=== PATIENT | female | born 1980 | race African-American/Black ===

== ENCOUNTER 2018-10-21 13:12 | Emergency (ER) | payer MEDICAID ==
[~2018-10-21] VITALS: Ht 175.3 cm; Wt 115.7 kg
[2018-10-21 14:40] LABS: Albumin 3.6 g/dL (3.4-5.0); Anion Gap 5 (5-15); Blood Urea Nitrogen 9 mg/dL (7-18); Calcium 8.5 mg/dL (8.5-10.1); Carbon Dioxide 28 mmol/L (21-32); Chloride 106 mmol/L (98-107); Glucose 88 mg/dL (74-106); Magnesium 2.1 mg/dL (1.6-2.6); Potassium 3.6 mmol/L (3.5-5.1); Sodium 139 mmol/L (136-145)
[2018-10-21 14:43] LABS: Basophils # (auto) 0 uL; Basophils % (auto) 0.7 % (0.0-2.0); Eosinophils # (auto) 0.1 uL; Eosinophils % (auto) 1.6 % (0.0-7.0); Hematocrit 40.6 % (36.0-46.0); Hemoglobin 13.7 g/dL (12.2-16.2); Lymphocytes # (auto) 1.7 uL; Lymphocytes % (auto) 29.5 % (10.0-50.0); Mean Corpuscular Hemoglobin 30.9 pg (28.0-32.0); Mean Corpuscular Hgb Conc. 33.7 g/dL (32.0-36.0); Mean Corpuscular Volume 91.8 fL (80.0-100.0); Monocytes # (auto) 0.3 uL; Monocytes % (auto) 4.8 % (0.0-12.0); Neutrophils # (auto) 3.7 uL; Neutrophils % (auto) 63.4 % (37.0-80.0); Nucleated Red Blood Cells % 0.1 %; Platelet Count (auto) 236 10^3/uL (140-450); Red Blood Cells 4.43 10^6/uL (4.0-5.20); Red Cell Distribution Width 13.2 % (11.8-14.3); White Blood Cell 5.8 10^3/uL (4.4-10.8)
[2018-10-21 14:47] LABS: Alanine Aminotransferase 27 U/L (13-56); Alkaline Phosphatase 86 U/L (45-117); Aspartate Aminotransferase 22 U/L (15-37); BUN/Creatinine Ratio 8.3; Bilirubin, Total 0.6 mg/dL (0.2-1.0); GFR African American 72 mL/min; GFR Non-African American 60 mL/min; Total Protein 7.3 g/dL (6.4-8.2)
[2018-10-21] MEDS ORDERED: SODIUM CHLORIDE 0.9% 1,000 ML IV ONE (15:30)
[2018-10-21] MEDS ORDERED: ALBUTEROL SULF 2.5 MG/0.5ML(0.5%) NEB SOLN NEB ONE (15:30)
[2018-10-21] MEDS ORDERED: IPRATROPIUM BROM 0.5 MG/2.5ML INH SOL NEB ONE (15:30)
[2018-10-21 17:13] VITALS: BP 164/99
== END 2018-10-21 17:32 | disposition home or self-care (01) ==
LOC: ER 13:12
DX: J45.901 Unspecified asthma with (acute) exacerbation (principal); M79.661 Pain in right lower leg; I10 Essential (primary) hypertension; E07.9 Disorder of thyroid, unspecified; Z88.5 Allergy status to narcotic agent; Z88.6 Allergy status to analgesic agent; Z88.8 Allergy status to other drugs, medicaments and biological substances; Z90.49 Acquired absence of other specified parts of digestive tract; Z98.51 Tubal ligation status; Z85.038 Personal history of other malignant neoplasm of large intestine
CPT/HCPCS: 36415; 71046; 80053; 83735; 83880; 84484; 84702; 85025; 85379; 93005; 93971; 94640; 99284; J7611; J7644

== ENCOUNTER 2019-09-18 23:07 | Emergency (ER) | payer MEDICAID ==
[~2019-09-18] VITALS: Ht 175.3 cm; Wt 117.9 kg
[2019-09-18] MEDS ORDERED: IPRATROPIUM BROM 0.5 MG/2.5ML INH SOL NEB ONE (23:30)
[2019-09-18] MEDS ORDERED: methylPREDNISolone SOD SUCC 125 MG/2 ML VL IV ONE (23:30)
[2019-09-18] MEDS ORDERED: ALBUTEROL SULF 2.5 MG/0.5ML(0.5%) NEB SOLN NEB ONE ×2 (23:30)
[2019-09-18 23:42] LABS: Basophils # (auto) 0.1 uL; Basophils % (auto) 0.8 % (0.0-2.0); Eosinophils # (auto) 0 uL; Eosinophils % (auto) 0.6 % (0.0-7.0); Hematocrit 39.7 % (36.0-46.0); Hemoglobin 13.5 g/dL (12.2-16.2); Lymphocytes # (auto) 1.9 uL; Lymphocytes % (auto) 26.4 % (10.0-50.0); Mean Corpuscular Hemoglobin 31.5 pg (28.0-32.0); Mean Corpuscular Hgb Conc. 33.9 g/dL (32.0-36.0); Mean Corpuscular Volume 92.8 fL (80.0-100.0); Monocytes # (auto) 0.4 uL; Neutrophils # (auto) 4.7 uL; Neutrophils % (auto) 66.2 % (37.0-80.0); Nucleated Red Blood Cells % 0.1 %; Platelet Count (auto) 239 10^3/uL (140-450); Red Blood Cells 4.27 10^6/uL (4.0-5.20); Red Cell Distribution Width 13.6 % (11.8-14.3)
[2019-09-18 23:59] LABS: Albumin 3.5 g/dL (3.4-5.0); Calcium 8.7 mg/dL (8.5-10.1); Potassium 3.7 mmol/L (3.5-5.1)
[2019-09-19 00:02] LABS: BUN/Creatinine Ratio 11.3
[2019-09-19 00:04] LABS: Bilirubin, Total 0.5 mg/dL (0.2-1.0); Total Protein 7.6 g/dL (6.4-8.2)
[2019-09-19] MEDS ORDERED: LORazepam 2MG/ML-1ML VIAL IV ONE (00:45)
[2019-09-19 02:00] VITALS: BP 140/98
== END 2019-09-19 03:07 | disposition home or self-care (01) ==
LOC: ER 23:11
DX: J45.901 Unspecified asthma with (acute) exacerbation (principal); J06.9 Acute upper respiratory infection, unspecified; I10 Essential (primary) hypertension; Z98.51 Tubal ligation status
CPT/HCPCS: 36415; 71045; 80053; 85025; 94644; 96374; 96375; 99285; J2060; J2930; J7611

== ENCOUNTER 2022-08-08 17:37 | Emergency (ER) | payer MEDICAID ==
[~2022-08-08] VITALS: Ht 175.3 cm; Wt 128.0 kg
[~2022-08-08 17:37] MED LIST: ASPI-394 PO; GABA300C10 PO; MET25T PO; PANT40TA2 PO; RANO500T PO
[2022-08-08 18:44] LABS: Basophils # (auto) 0.1 10 ^3/uL (0-0.2); Basophils % (auto) 1.4 % (0.0-2.0); Eosinophils # (auto) 0.2 10 ^3/uL (0-0.8); Eosinophils % (auto) 2.5 % (0.0-7.0); Hematocrit 42.3 % (36.0-46.0); Hemoglobin 14.4 g/dL (12.2-16.2); Lymphocytes % (auto) 32.7 % (10.0-50.0); Mean Corpuscular Hemoglobin 30.9 pg (28.0-32.0); Mean Corpuscular Volume 90.9 fL (80.0-100.0); Monocytes # (auto) 0.2 10 ^3/uL (0-1.3); Monocytes % (auto) 3.6 % (0.0-12.0); Neutrophils # (auto) 3.6 10 ^3/uL (1.6-8.6); Neutrophils % (auto) 59.8 % (37.0-80.0); Nucleated Red Blood Cells % 0.1 %; Red Blood Cells 4.65 10^6/uL (4.0-5.20); Red Cell Distribution Width 13.6 % (11.8-14.3)
[2022-08-08] MEDS ORDERED: diphenhdrAMINE HCL 50 MG/1 ML VL IV ONE (19:00)
[2022-08-08] MEDS ORDERED: DexAMETHasone SOD PHOS 10MG/1ML VIAL INJ IV ONE (19:00)
[2022-08-08] MEDS ORDERED: LACTATED RINGER'S 1,000 ML IV ONE (19:00)
[2022-08-08] MEDS ORDERED: HALOPERIDOL LACTATE 5 MG/ML INJ VIAL IV ONE (19:00)
[2022-08-08] MEDS ORDERED: ACETAMINOPHEN 325 MG TAB PO ONE (19:00)
[2022-08-08] MEDS ORDERED: MAGNESIUM SULFATE 1GM/100ML 100 ML IV ONE (19:00)
[2022-08-08 19:05] LABS: Albumin 3.8 g/dL (3.4-5.0); BUN/Creatinine Ratio 5.9; Calcium 8.7 mg/dL (8.5-10.1); Potassium 3.6 mmol/L (3.5-5.1)
[2022-08-08 19:08] LABS: Bilirubin, Total 0.5 mg/dL (0.2-1.0); Total Protein 8.1 g/dL (6.4-8.2)
[2022-08-08 21:51] LABS: Urine Bacteria FEW /hpf (None Seen); Urine Blood Negative /uL (Negative); Urine Specific Gravity 1.015 (1.001-1.035); Urine WBC <1 /hpf (0 - 5)
[2022-08-09 03:35] VITALS: BP 143/89
== END 2022-08-09 04:17 | disposition home or self-care (01) ==
LOC: ER 17:37
DX: R51.9 Headache, unspecified (principal); G89.29 Other chronic pain; J45.909 Unspecified asthma, uncomplicated; Z88.8 Allergy status to other drugs, medicaments and biological substances; Z86.73 Personal history of transient ischemic attack (TIA), and cerebral infarction without residual deficits; Z90.49 Acquired absence of other specified parts of digestive tract; Z90.710 Acquired absence of both cervix and uterus; Z98.51 Tubal ligation status; Z98.890 Other specified postprocedural states
CPT/HCPCS: 36415; 70450; 80053; 81001; 84484; 85025; 93005; 96365; 96366; 96375; 99285; J1100; J1200; J1630; J3475

== ENCOUNTER 2023-02-06 14:49 | Emergency (ER) | payer MEDICAID ==
[~2023-02-06] VITALS: Ht 177.8 cm; Wt 111.0 kg
[2023-02-06] MEDS ORDERED: cloNIDine HCL 0.1 MG TAB PO ONE (15:30)
[2023-02-06 16:05] LABS: Basophils # (auto) 0.1 10 ^3/uL (0-0.2); Basophils % (auto) 0.8 % (0.0-2.0); Eosinophils # (auto) 0.2 10 ^3/uL (0-0.8); Eosinophils % (auto) 2.5 % (0.0-7.0); Hematocrit 44.5 % (36.0-46.0); Hemoglobin 14.7 g/dL (12.2-16.2); Lymphocytes # (auto) 1.7 10 ^3/uL (0.4-5.4); Lymphocytes % (auto) 25.7 % (10.0-50.0); Mean Corpuscular Hemoglobin 30.3 pg (28.0-32.0); Mean Corpuscular Hgb Conc. 33.1 g/dL (32.0-36.0); Mean Corpuscular Volume 91.6 fL (80.0-100.0); Monocytes # (auto) 0.3 10 ^3/uL (0-1.3); Monocytes % (auto) 4.5 % (0.0-12.0); Neutrophils # (auto) 4.4 10 ^3/uL (1.6-8.6); Neutrophils % (auto) 66.5 % (37.0-80.0); Nucleated Red Blood Cells % 0.2 %; Red Blood Cells 4.86 10^6/uL (4.0-5.20); Red Cell Distribution Width 13.6 % (11.8-14.3); White Blood Cell 6.7 10^3/uL (4.4-10.8)
[2023-02-06 16:21] LABS: Albumin 3.6 g/dL (3.4-5.0); BUN/Creatinine Ratio 8.8 (10.0-20.0); Calcium 9.5 mg/dL (8.5-10.1); Potassium 3.9 mmol/L (3.5-5.1)
[2023-02-06 16:23] LABS: Bilirubin, Total 0.8 mg/dL (0.2-1.0); Total Protein 7.5 g/dL (6.4-8.2)
[2023-02-06] MEDS ORDERED: LEVO-28 PO ×3 (17:26→18:09)
[2023-02-06] MEDS ORDERED: PRED20TA2 PO ×3 (17:26→18:09)
[2023-02-06 19:26] VITALS: BP 158/94
== END 2023-02-06 19:26 | disposition home or self-care (01) ==
LOC: ER 14:49
DX: J45.909 Unspecified asthma, uncomplicated (principal); M79.604 Pain in right leg; I12.0 Hypertensive chronic kidney disease with stage 5 chronic kidney disease or end stage renal disease; N18.6 End stage renal disease; Z86.73 Personal history of transient ischemic attack (TIA), and cerebral infarction without residual deficits
CPT/HCPCS: 36415; 71045; 80053; 83880; 84484; 85025; 85379; 93005; 93971

== ENCOUNTER 2023-07-25 15:32 | Emergency (ER) | payer MEDICAID ==
[~2023-07-25] VITALS: Ht 175.3 cm; Wt 115.9 kg
[2023-07-25 15:32] VITALS: BP 156/96; PULSE 90; RESP 18; O2SAT 98
[~2023-07-25 15:32] MED LIST changes: +ALBU108A5 INH; +AMIO200T33 PO; +AMIT25TA20 PO; +APIX5TAB PO; -ASPI-394 PO; +ATOR40TA52 PO; +BUDE1AER5 PO; +CHLO25TA2 PO; +DICL1GEL73 TOP; +DIPH25CA66 PO; +DUPI300I SC; -GABA300C10 PO; +LIDO1.8P TOP; +LOSA100T58 PO; +MAGN241.6 PO; +MONT4CHW18 PO; +NIFE1TAB30 PO; -PANT40TA2 PO; +PANT40TA57 PO; -RANO500T PO; +RANO500T3 PO; +RIZA10TA50 PO; +SEMA2.4I SC
[2023-07-25] MEDS ORDERED: methylPREDNISolone SOD SUCC 40 MG/ML VL IM ONE (16:00)
[2023-07-25] MEDS ORDERED: KETOROLAC TROMETH 60MG/2ML VIAL IM ONE (16:00)
== END 2023-07-25 16:42 | disposition home or self-care (01) ==
LOC: ER 15:32
DX: M54.16 Radiculopathy, lumbar region (principal); I12.0 Hypertensive chronic kidney disease with stage 5 chronic kidney disease or end stage renal disease; N18.6 End stage renal disease; J45.909 Unspecified asthma, uncomplicated; K21.9 Gastro-esophageal reflux disease without esophagitis; Z90.710 Acquired absence of both cervix and uterus; Z98.51 Tubal ligation status; Z88.6 Allergy status to analgesic agent; Z88.0 Allergy status to penicillin; Z88.8 Allergy status to other drugs, medicaments and biological substances; Z88.1 Allergy status to other antibiotic agents; Z86.73 Personal history of transient ischemic attack (TIA), and cerebral infarction without residual deficits
CPT/HCPCS: 96372; 99284; J1885; J2920

== ENCOUNTER 2023-08-03 22:15 | Emergency (ER) | payer MEDICAID ==
[~2023-08-03] VITALS: Ht 175.3 cm; Wt 116.3 kg
[2023-08-03 22:59] LABS: Basophils # (auto) 0.1 10 ^3/uL (0-0.2); Basophils % (auto) 0.8 % (0.0-2.0); Eosinophils # (auto) 0.1 10 ^3/uL (0-0.8); Eosinophils % (auto) 0.8 % (0.0-7.0); Hematocrit 41.2 % (36.0-46.0); Lymphocytes # (auto) 2.6 10 ^3/uL (0.4-5.4); Lymphocytes % (auto) 23.3 % (10.0-50.0); Mean Corpuscular Hemoglobin 31.4 pg (28.0-32.0); Mean Corpuscular Hgb Conc. 34.1 g/dL (32.0-36.0); Mean Corpuscular Volume 92.1 fL (80.0-100.0); Monocytes # (auto) 0.5 10 ^3/uL (0-1.3); Monocytes % (auto) 4.8 % (0.0-12.0); Neutrophils # (auto) 7.9 10 ^3/uL (1.6-8.6); Neutrophils % (auto) 70.3 % (37.0-80.0); Nucleated Red Blood Cells % 0.1 %; Red Blood Cells 4.47 10^6/uL (4.0-5.20); Red Cell Distribution Width 13.2 % (11.8-14.3); White Blood Cell 11.2 10^3/uL (4.4-10.8)
[2023-08-03 23:19] LABS: Alanine Aminotransferase 17 U/L (7-40); Albumin 4.5 g/dL (3.2-4.8); Alkaline Phosphatase 107 U/L (46-116); Anion Gap 7 (5-15); Aspartate Aminotransferase 17 U/L (13-40); BUN/Creatinine Ratio 8.2 (10.0-20.0); Blood Urea Nitrogen 14 mg/dL (9-23); Calcium 9.5 mg/dL (8.7-10.4); Carbon Dioxide 25 mmol/L (20-30); Chloride 106 mmol/L (98-107); Glucose 68 mg/dL (74-106); Magnesium 2.1 mg/dL (1.6-2.6); Potassium 3.6 mmol/L (3.5-5.1); Sodium 138 mmol/L (136-145)
[2023-08-03 23:20] LABS: Bilirubin, Total 0.7 mg/dL (0.2-1.0); Total Protein 7.9 g/dL (5.7-8.2)
[2023-08-03 23:37] LABS: Urine Bacteria FEW /hpf (None Seen); Urine Blood Negative /uL (Negative); Urine Clarity Clear (Clear); Urine Color Yellow (Yellow); Urine Hyaline Cast FEW /lpf (0 - 2); Urine Mucus FEW (None Seen); Urine Protein, UAD TRACE (Negative); Urine Specific Gravity 1.029 (1.001-1.035); Urine Urobilinogen Normal (Negative); Urine WBC <1 /hpf (0 - 5); Urine pH 5.5 (5.0-8.0)
[2023-08-04 00:10] LABS: Amphetamine Screen, Urine Neg (NEGATIVE); Barbiturate Scree,Urine Neg (NEGATIVE); Benzodiazephine Screen, Urine Neg (NEGATIVE); Cannabinoid Screen, Urine Neg (NEGATIVE); Cocaine Screen, Urine Neg (NEGATIVE); Opiate Scree,Urine Neg (NEGATIVE); Phencyclidine Screen, Urine Neg (NEGATIVE)
[2023-08-04 04:20] VITALS: BP 123/84; PULSE 85; RESP 19; TEMP 98; O2SAT 99
== END 2023-08-04 04:28 | disposition home or self-care (01) ==
LOC: ER 22:17
DX: R00.2 Palpitations (principal); R10.2 Pelvic and perineal pain; I12.0 Hypertensive chronic kidney disease with stage 5 chronic kidney disease or end stage renal disease; N18.6 End stage renal disease; K21.9 Gastro-esophageal reflux disease without esophagitis; J45.909 Unspecified asthma, uncomplicated; Z86.73 Personal history of transient ischemic attack (TIA), and cerebral infarction without residual deficits; Z85.9 Personal history of malignant neoplasm, unspecified; Z90.710 Acquired absence of both cervix and uterus; Z98.890 Other specified postprocedural states; Z88.8 Allergy status to other drugs, medicaments and biological substances; Z79.899 Other long term (current) drug therapy
CPT/HCPCS: 36415; 71045; 80053; 80307; 81001; 83735; 84484; 84702; 85025; 93005

== ENCOUNTER 2023-09-22 20:09 | Emergency (ER) | payer MEDICAID ==
[~2023-09-22] VITALS: Ht 175.3 cm; Wt 115.0 kg
[2023-09-22 20:27] VITALS: BP 140/98; PULSE 99; RESP 18; TEMP 98.5; O2SAT 99
[2023-09-22] MEDS ORDERED: IBUP1TAB5 PO ×2 (22:01)
== END 2023-09-22 22:28 | disposition home or self-care (01) ==
LOC: ER 20:09
DX: S92.521A Displaced fracture of middle phalanx of right lesser toe(s), initial encounter for closed fracture (principal); I12.0 Hypertensive chronic kidney disease with stage 5 chronic kidney disease or end stage renal disease; N18.6 End stage renal disease; K21.9 Gastro-esophageal reflux disease without esophagitis; J45.909 Unspecified asthma, uncomplicated; Z86.73 Personal history of transient ischemic attack (TIA), and cerebral infarction without residual deficits; Z90.710 Acquired absence of both cervix and uterus; Z88.0 Allergy status to penicillin; Z88.6 Allergy status to analgesic agent; Z88.8 Allergy status to other drugs, medicaments and biological substances; Z98.51 Tubal ligation status; W18.39XA Other fall on same level, initial encounter; Y93.89 Activity, other specified; Y92.89 Other specified places as the place of occurrence of the external cause; Y99.8 Other external cause status
CPT/HCPCS: 73660

== ENCOUNTER 2023-12-06 09:16 | Emergency (ER) | payer MEDICAID ==
[~2023-12-06] VITALS: Ht 175.3 cm; Wt 109.3 kg
[2023-12-06 10:38] VITALS: BP 141/82; PULSE 98; RESP 20; TEMP 98.3; O2SAT 97
[2023-12-06] MEDS: DexAMETHasone SOD PHOS 10MG/1ML VIAL INJ IM ONE (10:49)
== END 2023-12-06 10:52 | disposition home or self-care (01) ==
LOC: ER 09:16
DX: J06.9 Acute upper respiratory infection, unspecified (principal); B97.89 Other viral agents as the cause of diseases classified elsewhere; R07.89 Other chest pain; I12.0 Hypertensive chronic kidney disease with stage 5 chronic kidney disease or end stage renal disease; N18.6 End stage renal disease; Z99.2 Dependence on renal dialysis; J45.909 Unspecified asthma, uncomplicated; K21.9 Gastro-esophageal reflux disease without esophagitis; E03.9 Hypothyroidism, unspecified; Z86.73 Personal history of transient ischemic attack (TIA), and cerebral infarction without residual deficits; Z90.49 Acquired absence of other specified parts of digestive tract; Z90.710 Acquired absence of both cervix and uterus
CPT/HCPCS: 71046; 96372; 99283; J1100

== ENCOUNTER 2024-03-22 21:32 | Emergency (ER) | payer MEDICAID ==
[~2024-03-22 21:32] MED LIST changes: +LOSA-535 PO; -LOSA100T58 PO
== END 2024-03-23 00:49 | disposition left against medical advice (07) ==
LOC: ER 21:32
DX: L02.91 Cutaneous abscess, unspecified (principal); Z53.21 Procedure and treatment not carried out due to patient leaving prior to being seen by health care provider

== ENCOUNTER 2024-05-07 18:32 | Emergency (ER) | payer MEDICAID ==
[~2024-05-07] VITALS: Ht 175.3 cm; Wt 117.5 kg
[2024-05-07 18:46] VITALS: BP 153/108; PULSE 101; RESP 18; O2SAT 99
== END 2024-05-07 23:46 | disposition left against medical advice (07) ==
LOC: ER 18:32
DX: R11.2 Nausea with vomiting, unspecified (principal); R10.9 Unspecified abdominal pain; Z53.21 Procedure and treatment not carried out due to patient leaving prior to being seen by health care provider

== ENCOUNTER 2024-06-19 17:08 | Emergency (ER) | payer MEDICAID ==
[~2024-06-19] VITALS: Ht 175.3 cm; Wt 12.4 kg
[2024-06-19 17:15] VITALS: BP 187/125; RESP 18; O2SAT 97
[2024-06-19] MEDS: cloNIDine HCL 0.1 MG TAB PO ONE (17:26)
[2024-06-19 18:17] LABS: Basophils # (auto) 0 10 ^3/uL (0-0.2); Basophils % (auto) 0.5 % (0.0-2.0); Eosinophils # (auto) 0.1 10 ^3/uL (0-0.8); Eosinophils % (auto) 1.8 % (0.0-7.0); Hematocrit 40.2 % (36.0-46.0); Lymphocytes # (auto) 1.8 10 ^3/uL (0.4-5.4); Lymphocytes % (auto) 28.5 % (10.0-50.0); Mean Corpuscular Hemoglobin 31.8 pg (28.0-32.0); Mean Corpuscular Hgb Conc. 34.7 g/dL (32.0-36.0); Mean Corpuscular Volume 91.8 fL (80.0-100.0); Monocytes # (auto) 0.2 10 ^3/uL (0-1.3); Monocytes % (auto) 2.5 % (0.0-12.0); Neutrophils # (auto) 4.1 10 ^3/uL (1.6-8.6); Neutrophils % (auto) 66.7 % (37.0-80.0); Nucleated Red Blood Cells % 0.1 %; Platelet Count (auto) 303 10^3/uL (140-450); Red Blood Cells 4.38 10^6/uL (4.0-5.20); White Blood Cell 6.2 10^3/uL (4.4-10.8)
[2024-06-19 18:31] LABS: Alanine Aminotransferase 26 U/L (7-40); Alkaline Phosphatase 99 U/L (46-116); Calcium 9.8 mg/dL (8.7-10.4); Carbon Dioxide 28 mmol/L (20-30); Chloride 107 mmol/L (98-107)
[2024-06-19 18:32] LABS: Albumin 4.4 g/dL (3.2-4.8); Anion Gap 6 (5-15); Aspartate Aminotransferase 23 U/L (13-40); BUN/Creatinine Ratio 8.7 (10.0-20.0); Bilirubin, Total 0.7 mg/dL (0.2-1.0); Blood Urea Nitrogen 10 mg/dL (9-23); Glucose 83 mg/dL (74-106); Sodium 141 mmol/L (136-145); Total Protein 7.5 g/dL (5.7-8.2)
[2024-06-19] MEDS ORDERED: PROMETHAZINE HCL 6.25 MG/5 ML ORAL SYRUP PO ONE (19:45)
[2024-06-19 19:56] VITALS: PULSE 95
== END 2024-06-19 22:40 | disposition home or self-care (01) ==
LOC: ER 17:08
DX: I16.0 Hypertensive urgency (principal); I10 Essential (primary) hypertension; K21.9 Gastro-esophageal reflux disease without esophagitis; I12.0 Hypertensive chronic kidney disease with stage 5 chronic kidney disease or end stage renal disease; N18.6 End stage renal disease; J45.909 Unspecified asthma, uncomplicated; Z97.10 Presence of artificial limb (complete) (partial), unspecified; Z98.51 Tubal ligation status; Z88.0 Allergy status to penicillin; Z88.6 Allergy status to analgesic agent; Z88.8 Allergy status to other drugs, medicaments and biological substances; Z86.73 Personal history of transient ischemic attack (TIA), and cerebral infarction without residual deficits
CPT/HCPCS: 36415; 80053; 84484; 85025; 93005

== ENCOUNTER 2024-10-08 21:47 | Emergency (ER) | payer MEDICAID ==
[~2024-10-08] VITALS: Ht 175.3 cm; Wt 123.0 kg
--- NOTE | 2024-10-08 22:03 | ED.PDOC ---
HPI Comments 44-year-old female presents with a chief complaint of chest pain x 20 minutes. Patient states that her chest pain is localized to her sternal region, non- radiating, describes as heaviness, and rates her pain a 10/10. Patient reports that this has happened to her before in the past x 1 year ago and was told at that time that she had A-Fib. Patient mentions that she takes Metoprolol and Plavix for her heart. Patient reports that she is allergic to aspirin. EKG shows Sinus Tach with a rate of 121. Chief Complaint: Chest Pain Time Seen by MD: 21:57 Primary Care Provider: TICO INIGUEZ Reviewed Notes: Medications, Allergies Allergies: Coded Allergies: Acetaminophen (Verified Allergy, Unknown, 09/06/15) Aspirin (Verified Allergy, Unknown, 11/21/19) Codeine (Verified Allergy, Unknown, 11/21/19) Hydrocodone (Verified Allergy, Unknown, 09/06/15) Hydromorphone (Verified Allergy, Unknown, 11/21/19) Levothyroxine (Verified Allergy, Unknown, 09/06/15) Lisinopril (Verified Allergy, Unknown, 11/21/19) Methadone (Verified Allergy, Unknown, 11/21/19) Morphine (Verified Allergy, Unknown, 09/06/15) Mupirocin (Verified Allergy, Unknown, 11/21/19) Nitrofurantoin (Verified Allergy, Unknown, 09/06/15) Nitroglycerin (Verified Allergy, Unknown, 11/21/19) Penicillins (Verified Allergy, Unknown, 11/21/19) Tramadol (Verified Allergy, Unknown, 11/21/19) Home Meds Active Scripts Ranolazine (Ranolazine ER) 500 Mg Tab, 500 MG PO BID, #60 TAB 3 Refills Prov:RICKIE MCNALLY MD 05/05/23 Amiodarone Hcl (Amiodarone Hcl) 200 Mg Tab, 200 MG PO BID, #60 TAB 5 Refills Prov:RICKIE MCNALLY MD 05/05/23 Metoprolol Tartrate (Lopressor) 25 Mg Tb, 25 MG PO BID, #60 TAB 5 Refills Prov:RICKIE MCNALLY MD 05/05/23 Apixaban Base (ELIQUIS) 5 Mg Tab, 5 MG PO BID, #60 TAB 5 Refills Prov:RICKIE MCNALLY MD 05/05/23 Reported Medications Dupilumab (Dupixent) 300 Mg/2 Ml Inj, SC 05/04/23 Budesonide-Formoterol Fumarate (Budesonide/Formoterol Fum 80-4.5 Mcg/Act) 1 Aer Aer, PO 05/04/23 Amitriptyline Hcl (Amitriptyline Hcl) 25 Mg Tab, 2 TAB PO DAILY 05/04/23 Atorvastatin Calcium (ATORVASTATIN CALCIUM) 40 Mg Tab, 1 TAB PO DAILY 05/04/23 Semaglutide (Wegovy) 2.4 Mg/0.75 Ml Inj, SC 05/04/23 Montelukast Sodium (MONTELUKAST SODIUM) 4 Mg Chw, 1 TAB PO DAILY 05/04/23 Albuterol Sulfate (Albuterol Sulfate Hfa) 108 Mcg/Act Aer, 2 PUFF INH Q4HPRN PRN for wheezing 05/04/23 Pantoprazole Sodium Sesquihydr (Pantoprazole Sodium Dr) 40 Mg Tab, 1 TAB PO DAILY 05/04/23 Nifedipine (Nifedipine Er) 60 Mg Tab, 1 TAB PO DAILY 05/04/23 Magnesium Oxide (mg Supplement (Magnesium-Oxide) 400 Mg Tab, 1 TAB PO DAILY 05/04/23 Losartan Potassium (Losartan Potassium) 100 Mg Tab, 1 TAB PO DAILY 05/04/23 Lidocaine (Ztlido) 1.8 % Pad, 1 PATCH TOP DAILY 05/04/23 Chlorthalidone (Chlorthalidone) 25 Mg Tab, 1 TAB PO DAILY 05/04/23 Rizatriptan Benzoate (RIZATRIPTAN BENZOATE) 10 Mg Tab, PO 05/04/23 Diclofenac Sodium (Topical) (Diclofenac Sodium) 1 % Gel, TOP 05/04/23 Diphenhydramine Hcl (Benadryl Allergy) 25 Mg Cap, 1 CAP PO QPM, #30 CAP 1 Refill 05/04/23 Information Source: Patient Mode of Arrival: Ambulatory Severity: Moderate Timing: Minutes Duration: Since onset Prehospital treatment: None Location: Substernal Radiation: No Radiation Quality: Heavy Onset: At Rest Cardiac Risk Factors: Other (AFIB) PE Risk Factors: None History of: Similar pain in past Associated Signs and Symptoms: None Past Medical History PAST MEDICAL HISTORY: Asthma, Cancer, ESRD, GERD, HTN, Seizures, Thyroid, TIA Surgical History: Appendectomy, Hysterectomy, Tubal Ligation CLINICAL SERVICES PROFESSIONAL History: No Pertinent CLINICAL SERVICES PROFESSIONAL History Family History Family History: Reviewed,noncontributory to illness, Family hx of DM, Family hx of Cancer, Family hx of heart rikki, Family hx of HTN, Family hx of Kidney rikki Social History Smoker: Non-Smoker Alcohol: Denies ETOH Use Drugs: Denies Drug Use Lives In: Home Constitutional: denies: chills, diaphoresis, fatigue, fever, malaise, sweats, weakness, others EENTM: denies: blurred vision, double vision, ear bleeding, ear discharge, ear drainage, ear pain, ear ringing, eye pain, eye redness, hearing loss, mouth pain, mouth swelling, nasal discharge, nose bleeding, nose congestion, nose pain, photophobia, tearing, throat pain, throat swelling, voice changes, others Respiratory: denies: cough, hemoptysis, orthopnea, SOB at rest, shortness of breath, SOB with excertion, stridor, wheezing, others Cardiovascular: reports: chest pain; denies: dizzy spells, diaphoresis, Dyspnea on exertion, edema, irregular heart beat, left arm pain, lightheadedness, palpitations, PND, syncope, others Gastrointestinal: denies: abdomen distended, abdominal pain, blood streaked bowels, constipated, diarrhea, dysphagia, difficulty swallowing, hematemesis, melena, nausea, poor appetite, poor fluid intake, rectal bleeding, rectal pain, vomiting, others Genitourinary: denies: abnormal vagina bleeding, burning, dyspareunia, dysuria, flank pain, frequency, hematuria, incontinence, pain, , vagina discharge, urgency, others Neurological: denies: dizziness, fainting, headache, left sided numbness, left sided weakness, numbness, paresthesia, pre-existing deficit, right sided numbness, right sided weakness, seizure, speech problems, tingling, tremors, weakness, others Musculoskeletal: denies: back pain, gout, joint pain, joint swelling, muscle pain, muscle stiffness, neck pain, others Integumetry: denies: bruises, change in color, change in hair/nails, dryness, laceration, lesions, lumps, rash, wounds, others Allergic/Immunocompromised: denies: Difficulty Healing, Frequent Infections, Hives, Itching, others Hematologic/Lymphatic: denies: anemia, blood clots, easy bleeding, easy bruising, swollen glands, others Endocrine: denies: excessive hunger, excessive sweating, excessive thirst, excessive urination, flushing, intolerance to cold, intolerance to heat, unexplained weight gain, unexplained weight loss, others Psychiatric: denies: anxiety, bipolar disorder, depression, hopeless, panic disorder, schizophrenia, sleepless, suicidal, others All Other Systems: Reviewed and Negative Physical Exam General Appearance: No Apparent Distress, Normal HEENT: Normal ENT Inspection, Pharynx Normal, TMs Normal Neck: Full Range of Motion, Non-Tender, Normal, Normal Inspection Respiratory: Chest Non-Tender, Lungs Clear, No Accessory Muscle Use, No Respiratory Distress, Normal Breath Sounds Cardiovascular: No Edema, No JVD, No Murmur, No Gallop, Normal Peripheral Pulses, Tachycardia Breast Exam: Deferred Gastrointestinal: No Organomegaly, Non Tender, No Pulsatile Mass, Normal Bowel Sounds, Soft Genitalia: Deferred Pelvic: Deferred Rectal: Deferred Extremities: No calf tenderness, Normal capillary refill, Normal inspection, Normal range of motion, Non-tender, No pedal edema Musculoskeletal : Apperance: Normal Neurologic: Alert, glue cook II-XII nml as Tested, No Motor Deficits, Normal Affect, Normal Mood, No Sensory Deficits Cerebellar Function: Normal Reflexes: Normal Skin: Dry, Normal Color, Warm Lymphatic: No Adenopathy EKG EKG : Pulse Rate (adult): 121 [place]: Normal Cardiac Rhythm: ST Block: None Hypertrophy: None ST: Normal Was a procedure done? Was a procedure done?: No CP Differential Dx Differential Diagnosis: A-fib, A-Flutter, PAC's Differential Diagnosis: CHF, HTN Essential Differential Diagnosis: Gastritis, Myocardial Infarction, Pericarditis X-Ray, Labs, Meds, VS Vital Signs Date Time Temp Pulse Resp B/P (MAP) Pulse Ox O2 Delivery O2 Flow Rate FiO2 10/09/24 00:48 102 10/08/24 22:47 108 10/08/24 22:05 98.2 125 18 150/107 (121) 97 10/08/24 22:03 121 10/08/24 21:53 121 Lab Test 10/08/24 23:43 10/08/24 22:00 Range/Units Troponin I High Sensitivity < 3 L < 3 L </=34 ng/L White Blood Count 10.2 4.4-10.8 10^3/uL Red Blood Count 4.93 4.0-5.20 10^6/uL Hemoglobin 15.4 12.2-16.2 g/dL Hematocrit 46.0 36.0-46.0 % Mean Corpuscular Volume 93.3 80.0-100.0 fL Mean Corpuscular Hemoglobin 31.2 28.0-32.0 pg Mean Corpuscular Hemoglobin Concent 33.4 32.0-36.0 g/dL Red Cell Distribution Width 14.3 11.8-14.3 % Platelet Count 269 140-450 10^3/uL Mean Platelet Volume 8.1 6.9-10.8 fL Neutrophils (%) (Auto) 64.3 37.0-80.0 % Lymphocytes (%) (Auto) 30.2 10.0-50.0 % Monocytes (%) (Auto) 4.8 0.0-12.0 % Eosinophils (%) (Auto) 0.3 0.0-7.0 % Basophils (%) (Auto) 0.4 0.0-2.0 % Neutrophils # (Auto) 6.6 1.6-8.6 10 ^3/uL Lymphocytes # (Auto) 3.1 0.4-5.4 10 ^3/uL Monocytes # (Auto) 0.5 0-1.3 10 ^3/uL Eosinophils # (Auto) 0 0-0.8 10 ^3/uL Basophils # (Auto) 0 0-0.2 10 ^3/uL Nucleated Red Blood Cells 0.1 % Sodium Level 142 136-145 mmol/L Potassium Level 3.3 L 3.5-5.1 mmol/L Chloride Level 103 98-107 mmol/L Carbon Dioxide Level 24 20-31 mmol/L Anion Gap 15 5-15 Blood Urea Nitrogen 22 9-23 mg/dL Creatinine 1.75 H 0.550-1.02 mg/dL Glomerular Filtration Rate Calc 36 >90 mL/min BUN/Creatinine Ratio 12.6 10.0-20.0 Serum Glucose 146 H 74-106 mg/dL Calcium Level 10.3 8.7-10.4 mg/dL Total Bilirubin 0.5 0.2-1.0 mg/dL Aspartate Amino Transferase (AST) 35 13-40 U/L Alanine Aminotransferase (ALT) 44 H 7-40 U/L Alkaline Phosphatase 95 46-116 U/L Total Protein 7.9 5.7-8.2 g/dL Albumin 4.7 3.2-4.8 g/dL Time of 1ST Reevaluation: 22:27 Reevaluation 1ST: Unchanged Patient Education/Counseling: Diagnosis, Treatment, Prognosis Family Education/Counseling: No Family Present Departure 1 Departure Time of Disposition: 00:58 (Patient presented with chest pain that was concerning for possible STEMI, ACS, PE, Pneumonia, Muscle Strain, COPD, Dissection. Data: 1. I ordered and reviewed the result of at least 3 labs including a CBC, BMP, and Troponin. 2. I independently interpreted the following tests: EKG which shows normal sinus rhythm and Chest X-ray which shows a benign chest.Risk:This patient presented with a high risk of morbidity due to further diagnostic testing or treatment and may suffer from an acute cardiac or respiratory disorder. After review of all the data patient is unlikely to have a pe , dissection, and is low risk for acs. Patient is stable at this time.Workup so far is benign and patient will be discharged with outpatient followup. ) Impression: Primary Impression: Acute chest pain Additional Impression: Afib Qualified Codes: I48.11 - Longstanding persistent atrial fibrillation Disposition: HOME / SELF CARE / HOMELESS Condition: Stable Additional Instructions: You presented today with chest pain. Your workup today was benign including labs, troponin, EKG, chest x-ray. Your pain may be from musculoskeletal strain, acid reflux, anxiety, or many other factors. It is important to follow up with your regular doctor within 1 week. If your symptoms worsen or you have any other concerns please return to the emergency room. Discharged With: Self Critical Care Note Critical Care Time?: Yes Critical care comment: Acute chest pain Authorized and Performed by: Josiane Bull MD Total critical care time: Approximately 31 minutes Due to a high probability of clinically significant, life threatening deterioration, the patient required my highest level of preparedness to intervene emergently and I personally spent this critical care time directly and personally managing the patient. This critical care time included obtaining a history; examining the patient; pulse oximetry; ordering and review of studies; arranging urgent treatment with development of a management plan; evaluation of patient's response to treatment; frequent reassessment; and, discussions with other providers. This critical care time was performed to assess and manage the high probability of imminent, life-threatening deterioration that could result in multi-organ failure. It was exclusive of separately billable procedures and treating other patients and teaching time. Please see my other sections and the rest of the note for further information on patient assessment and treatment. Stability Stability form required: No Heart Score Heart Score: Heart Score Response (Comments) Value History Slightly Suspicious 0 EKG Repolarization Disturb 1 Age 45-64 1 Risk Factors 1 or 2 risk factors 1 Troponin Normal limit 0 Total 3 I personally scribed for JOSIANE BULL MD ([email or web address]) on 10/08/24 at 22:03. Electronically submitted by Ernesto Hwang ([email or web address]). JOSIANE BULL MD Oct 08, 2024 22:03
[2024-10-08 22:33] LABS: Basophils # (auto) 0 10 ^3/uL (0-0.2); Basophils % (auto) 0.4 % (0.0-2.0); Eosinophils # (auto) 0 10 ^3/uL (0-0.8); Eosinophils % (auto) 0.3 % (0.0-7.0); Hemoglobin 15.4 g/dL (12.2-16.2); Lymphocytes # (auto) 3.1 10 ^3/uL (0.4-5.4); Lymphocytes % (auto) 30.2 % (10.0-50.0); Mean Corpuscular Hemoglobin 31.2 pg (28.0-32.0); Mean Corpuscular Hgb Conc. 33.4 g/dL (32.0-36.0); Mean Corpuscular Volume 93.3 fL (80.0-100.0); Monocytes # (auto) 0.5 10 ^3/uL (0-1.3); Monocytes % (auto) 4.8 % (0.0-12.0); Neutrophils # (auto) 6.6 10 ^3/uL (1.6-8.6); Neutrophils % (auto) 64.3 % (37.0-80.0); Nucleated Red Blood Cells % 0.1 %; Platelet Count (auto) 269 10^3/uL (140-450); Red Blood Cells 4.93 10^6/uL (4.0-5.20); Red Cell Distribution Width 14.3 % (11.8-14.3); White Blood Cell 10.2 10^3/uL (4.4-10.8)
--- NOTE | 2024-10-08 22:39 | DVH ---
EXAMINATION: AP portable chest radiograph CLINICAL HISTORY: CHEST PAIN COMPARISON: XY CHEST PORTABLE on DOS: 08/03/23, XY CHEST PORTABLE on DOS: 05/03/23, XY CHEST PORTABLE on DOS: 02/06/23 Technique: Single upright view of the chest FINDINGS: Negative AP chest. No dominant consolidations. The costophrenic angles are clear. No sizable pleural effusions or pneumo thorax identified. The cardiomediastinal silhouette appears within normal limits given technique. IMPRESSION: 1. Negative AP chest.
[2024-10-08 22:41] LABS: Albumin 4.7 g/dL (3.2-4.8); Alkaline Phosphatase 95 U/L (46-116); Anion Gap 15 (5-15); Aspartate Aminotransferase 35 U/L (13-40); BUN/Creatinine Ratio 12.6 (10.0-20.0); Blood Urea Nitrogen 22 mg/dL (9-23); Calcium 10.3 mg/dL (8.7-10.4); Carbon Dioxide 24 mmol/L (20-31); Chloride 103 mmol/L (98-107); Sodium 142 mmol/L (136-145)
[2024-10-08 22:42] LABS: Bilirubin, Total 0.5 mg/dL (0.2-1.0); Total Protein 7.9 g/dL (5.7-8.2)
[2024-10-08 23:22] LABS: Alanine Aminotransferase 44 U/L (7-40); Glucose 146 mg/dL (74-106); Potassium 3.3 mmol/L (3.5-5.1)
[2024-10-09 01:41] VITALS: BP 109/61; PULSE 97; RESP 18; TEMP 98.5; O2SAT 100
--- NOTE | 2024-10-10 12:44 | ECG ---
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
--- NOTE | 2024-10-10 12:44 | ECG ---
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
--- NOTE | 2024-10-10 12:45 | ECG ---
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
== END 2024-10-09 01:51 | disposition home or self-care (01) ==
LOC: ER 21:47
DX: I48.91 Unspecified atrial fibrillation (principal); R07.89 Other chest pain; I12.0 Hypertensive chronic kidney disease with stage 5 chronic kidney disease or end stage renal disease; N18.6 End stage renal disease; J45.909 Unspecified asthma, uncomplicated; K21.9 Gastro-esophageal reflux disease without esophagitis; Z79.01 Long term (current) use of anticoagulants; Z79.899 Other long term (current) drug therapy; Z86.73 Personal history of transient ischemic attack (TIA), and cerebral infarction without residual deficits; Z88.0 Allergy status to penicillin; Z88.1 Allergy status to other antibiotic agents; Z88.5 Allergy status to narcotic agent; Z88.6 Allergy status to analgesic agent; Z88.8 Allergy status to other drugs, medicaments and biological substances; Z90.49 Acquired absence of other specified parts of digestive tract; Z90.710 Acquired absence of both cervix and uterus
CPT/HCPCS: 36415; 71045; 80053; 84484; 85025; 93005; 99291

== ENCOUNTER 2025-01-12 22:14 | Emergency (ER) | payer MEDICAID ==
[~2025-01-12] VITALS: Ht 175.3 cm; Wt 121.0 kg
[2025-01-12] MEDS: ALBUTEROL SULF 2.5 MG/0.5ML(0.5%) NEB SOLN NEB ONE (23:04)
--- NOTE | 2025-01-12 23:22 | DVH ---
CHEST RADIOGRAPH Indication: sob Technique: Single frontal view of the chest was obtained Comparison: XY CHEST PORTABLE on DOS: 10/08/24, XY CHEST PORTABLE on DOS: 08/03/23, XY CHEST PORTABLE on DOS: 05/03/23, XY CHEST PORTABLE on DOS: 02/06/23, EKG on DOS: 08/08/22 FINDINGS: The cardiac silhouette is borderline enlarged. The lungs demonstrate patchy airspace opacities. The p ulmonary vasculature is prominent. Small left pleural effusion. There is no pneumothorax. IMPRESSION: 1. Pulmonary vascular congestion and bilateral patchy airspace opacities. 2. Small left pleural effusion.
[2025-01-12] MEDS: DexAMETHasone SOD PHOS 10MG/1ML VIAL INJ PO ONE (23:23)
[2025-01-12 23:24] VITALS: PULSE 84; RESP 20; O2SAT 95
--- NOTE | 2025-01-13 01:28 | ED.PDOC ---
History of Present Illness HPI Comments 44 y/o obese F, with a history of Asthma, Cancer, ESRD, GERD, HTN, Seizures, Thyroid, TIA, presents with c/o shortness of breath, cough, and wheezing, today. Patient endorses on ongoing symptoms following unprovoked onset 5 days ago. She reports on symptoms worsening whenever laying down. She denies any phlegm production, chest pain, fever, chills, or other associated symptoms or modifiers at this time. Chief Complaint: Shortness of Breath Time Seen by MD: 22:50 Primary Care Provider: TICO INIGUEZ Reviewed Notes: Nurses Notes, Medications, Allergies Allergies: Coded Allergies: Acetaminophen (Verified Allergy, Unknown, 09/06/15) Aspirin (Verified Allergy, Unknown, 11/21/19) Codeine (Verified Allergy, Unknown, 11/21/19) Hydrocodone (Verified Allergy, Unknown, 09/06/15) Hydromorphone (Verified Allergy, Unknown, 11/21/19) Levothyroxine (Verified Allergy, Unknown, 09/06/15) Lisinopril (Verified Allergy, Unknown, 11/21/19) Methadone (Verified Allergy, Unknown, 11/21/19) Morphine (Verified Allergy, Unknown, 09/06/15) Mupirocin (Verified Allergy, Unknown, 11/21/19) Nitrofurantoin (Verified Allergy, Unknown, 09/06/15) Nitroglycerin (Verified Allergy, Unknown, 11/21/19) Penicillins (Verified Allergy, Unknown, 11/21/19) Tramadol (Verified Allergy, Unknown, 11/21/19) Home Meds Active Scripts Ranolazine (Ranolazine ER) 500 Mg Tab, 500 MG PO BID, #60 TAB 3 Refills Prov:RICKIE MCNALLY MD 05/05/23 Amiodarone Hcl (Amiodarone Hcl) 200 Mg Tab, 200 MG PO BID, #60 TAB 5 Refills Prov:RICKIE MCNALLY MD 05/05/23 Metoprolol Tartrate (Lopressor) 25 Mg Tb, 25 MG PO BID, #60 TAB 5 Refills Prov:RICKIE MCNALLY MD 05/05/23 Apixaban Base (ELIQUIS) 5 Mg Tab, 5 MG PO BID, #60 TAB 5 Refills Prov:RICKIE MCNALLY MD 05/05/23 Reported Medications Dupilumab (Dupixent) 300 Mg/2 Ml Inj, SC 05/04/23 Budesonide-Formoterol Fumarate (Budesonide/Formoterol Fum 80-4.5 Mcg/Act) 1 Aer Aer, PO 05/04/23 Amitriptyline Hcl (Amitriptyline Hcl) 25 Mg Tab, 2 TAB PO DAILY 05/04/23 Atorvastatin Calcium (ATORVASTATIN CALCIUM) 40 Mg Tab, 1 TAB PO DAILY 05/04/23 Semaglutide (Wegovy) 2.4 Mg/0.75 Ml Inj, SC 05/04/23 Montelukast Sodium (MONTELUKAST SODIUM) 4 Mg Chw, 1 TAB PO DAILY 05/04/23 Albuterol Sulfate (Albuterol Sulfate Hfa) 108 Mcg/Act Aer, 2 PUFF INH Q4HPRN PRN for wheezing 05/04/23 Pantoprazole Sodium Sesquihydr (Pantoprazole Sodium Dr) 40 Mg Tab, 1 TAB PO DAILY 05/04/23 Nifedipine (Nifedipine Er) 60 Mg Tab, 1 TAB PO DAILY 05/04/23 Magnesium Oxide (mg Supplement (Magnesium-Oxide) 400 Mg Tab, 1 TAB PO DAILY 05/04/23 Losartan Potassium (Losartan Potassium) 100 Mg Tab, 1 TAB PO DAILY 05/04/23 Lidocaine (Ztlido) 1.8 % Pad, 1 PATCH TOP DAILY 05/04/23 Chlorthalidone (Chlorthalidone) 25 Mg Tab, 1 TAB PO DAILY 05/04/23 Rizatriptan Benzoate (RIZATRIPTAN BENZOATE) 10 Mg Tab, PO 05/04/23 Diclofenac Sodium (Topical) (Diclofenac Sodium) 1 % Gel, TOP 05/04/23 Diphenhydramine Hcl (Benadryl Allergy) 25 Mg Cap, 1 CAP PO QPM, #30 CAP 1 Refill 05/04/23 Information Source: Patient Mode of Arrival: Ambulatory Past Medical History PAST MEDICAL HISTORY: Asthma, Cancer, ESRD, GERD, HTN, Seizures, Thyroid, TIA Past Medical History (Other): obesity Surgical History: Appendectomy, Hysterectomy, Tubal Ligation BURNISHER AND BUMPER History: No Pertinent BURNISHER AND BUMPER History Family History Family History: Reviewed,noncontributory to illness, Family hx of DM, Family hx of Cancer, Family hx of heart rikki, Family hx of HTN, Family hx of Kidney rikki Social History Smoker: Non-Smoker Alcohol: Denies ETOH Use Drugs: Denies Drug Use Lives In: Home All Other Systems: Reviewed and Negative (Comprehensive systems review obtained and negative except for what is stated in the HPI.) Physical Exam General Appearance: No Apparent Distress, Obese HEENT: Normal ENT Inspection, Pharynx Normal, TMs Normal Neck: Full Range of Motion, Non-Tender, Normal, Normal Inspection Respiratory: Chest Non-Tender, No Accessory Muscle Use, No Respiratory Distress, Other (coarse breathe sounds, bilaterally, that clears upon coughing ) Cardiovascular: No Edema, No JVD, No Murmur, No Gallop, Normal Peripheral Pulses, Regular Rate/Rhythm Breast Exam: Deferred Gastrointestinal: No Organomegaly, Non Tender, No Pulsatile Mass, Normal Bowel Sounds, Soft Genitalia: Deferred Pelvic: Deferred Rectal: Deferred Extremities: No calf tenderness, Normal capillary refill, Normal inspection, Normal range of motion, Non-tender, No pedal edema Musculoskeletal : Apperance: Normal Neurologic: Alert, 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 Was a procedure done?: No Differential Dx Considerations may include: asthma exacerbation, URI, viral syndrome, PNA X-Ray, Labs, Meds, VS Vital Signs Date Time Temp Pulse Resp B/P (MAP) Pulse Ox O2 Delivery O2 Flow Rate FiO2 01/12/25 23:24 84 20 95 Room Air* 0 21 01/12/25 23:24 98.3 86 16 156/90 (112) 95 98.3 01/12/25 23:04 18 98 Room Air* 0 21 01/12/25 22:56 98.8 101 20 133/95 (108) 100 98.8 Current Medications Medications (Trade) Dose Ordered Sig/Ana Route Start Time Stop Time Status Last Admin Albuterol (Ventolin Medneb) 5 mg ONCE ONCE NEB 01/12/25 23:00 01/12/25 23:01 DC 01/12/25 23:04 Dexamethasone Sodium Phosphate (Decadron Injection) 6 mg ONCE ONCE PO 01/12/25 23:00 01/12/25 23:01 DC 01/12/25 23:23 [facility] [id number] [facility] [address] Ph: [phone] DIAGNOSTIC IMAGING Diagnostic Imaging Report : [id number] Signed PATIENT: CIARA ESQUEDA ACCT: [id number] UNIT: [id number] : 1980 LOC: ER ROOM / BED: / AGE / SEX: 44 / F ADM STATUS: REG ER SERVICE 47 ORDERING PHYSICIAN: JENN HENRY MD PROCEDURE(s): CXRP - CHEST PORTABLE REASON: sob ORDER NUMBER(s): [id number], ACCESSION NUMBER(s): [id number] CHEST RADIOGRAPH Indication: sob Technique: Single frontal view of the chest was obtained Comparison: XY CHEST PORTABLE on DOS: 10/08/24, XY CHEST PORTABLE on DOS: 08/03/23, XY CHEST PORTABLE on DOS: 05/03/23, XY CHEST PORTABLE on DOS: 02/06/23, EKG on DOS: 08/08/22 FINDINGS: The cardiac silhouette is borderline enlarged. The lungs demonstrate patchy airspace opacities. The pulmonary vasculature is prominent. Small left pleural effusion. There is no pneumothorax. IMPRESSION: 1. Pulmonary vascular congestion and bilateral patchy airspace opacities. 2. Small left pleural effusion. ATED BY: LENORA CHAPPELL MD DICTATED DATE/TIME: 01/12/252319 SIGNED BY: LENORA CHAPPELL MD SIGNED DATE/TIME: 01/12/252319 CC: Time of 1ST Reevaluation: 23:20 Reevaluation 1ST: Unchanged Time of 2ND Reevaluation: 01:36 Reevaluation 2ND: Improved Patient Education/Counseling: Diagnosis, Treatment Family Education/Counseling: No Family Present Additional Information Previous visit documents reviewed: October 08, 2024 encounter for chest pain The following tests were ordered, and results were reviewed by me: CXR Additional Information was gathered from interviewing the following independent historians: n/a I reviewed and agreed with the following test results read by other providers: CXR I discussed treatment and results with medical personnel and: Patient Departure 1 Departure Time of Disposition: 01:36 Impression: Primary Impression: Asthma exacerbation Additional Impression: Bronchitis Disposition: HOME / SELF CARE / HOMELESS Condition: Good e-Prescriptions Prednisone (Prednisone) 20 Mg Tab 20 MG PO DAILY for 5 Days, #5 TAB Prov: JENN HENRY MD 01/13/25 Dexamethasone (Decadron) 4 Mg Tb 4 TAB PO DAILY for 3 Days, #12 TAB Prov: JENN HENRY MD 01/13/25 Ipratropium-Albuterol (COMBIVENT RESPIMAT) Respimat Aer 2 PUFF IN Q4HP PRN, #1 AER Prov: JENN HENRY MD 01/13/25 Azithromycin (Zithromax Z-Justin) 250 Mg Tab 250 MG PO DAILY for 5 Days, #5 TAB Prov: JENN HENRY MD 01/13/25 Discharged With: Self Critical Care Note Critical Care Time?: No Stability Stability form required: No Heart Score Heart Score: Heart Score Response (Comments) Value History N/A 0 EKG N/A 0 Age N/A 0 Risk Factors N/A 0 Troponin N/A 0 Total 0 I personally scribed for JENN HENRY MD ([email or web address]) on 01/13/25 at 01:28. Electronically submitted by Hussein Salazar ([email or web address]). JENN HENRY MD Jan 13, 2025 01:28
[2025-01-13] MEDS ORDERED: PRED20TA2 PO (01:38)
[2025-01-13] MEDS ORDERED: DEX4T PO (01:38)
[2025-01-13] MEDS ORDERED: IPRAAER6 IN (01:38)
[2025-01-13] MEDS ORDERED: AZITTAB PO (01:38)
[2025-01-13 02:10] VITALS: BP 133/95; PULSE 101; RESP 20; TEMP 98.7; O2SAT 100
[2025-01-13] MEDS: cefTRIAXone SOD 1,000 MG VL IM ONE (02:14)
== END 2025-01-13 02:24 | disposition home or self-care (01) ==
LOC: ER 22:18
DX: J45.901 Unspecified asthma with (acute) exacerbation (principal); I12.0 Hypertensive chronic kidney disease with stage 5 chronic kidney disease or end stage renal disease; N18.6 End stage renal disease; K21.9 Gastro-esophageal reflux disease without esophagitis; E66.9 Obesity, unspecified; Z86.69 Personal history of other diseases of the nervous system and sense organs; Z86.73 Personal history of transient ischemic attack (TIA), and cerebral infarction without residual deficits; Z90.49 Acquired absence of other specified parts of digestive tract; Z90.710 Acquired absence of both cervix and uterus; Z98.51 Tubal ligation status; Z79.01 Long term (current) use of anticoagulants; Z79.899 Other long term (current) drug therapy; Z88.0 Allergy status to penicillin; Z88.1 Allergy status to other antibiotic agents; Z88.5 Allergy status to narcotic agent; Z88.6 Allergy status to analgesic agent; Z88.8 Allergy status to other drugs, medicaments and biological substances
CPT/HCPCS: 71045; 94640; 96372; 99283; J0696; J1100

== ENCOUNTER 2025-02-05 23:29 | Emergency (ER) | payer MEDICAID ==
[~2025-02-05] VITALS: Ht 175.3 cm; Wt 126.6 kg
[~2025-02-05 23:29] MED LIST changes: +AZITTAB PO; +DEX4T PO; +IPRAAER6 IN; +PRED20TA2 PO
[2025-02-05 23:36] VITALS: BP 154/100; RESP 17; TEMP 98.5; O2SAT 97
[2025-02-05 23:38] VITALS: PULSE 101
[2025-02-05] MEDS ORDERED: METOPROLOL TARTRATE 1MG/1ML-5ML VIAL IV ONE (23:45)
[2025-02-05] MEDS ORDERED: SODIUM CHLORIDE 0.9% 1,000 ML IVB ONE (23:45)
--- NOTE | 2025-02-05 23:49 | ED.PDOC ---
HPI Comments 44 year old female presents to the ED with a chief complaint of chest pain onset today. Patient began experiencing chest pain, radiates to back. Describes the pain as a tightness and crushing sensation. Checked HR at home was 132, decided to come to ED. Upon ED arrival HR was 103. PMHx A-fib,HTN, ESRD, seizure, asthma, thyroid, TIA, cancer. Denies headache, dizziness, shortness of breath, nausea, vomiting, diarrhea, abdominal pain, fever, chills, cough, congestion. No other symptoms or modifying factors present at this time. Chief Complaint: Chest Pain Time Seen by MD: 23:42 Primary Care Provider: TICO INIGUEZ Reviewed Notes: Medications, Allergies Allergies: Coded Allergies: Acetaminophen (Verified Allergy, Unknown, 09/06/15) Aspirin (Verified Allergy, Unknown, 11/21/19) Codeine (Verified Allergy, Unknown, 11/21/19) Hydrocodone (Verified Allergy, Unknown, 09/06/15) Hydromorphone (Verified Allergy, Unknown, 11/21/19) Levothyroxine (Verified Allergy, Unknown, 09/06/15) Lisinopril (Verified Allergy, Unknown, 11/21/19) Methadone (Verified Allergy, Unknown, 11/21/19) Morphine (Verified Allergy, Unknown, 09/06/15) Mupirocin (Verified Allergy, Unknown, 11/21/19) Nitrofurantoin (Verified Allergy, Unknown, 09/06/15) Nitroglycerin (Verified Allergy, Unknown, 11/21/19) Penicillins (Verified Allergy, Unknown, 11/21/19) Tramadol (Verified Allergy, Unknown, 11/21/19) Home Meds Active Scripts Prednisone (Prednisone) 20 Mg Tab, 20 MG PO DAILY for 5 Days, #5 TAB Prov:JENN HENRY MD 01/13/25 Dexamethasone (Decadron) 4 Mg Tb, 4 TAB PO DAILY for 3 Days, #12 TAB Prov:JENN HENRY MD 01/13/25 Ipratropium-Albuterol (COMBIVENT RESPIMAT) Respimat Aer, 2 PUFF IN Q4HP PRN, #1 AER Prov:JENN HENRY MD 01/13/25 Azithromycin (Zithromax Z-Justin) 250 Mg Tab, 250 MG PO DAILY for 5 Days, #5 TAB Prov:JENN HENRY MD 01/13/25 Ranolazine (Ranolazine ER) 500 Mg Tab, 500 MG PO BID, #60 TAB 3 Refills Prov:RICKIE MCNALLY MD 05/05/23 Amiodarone Hcl (Amiodarone Hcl) 200 Mg Tab, 200 MG PO BID, #60 TAB 5 Refills Prov:RICKIE MCNALLY MD 05/05/23 Metoprolol Tartrate (Lopressor) 25 Mg Tb, 25 MG PO BID, #60 TAB 5 Refills Prov:RICKIE MCNALLY MD 05/05/23 Apixaban Base (ELIQUIS) 5 Mg Tab, 5 MG PO BID, #60 TAB 5 Refills Prov:RICKIE MCNALLY MD 05/05/23 Reported Medications Dupilumab (Dupixent) 300 Mg/2 Ml Inj, SC 05/04/23 Budesonide-Formoterol Fumarate (Budesonide/Formoterol Fum 80-4.5 Mcg/Act) 1 Aer Aer, PO 05/04/23 Amitriptyline Hcl (Amitriptyline Hcl) 25 Mg Tab, 2 TAB PO DAILY 05/04/23 Atorvastatin Calcium (ATORVASTATIN CALCIUM) 40 Mg Tab, 1 TAB PO DAILY 05/04/23 Semaglutide (Wegovy) 2.4 Mg/0.75 Ml Inj, SC 05/04/23 Montelukast Sodium (MONTELUKAST SODIUM) 4 Mg Chw, 1 TAB PO DAILY 05/04/23 Albuterol Sulfate (Albuterol Sulfate Hfa) 108 Mcg/Act Aer, 2 PUFF INH Q4HPRN PRN for wheezing 05/04/23 Pantoprazole Sodium Sesquihydr (Pantoprazole Sodium Dr) 40 Mg Tab, 1 TAB PO DAILY 05/04/23 Nifedipine (Nifedipine Er) 60 Mg Tab, 1 TAB PO DAILY 05/04/23 Magnesium Oxide (mg Supplement (Magnesium-Oxide) 400 Mg Tab, 1 TAB PO DAILY 05/04/23 Losartan Potassium (Losartan Potassium) 100 Mg Tab, 1 TAB PO DAILY 05/04/23 Lidocaine (Ztlido) 1.8 % Pad, 1 PATCH TOP DAILY 05/04/23 Chlorthalidone (Chlorthalidone) 25 Mg Tab, 1 TAB PO DAILY 05/04/23 Rizatriptan Benzoate (RIZATRIPTAN BENZOATE) 10 Mg Tab, PO 05/04/23 Diclofenac Sodium (Topical) (Diclofenac Sodium) 1 % Gel, TOP 05/04/23 Diphenhydramine Hcl (Benadryl Allergy) 25 Mg Cap, 1 CAP PO QPM, #30 CAP 1 Refill 05/04/23 Information Source: Patient Mode of Arrival: Ambulatory Severity: Moderate Timing: Hours Duration: Since onset Prehospital treatment: None Location: Chest (L) Radiation: Back Quality: Crushing, Tightness Onset: At Rest Cardiac Risk Factors: HTN PE Risk Factors: None History of: Similar pain in past Modifying Factors: Nothing Past Medical History PAST MEDICAL HISTORY: AFIB, Asthma, Cancer, ESRD, GERD, HTN, Seizures, Thyroid, TIA Surgical History: Appendectomy, Hysterectomy, Tubal Ligation TENNIS DESK TEAM MEMBER 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: No Pertinent TENNIS DESK TEAM 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 History Family History Family History: Reviewed,noncontributory to illness, Family hx of DM, Family hx of Cancer, Family hx of heart rikki, Family hx of HTN, Family hx of Kidney rikki Social History Smoker: Non-Smoker Alcohol: Denies ETOH Use Drugs: Denies Drug Use Lives In: Home Constitutional: denies: chills, diaphoresis, fatigue, fever, malaise, sweats, weakness, others EENTM: denies: blurred vision, double vision, ear bleeding, ear discharge, ear drainage, ear pain, ear ringing, eye pain, eye redness, hearing loss, mouth pain, mouth swelling, nasal discharge, nose bleeding, nose congestion, nose pain, photophobia, tearing, throat pain, throat swelling, voice changes, others Respiratory: denies: cough, hemoptysis, orthopnea, SOB at rest, shortness of breath, SOB with excertion, stridor, wheezing, others Cardiovascular: reports: chest pain; denies: dizzy spells, diaphoresis, Dyspnea on exertion, edema, irregular heart beat, left arm pain, lightheadedness, palpitations, PND, syncope, others Gastrointestinal: denies: abdomen distended, abdominal pain, blood streaked bowels, constipated, diarrhea, dysphagia, difficulty swallowing, hematemesis, melena, nausea, poor appetite, poor fluid intake, rectal bleeding, rectal pain, vomiting, others Genitourinary: denies: abnormal vagina bleeding, burning, dyspareunia, dysuria, flank pain, frequency, hematuria, incontinence, pain, , vagina discharge, urgency, others Neurological: denies: dizziness, fainting, headache, left sided numbness, left sided weakness, numbness, paresthesia, pre-existing deficit, right sided numbness, right sided weakness, seizure, speech problems, tingling, tremors, weakness, others Musculoskeletal: denies: back pain, gout, joint pain, joint swelling, muscle pain, muscle stiffness, neck pain, others Integumetry: denies: bruises, change in color, change in hair/nails, dryness, laceration, lesions, lumps, rash, wounds, others Allergic/Immunocompromised: denies: Difficulty Healing, Frequent Infections, Hives, Itching, others Hematologic/Lymphatic: denies: anemia, blood clots, easy bleeding, easy bruising, swollen glands, others Endocrine: denies: excessive hunger, excessive sweating, excessive thirst, excessive urination, flushing, intolerance to cold, intolerance to heat, unexplained weight gain, unexplained weight loss, others Psychiatric: denies: anxiety, bipolar disorder, depression, hopeless, panic disorder, schizophrenia, sleepless, suicidal, others All Other Systems: Reviewed and Negative Physical Exam General Appearance: No Apparent Distress, Normal HEENT: Normal ENT Inspection, Pharynx Normal, TMs Normal Neck: Full Range of Motion, Non-Tender, Normal, Normal Inspection Respiratory: Chest Non-Tender, Lungs Clear, No Accessory Muscle Use, No Respiratory Distress, Normal Breath Sounds Cardiovascular: No Edema, No JVD, No Murmur, No Gallop, Normal Peripheral Pulses, Regular Rate/Rhythm Breast Exam: Deferred Gastrointestinal: No Organomegaly, Non Tender, No Pulsatile Mass, Normal Bowel Sounds, Soft Genitalia: Deferred Pelvic: Deferred Rectal: Deferred Extremities: No calf tenderness, Normal capillary refill, Normal inspection, Normal range of motion, Non-tender, No pedal edema Musculoskeletal : Apperance: Normal Neurologic: Alert, environmental health technologist II-XII nml as Tested, No Motor Deficits, Normal Affect, Normal Mood, No Sensory Deficits Cerebellar Function: Normal Reflexes: Normal Skin: Dry, Normal Color, Warm Lymphatic: No Adenopathy Was a procedure done? Was a procedure done?: No CP Differential Dx Differential Diagnosis: A-fib, A-Flutter, Angina, Heart Failure, KS, PAC's, Ventricular Dysrhythmia, V-Fib, V-Tach, Other X-Ray, Labs, Meds, VS Vital Signs Date Time Temp Pulse Resp B/P (MAP) Pulse Ox O2 Delivery O2 Flow Rate FiO2 02/05/25 23:38 101 02/05/25 23:36 98.5 103 17 154/100 (118) 97 98.5 Lab Test 02/05/25 23:33 Range/Units White Blood Count 7.6 4.4-10.8 10^3/uL Red Blood Count 4.51 4.0-5.20 10^6/uL Hemoglobin 14.0 12.2-16.2 g/dL Hematocrit 41.0 36.0-46.0 % Mean Corpuscular Volume 90.8 80.0-100.0 fL Mean Corpuscular Hemoglobin 31.1 28.0-32.0 pg Mean Corpuscular Hemoglobin Concent 34.2 32.0-36.0 g/dL Red Cell Distribution Width 14.3 11.8-14.3 % Platelet Count 283 140-450 10^3/uL Mean Platelet Volume 7.5 6.9-10.8 fL Neutrophils (%) (Auto) 57.4 37.0-80.0 % Lymphocytes (%) (Auto) 34.4 10.0-50.0 % Monocytes (%) (Auto) 4.8 0.0-12.0 % Eosinophils (%) (Auto) 2.6 0.0-7.0 % Basophils (%) (Auto) 0.8 0.0-2.0 % Neutrophils # (Auto) 4.3 1.6-8.6 10 ^3/uL Lymphocytes # (Auto) 2.6 0.4-5.4 10 ^3/uL Monocytes # (Auto) 0.4 0-1.3 10 ^3/uL Eosinophils # (Auto) 0.2 0-0.8 10 ^3/uL Basophils # (Auto) 0.1 0-0.2 10 ^3/uL Nucleated Red Blood Cells 0.2 % Prothrombin Time 10.3 9.3-11.8 sec Prothrombin Time INR 0.97 0.9-1.15 Activated Partial Thromboplast Time 25.6 24.5-34.5 SEC D-Dimer, Quantitative 0.31 0.0-0.49 mg/L FEU Sodium Level 141 136-145 mmol/L Potassium Level 3.8 3.5-5.1 mmol/L Chloride Level 106 98-107 mmol/L Carbon Dioxide Level 28 20-31 mmol/L Anion Gap 7 5-15 Blood Urea Nitrogen 12 9-23 mg/dL Creatinine 1.16 H 0.550-1.02 mg/dL Glomerular Filtration Rate Calc 59 >90 mL/min BUN/Creatinine Ratio 10.3 10.0-20.0 Serum Glucose 126 H 74-106 mg/dL Calcium Level 9.9 8.7-10.4 mg/dL Total Bilirubin 0.5 0.2-1.0 mg/dL Aspartate Amino Transferase (AST) 21 13-40 U/L Alanine Aminotransferase (ALT) 21 7-40 U/L Alkaline Phosphatase 95 46-116 U/L Troponin I High Sensitivity < 3 L </=34 ng/L Total Protein 7.1 5.7-8.2 g/dL Albumin 4.3 3.2-4.8 g/dL Beta HCG, Quantitative 1.1 L 1.5-4.2 mIU/mL Time of 1ST Reevaluation: 00:12 Reevaluation 1ST: Unchanged Patient Education/Counseling: Diagnosis, Treatment, Prognosis Family Education/Counseling: No Family Present Departure 1 Departure Time of Disposition: 01:30 Impression: Primary Impression: Palpitations Additional Impression: Acute chest pain Disposition: 01 HOME / SELF CARE / HOMELESS Condition: Stable Discharged With: Self Critical Care Note Critical Care Time?: No Stability Stability form required: No Heart Score Heart Score: Heart Score Response (Comments) Value History Slightly Suspicious 0 EKG Normal 0 Age 45-64 1 Risk Factors 1 or 2 risk factors 1 Troponin Normal limit 0 Total 2 I personally scribed for ANU FELDMAN MD ([email or web address]) on 02/05/25 at 23:49. Electronically submitted by Madisyn Kingsley ([email or web address]). ANU FELDMAN MD Feb 05, 2025 23:49
[2025-02-05 23:56] LABS: Basophils # (auto) 0.1 10 ^3/uL (0-0.2); Basophils % (auto) 0.8 % (0.0-2.0); Eosinophils # (auto) 0.2 10 ^3/uL (0-0.8); Eosinophils % (auto) 2.6 % (0.0-7.0); Lymphocytes # (auto) 2.6 10 ^3/uL (0.4-5.4); Lymphocytes % (auto) 34.4 % (10.0-50.0); Mean Corpuscular Hemoglobin 31.1 pg (28.0-32.0); Mean Corpuscular Hgb Conc. 34.2 g/dL (32.0-36.0); Mean Corpuscular Volume 90.8 fL (80.0-100.0); Monocytes # (auto) 0.4 10 ^3/uL (0-1.3); Monocytes % (auto) 4.8 % (0.0-12.0); Neutrophils # (auto) 4.3 10 ^3/uL (1.6-8.6); Neutrophils % (auto) 57.4 % (37.0-80.0); Nucleated Red Blood Cells % 0.2 %; Platelet Count (auto) 283 10^3/uL (140-450); Red Blood Cells 4.51 10^6/uL (4.0-5.20); Red Cell Distribution Width 14.3 % (11.8-14.3); White Blood Cell 7.6 10^3/uL (4.4-10.8)
[2025-02-06 00:12] LABS: INR 0.97 (0.9-1.15); Partial Thromboplastin Time 25.6 SEC (24.5-34.5); Prothrombin Time 10.3 sec (9.3-11.8)
[2025-02-06 00:13] LABS: Alanine Aminotransferase 21 U/L (7-40); Alkaline Phosphatase 95 U/L (46-116); Anion Gap 7 (5-15); BUN/Creatinine Ratio 10.3 (10.0-20.0); Blood Urea Nitrogen 12 mg/dL (9-23); Calcium 9.9 mg/dL (8.7-10.4); Carbon Dioxide 28 mmol/L (20-31); Chloride 106 mmol/L (98-107); Potassium 3.8 mmol/L (3.5-5.1); Sodium 141 mmol/L (136-145); Total Protein 7.1 g/dL (5.7-8.2)
[2025-02-06 00:14] LABS: Albumin 4.3 g/dL (3.2-4.8); Aspartate Aminotransferase 21 U/L (13-40); Bilirubin, Total 0.5 mg/dL (0.2-1.0); Glucose 126 mg/dL (74-106)
--- NOTE | 2025-02-07 08:47 | ECG ---
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
== END 2025-02-06 01:42 | disposition left against medical advice (07) ==
LOC: ER 23:29
DX: R07.9 Chest pain, unspecified (principal); R10.2 Pelvic and perineal pain; R00.2 Palpitations; I48.91 Unspecified atrial fibrillation; J45.909 Unspecified asthma, uncomplicated; I12.0 Hypertensive chronic kidney disease with stage 5 chronic kidney disease or end stage renal disease; N18.6 End stage renal disease; Z86.73 Personal history of transient ischemic attack (TIA), and cerebral infarction without residual deficits; K21.9 Gastro-esophageal reflux disease without esophagitis; Z79.01 Long term (current) use of anticoagulants; Z79.52 Long term (current) use of systemic steroids; Z79.899 Other long term (current) drug therapy; Z90.49 Acquired absence of other specified parts of digestive tract; Z90.710 Acquired absence of both cervix and uterus; Z98.51 Tubal ligation status; Z88.0 Allergy status to penicillin; Z88.1 Allergy status to other antibiotic agents; Z88.5 Allergy status to narcotic agent; Z88.6 Allergy status to analgesic agent; Z88.8 Allergy status to other drugs, medicaments and biological substances
CPT/HCPCS: 36415; 80053; 84484; 84702; 85025; 85379; 85610; 85730; 93005

== ENCOUNTER 2025-04-15 13:45 | Emergency (ER) | payer MEDICAID ==
[~2025-04-15] VITALS: Ht 175.3 cm; Wt 125.1 kg
[2025-04-15] MEDS: SODIUM CHLORIDE 0.9% 1,000 ML IV ONE (14:30)
--- NOTE | 2025-04-15 14:34 | ED.PDOC ---
Eye-HPI HPI Comments 44 year old female with a past medical history of ESRD, colon cancer, hy pertension, GERD, seizure, thyroid disease, TIA, asthma presents to the ED with a chief complaint of sore throat onset today (04/15/25). Patient woke up today experiencing sore throat, bilateral ear pain, shortness of breath, fatigue, dizziness, nausea, body aches, fever, chills. Upon ED arrival, temperature was 102.7F. No other symptoms or modifying factors present at this time. Denies chest pain Denies cough, congestion Denies blurry vision Denies sick/ill contact Denies recent travel Chief Complaint: Sore Throat Time Seen by MD: 14:25 Primary Care Provider: TICO INIGUEZ Reviewed Notes: Nurses Notes, Medications, Allergies Allergies: Coded Allergies: Acetaminophen (Verified Allergy, Unknown, 09/06/15) Aspirin (Verified Allergy, Unknown, 11/21/19) Codeine (Verified Allergy, Unknown, 11/21/19) Hydrocodone (Verified Allergy, Unknown, 09/06/15) Hydromorphone (Verified Allergy, Unknown, 11/21/19) Levothyroxine (Verified Allergy, Unknown, 09/06/15) Lisinopril (Verified Allergy, Unknown, 11/21/19) Methadone (Verified Allergy, Unknown, 11/21/19) Morphine (Verified Allergy, Unknown, 09/06/15) Mupirocin (Verified Allergy, Unknown, 11/21/19) Nitrofurantoin (Verified Allergy, Unknown, 09/06/15) Nitroglycerin (Verified Allergy, Unknown, 11/21/19) Penicillins (Verified Allergy, Unknown, 11/21/19) Tramadol (Verified Allergy, Unknown, 11/21/19) Home Meds Active Scripts Benzonatate (Benzonatate) 100 Mg Cap, 1 CAP PO TID for 10 Days, #30 CAP 0 Refills Prov:REGINALD WHITAKER NP 04/15/25 Ibuprofen Micronized (Ibuprofen) 600 Mg Tab, 600 MG PO TIDWM for 10 Days, #30 TA B 0 Refills Prov:REGINALD WHITAKER CHIEF UNDERWRITER 04/15/25 Prednisone (Prednisone) 20 Mg Tab, 20 MG PO DAILY for 5 Days, #5 TAB Prov:JENN HENRY MD 01/13/25 Dexamethasone (Decadron) 4 Mg Tb, 4 TAB PO DAILY for 3 Days, #12 TAB Prov:JENN HENRY MD 01/13/25 Ipratropium-Albuterol (COMBIVENT RESPIMAT) Respimat Aer, 2 PUFF IN Q4HP PRN, #1 AER Prov:JENN HENRY MD 01/13/25 Azithromycin (Zithromax Z-Justin) 250 Mg Tab, 250 MG PO DAILY for 5 Days, #5 TAB Prov:JENN HENRY MD 01/13/25 Ranolazine (Ranolazine ER) 500 Mg Tab, 500 MG PO BID, #60 TAB 3 Refills Prov:RICKIE MCNALLY MD 05/05/23 Amiodarone Hcl (Amiodarone Hcl) 200 Mg Tab, 200 MG PO BID, #60 TAB 5 Refills Prov:RICKIE MCNALLY MD 05/05/23 Metoprolol Tartrate (Lopressor) 25 Mg Tb, 25 MG PO BID, #60 TAB 5 Refills Prov:RICKIE MCNALLY MD 05/05/23 Apixaban Base (ELIQUIS) 5 Mg Tab, 5 MG PO BID, #60 TAB 5 Refills Prov:RICKIE MCNALLY MD 05/05/23 Reported Medications Dupilumab (Dupixent) 300 Mg/2 Ml Inj, SC 05/04/23 Budesonide-Formoterol Fumarate (Budesonide/Formoterol Fum 80-4.5 Mcg/Act) 1 Aer Aer, PO 05/04/23 Amitriptyline Hcl (Amitriptyline Hcl) 25 Mg Tab, 2 TAB PO DAILY 05/04/23 Atorvastatin Calcium (ATORVASTATIN CALCIUM) 40 Mg Tab, 1 TAB PO DAILY 05/04/23 Semaglutide (Wegovy) 2.4 Mg/0.75 Ml Inj, SC 05/04/23 Montelukast Sodium (MONTELUKAST SODIUM) 4 Mg Chw, 1 TAB PO DAILY 05/04/23 Albuterol Sulfate (Albuterol Sulfate Hfa) 108 Mcg/Act Aer, 2 PUFF INH Q4HPRN PRN for wheezing 05/04/23 Pantoprazole Sodium Sesquihydr (Pantoprazole Sodium Dr) 40 Mg Tab, 1 TAB PO DAILY 05/04/23 Nifedipine (Nifedipine Er) 60 Mg Tab, 1 TAB PO DAILY 05/04/23 Magnesium Oxide (mg Supplement (Magnesium-Oxide) 400 Mg Tab, 1 TAB PO DAILY 05/04/23 Losartan Potassium (Losartan Potassium) 100 Mg Tab, 1 TAB PO DAILY 05/04/23 Lidocaine (Ztlido) 1.8 % Pad, 1 PATCH TOP DAILY 05/04/23 Chlorthalidone (Chlorthalidone) 25 Mg Tab, 1 TAB PO DAILY 05/04/23 Rizatriptan Benzoate (RIZATRIPTAN BENZOATE) 10 Mg Tab, PO 05/04/23 Diclofenac Sodium (Topical) (Diclofenac Sodium) 1 % Gel, TOP 05/04/23 Diphenhydramine Hcl (Benadryl Allergy) 25 Mg Cap, 1 CAP PO QPM, #30 CAP 1 Refill 05/04/23 Information Source: Patient Mode of Arrival: Ambulatory Timing: Hours Duration: Since onset Throat Exposed to: None History of: None Associated signs and symptoms: Fever, Sore Throat Past Medical History PAST MEDICAL HISTORY: AFIB, Asthma, Cancer, ESRD, GERD, HTN, Seizures, Thyroid, TIA Surgical History: Appendectomy, Hysterectomy, Tubal Ligation CATALOGUE COMPILER History: No Pertinent CATALOGUE COMPILER History Family History Family History: Reviewed,noncontributory to illness, Family hx of DM, Family hx of Cancer, Family hx of heart rikki, Family hx of HTN, Family hx of Kidney rikki Social History Smoker: Non-Smoker Alcohol: Denies ETOH Use Drugs: Denies Drug Use Lives In: Home All Other Systems: Reviewed and Negative (as per HPI) Physical Exam General Appearance: Normal HEENT: Normal ENT Inspection, Pharynx Normal, TMs Normal Neck: Full Range of Motion, Non-Tender, Normal, Normal Inspection Respiratory: Chest Non-Tender, Lungs Clear, No Accessory Muscle Use, No Respiratory Distress, Normal Breath Sounds Cardiovascular: No Edema, No JVD, No Murmur, No Gallop, Normal Peripheral Pulses, Regular Rate/Rhythm Breast Exam: Deferred Gastrointestinal: No Organomegaly, Non Tender, No Pulsatile Mass, Normal Bowel Sounds, Soft Genitalia: Deferred Pelvic: Deferred Rectal: Deferred Extremities: No calf tenderness, Normal capillary refill, Normal inspection, Normal range of motion, Non-tender, No pedal edema Musculoskeletal : Apperance: Normal Neurologic: Alert, drivers' cash clerk II-XII nml as Tested, No Motor Deficits, Normal Affect, Normal Mood, No Sensory Deficits Cerebellar Function: Normal Reflexes: Normal Skin: Dry, Normal Color, Warm Lymphatic: No Adenopathy Was a procedure done? Was a procedure done?: No EENT DIFF Eye: Other Sore Throat: Pharyngitis, Streptococcal, Viral Pharyngitis, URI, Other X-Ray, Labs, Meds, VS Vital Signs Date Time Temp Pulse Resp B/P (MAP) Pulse Ox O2 Delivery O2 Flow Rate FiO2 04/15/25 17:06 99.7 04/15/25 17:04 99.7 70 20 139/74 (95) 96 99.7 04/15/25 16:00 101.2 102 20 140/78 (98) 96 101.2 04/15/25 14:59 102.7 04/15/25 14:00 114 19 97 Room Air 04/15/25 14:00 102.7 114 19 138/77 (97) 97 102.7 04/15/25 14:00 102.7 114 19 138/77 (97) 97 102.7 Lab Test 04/15/25 14:18 04/15/25 14:11 Range/Units White Blood Count 7.5 4.4-10.8 10^3/uL Red Blood Count 4.25 4.0-5.20 10^6/uL Hemoglobin 13.2 12.2-16.2 g/dL Hematocrit 38.5 36.0-46.0 % Mean Corpuscular Volume 90.6 80.0-100.0 fL Mean Corpuscular Hemoglobin 31.0 28.0-32.0 pg Mean Corpuscular Hemoglobin Concent 34.2 32.0-36.0 g/dL Red Cell Distribution Width 14.0 11.8-14.3 % Platelet Count 277 140-450 10^3/uL Mean Platelet Volume 7.6 6.9-10.8 fL Neutrophils (%) (Auto) 82.4 H 37.0-80.0 % Lymphocytes (%) (Auto) 7.6 L 10.0-50.0 % Monocytes (%) (Auto) 8.2 0.0-12.0 % Eosinophils (%) (Auto) 1.5 0.0-7.0 % Basophils (%) (Auto) 0.3 0.0-2.0 % Neutrophils # (Auto) 6.2 1.6-8.6 10 ^3/uL Lymphocytes # (Auto) 0.6 0.4-5.4 10 ^3/uL Monocytes # (Auto) 0.6 0-1.3 10 ^3/uL Eosinophils # (Auto) 0.1 0-0.8 10 ^3/uL Basophils # (Auto) 0 0-0.2 10 ^3/uL Nucleated Red Blood Cells 0.2 % Sodium Level 141 136-145 mmol/L Potassium Level 3.6 3.5-5.1 mmol/L Chloride Level 107 98-107 mmol/L Carbon Dioxide Level 24 20-31 mmol/L Anion Gap 10 5-15 Blood Urea Nitrogen 13 9-23 mg/dL Creatinine 1.24 H 0.550-1.02 mg/dL Glomerular Filtration Rate Calc 54 >90 mL/min BUN/Creatinine Ratio 10.5 10.0-20.0 Serum Glucose 94 74-106 mg/dL Calcium Level 10.2 8.7-10.4 mg/dL Total Bilirubin 0.9 0.2-1.0 mg/dL Aspartate Amino Transferase (AST) 34 13-40 U/L Alanine Aminotransferase (ALT) 34 7-40 U/L Alkaline Phosphatase 85 46-116 U/L Total Protein 7.5 5.7-8.2 g/dL Albumin 4.6 3.2-4.8 g/dL Urine Color Light-yellow Yellow Urine Clarity Turbid H Clear Urine pH 5.5 5.0-9.0 Urine Specific [place] 1.024 1.001-1.035 Urine Protein Negative Negative Urine Ketones Negative Negative Urine Blood Negative Negative /uL Urine Nitrite Negative Negative Urine Bilirubin Negative Negative Urine Urobilinogen Normal Negative mg/dL Urine Leukocyte Esterase Negative Negative /uL Urine RBC 1 0 - 4 /hpf Urine Microscopic WBC < 1 0-5 /HPF Urine Squamous Epithelial Cells Mod <5 /hpf Urine Bacteria None seen None Seen /hpf Urine Glucose Normal Normal mg/dL Influenza Type A Antigen Negative Negative Influenza Type B Antigen Negative Negative SARS-CoV-2 Antigen (Rapid) Positive NEGATIVE Group A Streptococcus Rapid Negative Current Medications Medications (Trade) Dose Ordered Sig/Ana Route Start Time Stop Time Status Last Admin Sodium Chloride 1,000 ml @ 1,000 mls/hr Q1H ONCE IV 04/15/25 14:30 04/15/25 15:29 DC 04/15/25 17:10 Ibuprofen (Motrin Tablet) 800 mg ONCE ONCE PO 04/15/25 14:30 04/15/25 14:31 DC 04/15/25 14:59 Dexamethasone Sodium Phosphate (Decadron Injection) 16 mg ONCE ONCE IM 04/15/25 14:30 04/15/25 16:14 DC 04/15/25 17:43 X-Ray, Labs, Meds, VS Comment 44 year old female with a past medical history of ESRD, colon cancer, hypertension, GERD, seizure, thyroid disease, TIA, asthma presents to the ED wit h a chief complaint of sore throat onset today (04/15/25). Patient arrives alert and oriented, ABC's intact, afebrile, vital signs stable, saturating well in room air Peripheral IV insertion+ labs were ordered. CBC was ordered to exclude anemia, blood loss, or infection. CMP was ordered to exclude electrolyte abnormalities, renal failure, dehydration, hyperglycemia and/or liver enzyme abnormalities. Urinalysis was ordered to rule out UTI or hematuria. Rapid strep throat Rapid influenza A/B COVID There is no evidence to suggest presence of vascular process such DVT or arterial ischemia, pulmonary emboli. No respiratory distress, no supplemental O2. Given the history and physical and workup, the patient is low risk for PE, PTX, ACS, or pulmonary edema. The patient is currently asymptomatic. She is allergic to Tylenol therefore [id number] ibuprofen was recommended for myalgia and her fevers The patient is tolerating PO without difficulty and ambulating with a steady gait. Strict RTED precautions have been given, including increased shortness of breath, CP, vomiting or abdominal pain. Patient instructed to self isolate for 10 days. The patient was discharged home in stable condition and given recommendations for PMD follow-up in 1 day. All questions have been answered. Patient is positive for coronavirus. Patient was given: NS 0.9% 1L IV, Dexamethasone 16 mg IM, Ibuprofen 800 mg PO. Tolerated medications with no adverse reaction. Additional MDM Review of External, Non-ED records: External records reviewed. Discussion with independent historian (EMS, family) history obtained from the patient/parents (if applicable) at bedside Chronic conditions affecting care: ESRD, HTN, colon cancer, GERD, seizure, thyroid disease, TIA, asthma Social determinants of health affecting care: None Consideration of admission (observation or admission): I considered escalation of care to admission for this patient, however given the reassuring workup, the patient is safe for outpatient management. Discussion with the Radiology: No Tests considered but not performed: Prescription medication considered but not given: Time of 1ST Reevaluation: 14:55 Reevaluation 1ST: Improved Patient Education/Counseling: Diagnosis, Treatment Family Education/Counseling: No Family Present SEPSIS Sepsis Screen Date sepsis recognized/suspect: Apr 15, 2025 Time Sepsis recognized/suspect: 1400 Recent Procedure: No On Antibiotic Therapy: No Respiratory Rate >20: No Heart Rate >90: Yes Temp<36 C (96.8 F) or >38.3 C: Yes SBP <90 or MAP <65 mmHG: No New Acute Mental Status Change: No Is the patient on CPAP, BIPAP,: No Physician Orders Heplock Iv (04/15/25 ) Vital Signs Date Time Temp Pulse Resp B/P (MAP) Pulse Ox O2 Delivery O2 Flow Rate FiO2 04/15/25 17:06 99.7 04/15/25 17:04 99.7 70 20 139/74 (95) 96 99.7 04/15/25 16:00 101.2 102 20 140/78 (98) 96 101.2 04/15/25 14:59 102.7 04/15/25 14:00 114 19 97 Room Air 04/15/25 14:00 102.7 114 19 138/77 (97) 97 102.7 04/15/25 14:00 102.7 114 19 138/77 (97) 97 102.7 Laboratory Tests Test 04/15/25 14:18 White Blood Count 7.5 10^3/uL (4.4-10.8) Departure 1 Departure Time of Disposition: 16:15 Impression: Primary Impression: COVID Disposition: 01 HOME / SELF CARE / HOMELESS Condition: Fair e-Prescriptions Benzonatate (Benzonatate) 100 Mg Cap 1 CAP PO TID for 10 Days, #30 CAP 0 Refills Prov: REGINALD WHITAKER CHIEF UNDERWRITER 04/15/25 Ibuprofen Micronized (Ibuprofen) 600 Mg Tab 600 MG PO TIDWM for 10 Days, #30 TAB 0 Refills Prov: REGINALD WHITAKER CHIEF UNDERWRITER 04/15/25 Critical Care Note Critical Care Time?: No Stability Stability form required: No Heart Score Heart Score: Heart Score Response (Comments) Value History N/A 0 EKG N/A 0 Age N/A 0 Risk Factors N/A 0 Troponin N/A 0 Total 0 I personally scribed for REGINALD WHITAKER NP ([email or web address]) on 04/15/25 at 14:34. Electronically submitted by Madisyn Kingsley ([email or web address]). I personally scribed for REGINALD WHITAKER NP ([email or web address]) on 04/15/25 at 14:37. Elect ronically submitted by Madisyn Kingsley ([email or web address]). REGINALD WHITAKER NP Apr 15, 2025 14:34
[2025-04-15 14:38] LABS: Hematocrit 38.5 % (36.0-46.0); Hemoglobin 13.2 g/dL (12.2-16.2); Mean Corpuscular Hemoglobin 31.0 pg (28.0-32.0); Mean Corpuscular Volume 90.6 fL (80.0-100.0); Nucleated Red Blood Cells % 0.2 %
[2025-04-15 14:53] LABS: Alanine Aminotransferase 34 U/L (7-40); Alkaline Phosphatase 85 U/L (46-116); Anion Gap 10 (5-15); BUN/Creatinine Ratio 10.5 (10.0-20.0); Blood Urea Nitrogen 13 mg/dL (9-23); Calcium 10.2 mg/dL (8.7-10.4); Carbon Dioxide 24 mmol/L (20-31); Glucose 94 mg/dL (74-106); Potassium 3.6 mmol/L (3.5-5.1); Sodium 141 mmol/L (136-145); Total Protein 7.5 g/dL (5.7-8.2)
[2025-04-15 14:54] LABS: Albumin 4.6 g/dL (3.2-4.8); Bilirubin, Total 0.9 mg/dL (0.2-1.0); Chloride 107 mmol/L (98-107)
[2025-04-15] MEDS: IBUPROFEN 800 MG TAB PO ONE (14:59)
[2025-04-15 15:03] LABS: Rapid Strep A Screen-Throat Negative
[2025-04-15 15:24] LABS: Urine Protein, UAD Negative (Negative)
[2025-04-15 15:35] LABS: COVID19 ANTIGEN SOFIA FIA POSITIVE (NEGATIVE)
[2025-04-15] MEDS ORDERED: BENZ100C97 PO (16:16)
[2025-04-15] MEDS ORDERED: IBUP1TAB5 PO (16:16)
[2025-04-15 17:04] VITALS: BP 139/74; PULSE 70; RESP 20; O2SAT 96
[2025-04-15 17:06] VITALS: TEMP 99.7
== END 2025-04-15 17:55 | disposition home or self-care (01) ==
LOC: ER 13:45
DX: U07.1 COVID-19 (principal); I12.0 Hypertensive chronic kidney disease with stage 5 chronic kidney disease or end stage renal disease; I48.91 Unspecified atrial fibrillation; J45.909 Unspecified asthma, uncomplicated; N18.6 End stage renal disease; K21.9 Gastro-esophageal reflux disease without esophagitis; Z79.01 Long term (current) use of anticoagulants; Z79.52 Long term (current) use of systemic steroids; Z79.899 Other long term (current) drug therapy; Z85.038 Personal history of other malignant neoplasm of large intestine; Z86.73 Personal history of transient ischemic attack (TIA), and cerebral infarction without residual deficits; Z88.0 Allergy status to penicillin; Z88.1 Allergy status to other antibiotic agents; Z88.5 Allergy status to narcotic agent; Z88.6 Allergy status to analgesic agent; Z88.8 Allergy status to other drugs, medicaments and biological substances; Z90.49 Acquired absence of other specified parts of digestive tract; Z90.710 Acquired absence of both cervix and uterus; Z20.822 Contact with and (suspected) exposure to COVID-19
CPT/HCPCS: 36415; 80053; 81001; 85025; 87070; 87426; 87804; 87880; 96360; 96372; 99283; J1100; J7030; 96361

== ENCOUNTER 2025-07-15 09:05 | Emergency (ER) | payer MEDICAID ==
[~2025-07-15] VITALS: Ht 175.3 cm; Wt 124.3 kg
[~2025-07-15 09:05] MED LIST changes: +BENZ100C97 PO; +IBUP1TAB5 PO
--- NOTE | 2025-07-15 09:33 | ED.PDOC ---
Back pain HPI HPI Comments 44F PRESENTS TO THE ER W/ PRIOR MHX OF HTN, CHRONIC BACK PAIN;SHX OF HYSTERECTOMY AND THE C/C OF BACK PAIN/HIGH BP.PT REPORTS ON HAVING MID TO LOWER BACK PAIN WHICH IS PRESSURE LIKE SINCE YESTERDAY OF 07/14/25. PT NOTES THAT THE PAIN IS CONSTANT BUT INCREASES WHENEVER SHE SITS OR WALKS. ONSET STARTED THIS AM AFTER WAKING UP. C/O A TIGHT SENSATION THROUGHOUT HER BACK. HAD A CERVICAL MRI 05/2025 AND RESULTS SHOWED MULTILEVEL SPONDYLOTIC CHANGES OF THE THROACIC SPINE GREATEST BEING AT T11-T12. FOLLOWS UP WITH PAIN MANAGEMENT AND CURRENTLY PENDING APT FOR ORTHO CONSULTATION. TAKES MUSCLE RELAXERS FOR HER PAIN. Denies history of chronic steroid use or history of osteoporosis Denies history of cancer Denies fevers chills night sweats nausea vomiting unintentional weight loss Denies abdominal tearing pain Denies syncope Denies urinary changes or urinary incontinence Denies numbness tingling of the groin her inner thigh Denies previous back procedures or surgeries Chief Complaint: Back Pain Time Seen by MD: 09:30 Primary Care Provider: TICO INIGUEZ Reviewed Notes: Nurses Notes, Medications, Allergies Allergies: Coded Allergies: Acetaminophen (Verified Allergy, Unknown, 09/06/15) Aspirin (Verified Allergy, Unknown, 11/21/19) Codeine (Verified Allergy, Unknown, 11/21/19) Hydrocodone (Verified Allergy, Unknown, 09/06/15) Hydromorphone (Verified Allergy, Unknown, 11/21/19) Levothyroxine (Verified Allergy, Unknown, 09/06/15) Lisinopril (Verified Allergy, Unknown, 11/21/19) Methadone (Verified Allergy, Unknown, 11/21/19) Morphine (Verified Allergy, Unknown, 09/06/15) Mupirocin (Verified Allergy, Unknown, 11/21/19) Nitrofurantoin (Verified Allergy, Unknown, 09/06/15) Nitroglycerin (Verified Allergy, Unknown, 11/21/19) Penicillins (Verified Allergy, Unknown, 11/21/19) Tramadol (Verified Allergy, Unknown, 11/21/19) Home Meds Active Scripts Benzonatate (Benzonatate) 100 Mg Cap, 1 CAP PO TID for 10 Days, #30 CAP 0 Refills Prov:REGINALD WHITAKER DIRECTOR OF CARDIOLOGY 04/15/25 Ibuprofen Micronized (Ibuprofen) 600 Mg Tab, 600 MG PO TIDWM for 10 Days, #30 TAB 0 Refills Prov:REGINALD WHITAKER NP 04/15/25 Prednisone (Prednisone) 20 Mg Tab, 20 MG PO DAILY for 5 Days, #5 TAB Prov:JENN HENRY MD 01/13/25 Dexamethasone (Decadron) 4 Mg Tb, 4 TAB PO DAILY for 3 Days, #12 TAB Prov:JENN HENRY MD 01/13/25 Ipratropium-Albuterol (COMBIVENT RESPIMAT) Respimat Aer, 2 PUFF IN Q4HP PRN, #1 AER Prov:JENN HENRY MD 01/13/25 Azithromycin (Zithromax Z-Justin) 250 Mg Tab, 250 MG PO DAILY for 5 Days, #5 TAB Prov:JENN HENRY MD 01/13/25 Ranolazine (Ranolazine ER) 500 Mg Tab, 500 MG PO BID, #60 TAB 3 Refills Prov:RICKIE MCNALLY MD 05/05/23 Amiodarone Hcl (Amiodarone Hcl) 200 Mg Tab, 200 MG PO BID, #60 TAB 5 Refills Prov:RICKIE MCNALLY MD 05/05/23 Metoprolol Tartrate (Lopressor) 25 Mg Tb, 25 MG PO BID, #60 TAB 5 Refills Prov:RICKIE MCNALLY MD 05/05/23 Apixaban Base (ELIQUIS) 5 Mg Tab, 5 MG PO BID, #60 TAB 5 Refills Prov:RICKIE MCNALLY MD 05/05/23 Reported Medications Dupilumab (Dupixent) 300 Mg/2 Ml Inj, SC 05/04/23 Budesonide-Formoterol Fumarate (Budesonide/Formoterol Fum 80-4.5 Mcg/Act) 1 Aer Aer, PO 05/04/23 Amitriptyline Hcl (Amitriptyline Hcl) 25 Mg Tab, 2 TAB PO DAILY 05/04/23 Atorvastatin Calcium (ATORVASTATIN CALCIUM) 40 Mg Tab, 1 TAB PO DAILY 05/04/23 Semaglutide (Wegovy) 2.4 Mg/0.75 Ml Inj, SC 05/04/23 Montelukast Sodium (MONTELUKAST SODIUM) 4 Mg Chw, 1 TAB PO DAILY 05/04/23 Albuterol Sulfate (Albuterol Sulfate Hfa) 108 Mcg/Act Aer, 2 PUFF INH Q4HPRN PRN for wheezing 05/04/23 Pantoprazole Sodium Sesquihydr (Pantoprazole Sodium Dr) 40 Mg Tab, 1 TAB PO DAILY 05/04/23 Nifedipine (Nifedipine Er) 60 Mg Tab, 1 TAB PO DAILY 05/04/23 Magnesium Oxide (mg Supplement (Magnesium-Oxide) 400 Mg Tab, 1 TAB PO DAILY 05/04/23 Losartan Potassium (Losartan Potassium) 100 Mg Tab, 1 TAB PO DAILY 05/04/23 Lidocaine (Ztlido) 1.8 % Pad, 1 PATCH TOP DAILY 05/04/23 Chlorthalidone (Chlorthalidone) 25 Mg Tab, 1 TAB PO DAILY 05/04/23 Rizatriptan Benzoate (RIZATRIPTAN BENZOATE) 10 Mg Tab, PO 05/04/23 Diclofenac Sodium (Topical) (Diclofenac Sodium) 1 % Gel, TOP 05/04/23 Diphenhydramine Hcl (Benadryl Allergy) 25 Mg Cap, 1 CAP PO QPM, #30 CAP 1 Refill 05/04/23 Information Source: Patient Mode of Arrival: Ambulatory Timing: Hours Duration: Since onset, Hours Severity: None Prehospital treatment: None Quality: Other (PRESSURE) Onset: Spontaneous History of: Chronic Back Pain Associated signs and symptoms: None Past Medical History PAST MEDICAL HISTORY: AFIB, Asthma, Cancer, ESRD, GERD, HTN, Seizures, Thyroid, TIA Surgical History: Appendectomy, Hysterectomy, Tubal Ligation EXTENSION CLERK History: No Pertinent EXTENSION CLERK History Family History Family History: Reviewed,noncontributory to illness, Unknown Social History Smoker: Non-Smoker Alcohol: Denies ETOH Use Drugs: Denies Drug Use Lives In: Home Constitutional: denies: chills, diaphoresis, fatigue, fever, malaise, sweats, weakness, others EENTM: denies: blurred vision, double vision, ear bleeding, ear discharge, ear drainage, ear pain, ear ringing, eye pain, eye redness, hearing loss, mouth pain, mouth swelling, nasal discharge, nose bleeding, nose congestion, nose pain, photophobia, tearing, throat pain, throat swelling, voice changes, others Respiratory: denies: cough, hemoptysis, orthopnea, SOB at rest, shortness of breath, SOB with excertion, stridor, wheezing, others Cardiovascular: denies: chest pain, dizzy spells, diaphoresis, Dyspnea on exertion, edema, irregular heart beat, left arm pain, lightheadedness, p alpitations, PND, syncope, others Gastrointestinal: denies: abdomen distended, abdominal pain, blood streaked bowels, constipated, diarrhea, dysphagia, difficulty swallowing, hematemesis, melena, nausea, poor appetite, poor fluid intake, rectal bleeding, rectal pain, vomiting, others Genitourinary: denies: abnormal vagina bleeding, burning, dyspareunia, dysuria, flank pain, frequency, hematuria, incontinence, pain, , vagina discharge, urgency, others Neurological: denies: dizziness, fainting, headache, left sided numbness, left sided weakness, numbness, paresthesia, pre-existing deficit, right sided numbness, right sided weakness, seizure, speech problems, tingling, tremors, weakness, others Musculoskeletal: reports: back pain; denies: gout, joint pain, joint swelling, muscle pain, muscle stiffness, neck pain, others Integumetry: denies: bruises, change in color, change in hair/nails, dryness, laceration, lesions, lumps, rash, wounds, others Allergic/Immunocompromised: denies: Difficulty Healing, Frequent Infections, Hives, Itching, others Hematologic/Lymphatic: denies: anemia, blood clots, easy bleeding, easy bruising, swollen glands, others Endocrine: denies: excessive hunger, excessive sweating, excessive thirst, excessive urination, flushing, intolerance to cold, intolerance to heat, unexplained weight gain, unexplained weight loss, others Psychiatric: denies: anxiety, bipolar disorder, depression, hopeless, panic disorder, schizophrenia, sleepless, suicidal, others All Other Systems: Reviewed and Negative Physical Exam General Appearance: No Apparent Distress, Normal HEENT: Normal ENT Inspection, Pharynx Normal, TMs Normal Neck: Full Range of Motion, Non-Tender, Normal, Normal Inspection Respiratory: Chest Non-Tender, Lungs Clear, No Accessory Muscle Use, No Respiratory Distress, Normal Breath Sounds Cardiovascular: No Edema, No JVD, No Murmur, No Gallop, Normal Peripheral Pulses, Regular Rate/Rhythm Breast Exam: Deferred Gastrointestinal: No Organomegaly, Non Tender, No Pulsatile Mass, Normal Bowel Sounds, Soft Genitalia: Deferred Pelvic: Deferred Rectal: Deferred Extremities: No calf tenderness, Normal capillary refill, Normal inspection, N ormal range of motion, Non-tender, No pedal edema Musculoskeletal : Extremity Location: Back (NO DEFORMITY NO ABRASIONS NO HEMATOMAS NO CONTUSIONS. DIFFUSE TTP THROUGHOUT THE BACK) Apperance: Normal Neurologic: Alert, embosser apprentice II-XII nml as Tested, No Motor Deficits, Normal Affect, Normal Mood, No Sensory Deficits Cerebellar Function: Normal Reflexes: Normal Skin: Dry, Normal Color, Warm Lymphatic: No Adenopathy Was a procedure done? Was a procedure done?: No Back Pain Differential Dx Differential Diagnosis: Musculoskeletal Pain X-Ray, Labs, Meds, VS Vital Signs Date Time Temp Pulse Resp B/P (MAP) Pulse Ox O2 Delivery O2 Flow Rate FiO2 07/15/25 09:08 97.8 100 20 154/112 97 97.8 X-Ray, Labs, Meds, VS Comment 44F PRESENTS TO THE ER W/ PRIOR MHX OF HTN, CHRONIC BACK PAIN;SHX OF HYSTERECTOMY AND THE C/C OF BACK PAIN I CONSIDERED CAUDA EQUINA, SPINAL CORD COMPRESSION, VERTEBRAL MALIGNANCY/METS, ACUTE SPINAL FRACTURE, VERTEBRAL OSTEOMYELITIS, EPIDURAL ABSCESS, INFECTED OR OBSTRUCTED KIDNEY STONE, HOWEVER THIS IS LESS LIKELY THE PATIENT DOES NOT PRESENT WITH LOWER BACK PAIN RED FLAGS SYMPTOMS SUCH BOWEL OR BLADDER DYSFUNCTION, SADDLE ANESTHESIA, PARESTHESIA, AND WITHOUT ANY HISTORY OF MALIGNANCY OR RECENT BACK TRAUMA OR SPINAL INTERVENTIONS. THEREFORE FURTHER IMAGING STUDIES SUCH A LUMBAR MRI WERE NOT INDICATED ON TODAY'S VISIT. PRESENTATION MOST CONSISTENT WITH NONEMERGENT MUSCULOSKELETAL ETIOLOGY VERSUS NONEMERGENT DISC HERNIATION. ED WORKUP: [facility] AND LAB WORK FOR OUTPATIENT FOLLOW UP AT THIS TIME DISPOSITION: DISCHARGE. STRICT RETURN PRECAUTIONS DISCUSSED WITH THE PATIENT WITH FULL UNDERSTANDING. SUPPORTIVE CARE ADVISED (REST, ICE, HEAT, NSAIDS, STRETCHING EXERCISES) MASSAGE MUSCLES WITH COLD PACK OR ICE FOR 20 MINUTES 4 TIMES PER DAY. USUALLY MOST USEFUL IF THERE IS SWELLING DURING THE FIRST 48 HOURS HEATING PAD ON THE MOST PAINFUL AREA FOR 20 MINUTES TO RELIEVE MUSCLE SPASM SLEEP AND THE MOST COMFORTABLE SLEEPING POSITION (USUALLY ON THE SIDE WITH KNEES BENT) LIGHT STRETCHING, NO STRENUOUS ACTIVITY, AVOID FREQUENT BENDING, AVOID CARRYING HEAVY OBJECTS DISCUSSED POSSIBLE BENEFITS OF YOGA AND ACUPUNCTURE RETURN PRECAUTIONS DISCUSSED INCLUDING INABILITY TO WALK/BEAR WEIGHT PARESTHESIA/WEAKNESS/LEG PAIN FECAL/URINARY INCONTINENCE ANY WORSENING SYMPTOMS Time of 1ST Reevaluation: 10:00 Reevaluation 1ST: Improved Patient Education/Counseling: Diagnosis, Treatment, Prognosis Family Education/Counseling: No Family Present SEPSIS Sepsis Screen Date sepsis recognized/suspect: Jul 15, 2025 Time Sepsis recognized/suspect: 907 Recent Procedure: No On Antibiotic Therapy: No Respiratory Rate >20: No Heart Rate >90: Yes Temp<36 C (96.8 F) or >38.3 C: No SBP <90 or MAP <65 mmHG: No New Acute Mental Status Change: No Is the patient on CPAP, BIPAP,: No Vital Signs Date Time Temp Pulse Resp B/P (MAP) Pulse Ox O2 Delivery O2 Flow Rate FiO2 07/15/25 09:08 97.8 100 20 154/112 97 97.8 Departure 1 Departure Time of Disposition: 10:32 Impression: Primary Impression: Dorsalgia Disposition: HOME / SELF CARE / HOMELESS Condition: Stable Discharged With: Self Critical Care Note Critical Care Time?: No Stability Stability form required: No Heart Score Heart Score: Heart Score Response (Comments) Value History N/A 0 EKG N/A 0 Age N/A 0 Risk Factors N/A 0 Troponin N/A 0 Total 0 I personally scribed for REGINALD WHITAKER NP ([email or web address]) on 07/15/25 at 09:33. Electronically submitted by Khris Bishop ([email or web address]). REGINALD WHITAKER NP Jul 15, 2025 09:33
[2025-07-15] MEDS: methylPREDNISolone SOD SUCC 125 MG/2 ML VL IM ONE (10:57)
[2025-07-15 11:09] VITALS: BP 139/99; PULSE 95; RESP 16; TEMP 97.8; O2SAT 99
== END 2025-07-15 11:13 | disposition home or self-care (01) ==
LOC: ER 09:05
DX: G89.29 Other chronic pain (principal); M54.50 Low back pain, unspecified; I12.0 Hypertensive chronic kidney disease with stage 5 chronic kidney disease or end stage renal disease; N18.6 End stage renal disease; I48.91 Unspecified atrial fibrillation; J45.909 Unspecified asthma, uncomplicated; E03.9 Hypothyroidism, unspecified; Z79.899 Other long term (current) drug therapy; Z85.850 Personal history of malignant neoplasm of thyroid; Z90.49 Acquired absence of other specified parts of digestive tract; Z90.710 Acquired absence of both cervix and uterus; Z86.73 Personal history of transient ischemic attack (TIA), and cerebral infarction without residual deficits; Z88.0 Allergy status to penicillin; Z88.1 Allergy status to other antibiotic agents; Z88.5 Allergy status to narcotic agent; Z88.6 Allergy status to analgesic agent; Z88.8 Allergy status to other drugs, medicaments and biological substances
CPT/HCPCS: 96372; 99283; J2919

== ENCOUNTER 2025-09-05 17:27 | Emergency (ER) | payer MEDICAID ==
[~2025-09-05] VITALS: Ht 175.3 cm; Wt 125.1 kg
--- NOTE | 2025-09-05 18:22 | ED.PDOC ---
HPI Comments PT REFERRED FROM URGENT CARE TO ED FOR ELEVATED BLOOD PRESSURE, HEADACHE, NAUSEA, INSOMNIA AND BLURRED VISION X1 DAY. PT STATED SHE RAN OUT OF CLONIDINE PRESCRIPTION AT HOME. BP-162/95. HX: A-FIB, HTN, MIGRAINES GCS-15, ALL VSS. DENIES CP, POLO, WEAKNESS, NUMBNESS OR SOB. Chief Complaint: Headache Time Seen by MD: 18:06 Primary Care Provider: TICO INIGUEZ Reviewed Notes: Nurses Notes, Medications, Allergies Allergies: Coded Allergies: Acetaminophen (Verified Allergy, Unknown, 09/06/15) Aspirin (Verified Allergy, Unknown, 11/21/19) Codeine (Verified Allergy, Unknown, 11/21/19) Hydrocodone (Verified Allergy, Unknown, 09/06/15) Hydromorphone (Verified Allergy, Unknown, 11/21/19) Levothyroxine (Verified Allergy, Unknown, 09/06/15) Lisinopril (Verified Allergy, Unknown, 11/21/19) Methadone (Verified Allergy, Unknown, 11/21/19) Morphine (Verified Allergy, Unknown, 09/06/15) Mupirocin (Verified Allergy, Unknown, 11/21/19) Nitrofurantoin (Verified Allergy, Unknown, 09/06/15) Nitroglycerin (Verified Allergy, Unknown, 11/21/19) Penicillins (Verified Allergy, Unknown, 11/21/19) Tramadol (Verified Allergy, Unknown, 11/21/19) Home Meds Active Scripts Clonidine Hydrochloride (Clonidine Hcl) 0.1 Mg Tab, 0.1 MG PO BID PRN for 15 Days, #30 TAB Prov:RAFA PAZ 09/05/25 Benzonatate (Benzonatate) 100 Mg Cap, 1 CAP PO TID for 10 Days, #30 CAP 0 Refills Prov:REGINALD WHITAKER NP 04/15/25 Ibuprofen Micronized (Ibuprofen) 600 Mg Tab, 600 MG PO TIDWM for 10 Days, #30 TAB 0 Refills Prov:REGINALD WHITAKER NP 04/15/25 Prednisone (Prednisone) 20 Mg Tab, 20 MG PO DAILY for 5 Days, #5 TAB Prov:JENN HENRY MD 01/13/25 Dexamethasone (Decadron) 4 Mg Tb, 4 TAB PO DAILY for 3 Days, #12 TAB Prov:JENN HENRY MD 01/13/25 Ipratropium-Albuterol (COMBIVENT RESPIMAT) Respimat Aer, 2 PUFF IN Q4HP PRN, #1 AER Prov:JENN HENRY MD 01/13/25 Azithromycin (Zithromax Z-Justin) 250 Mg Tab, 250 MG PO DAILY for 5 Days, #5 TAB Prov:JENN HENRY MD 01/13/25 Ranolazine (Ranolazine ER) 500 Mg Tab, 500 MG PO BID, #60 TAB 3 Refills Prov:RICKIE MCNALLY MD 05/05/23 Amiodarone Hcl (Amiodarone Hcl) 200 Mg Tab, 200 MG PO BID, #60 TAB 5 Refills Prov:RICKIE MCNALLY MD 05/05/23 Metoprolol Tartrate (Lopressor) 25 Mg Tb, 25 MG PO BID, #60 TAB 5 Refills Prov:RICKIE MCNALLY MD 05/05/23 Apixaban Base (ELIQUIS) 5 Mg Tab, 5 MG PO BID, #60 TAB 5 Refills Prov:RICKIE MCNALLY MD 05/05/23 Reported Medications Dupilumab (Dupixent) 300 Mg/2 Ml Inj, SC 05/04/23 Budesonide-Formoterol Fumarate (Budesonide/Formoterol Fum 80-4.5 Mcg/Act) 1 Aer Aer, PO 05/04/23 Amitriptyline Hcl (Amitriptyline Hcl) 25 Mg Tab, 2 TAB PO DAILY 05/04/23 Atorvastatin Calcium (ATORVASTATIN CALCIUM) 40 Mg Tab, 1 TAB PO DAILY 05/04/23 Semaglutide (Wegovy) 2.4 Mg/0.75 Ml Inj, SC 05/04/23 Montelukast Sodium (MONTELUKAST SODIUM) 4 Mg Chw, 1 TAB PO DAILY 05/04/23 Albuterol Sulfate (Albuterol Sulfate Hfa) 108 Mcg/Act Aer, 2 PUFF INH Q4HPRN PRN for wheezing 05/04/23 Pantoprazole Sodium Sesquihydr (Pantoprazole Sodium Dr) 40 Mg Tab, 1 TAB PO DAILY 05/04/23 Nifedipine (Nifedipine Er) 60 Mg Tab, 1 TAB PO DAILY 05/04/23 Magnesium Oxide (mg Supplement (Magnesium-Oxide) 400 Mg Tab, 1 TAB PO DAILY 05/04/23 Losartan Potassium (Losartan Potassium) 100 Mg Tab, 1 TAB PO DAILY 05/04/23 Lidocaine (Ztlido) 1.8 % Pad, 1 PATCH TOP DAILY 05/04/23 Chlorthalidone (Chlorthalidone) 25 Mg Tab, 1 TAB PO DAILY 05/04/23 Rizatriptan Benzoate (RIZATRIPTAN BENZOATE) 10 Mg Tab, PO 05/04/23 Diclofenac Sodium (Topical) (Diclofenac Sodium) 1 % Gel, TOP 05/04/23 Diphenhydramine Hcl (Benadryl Allergy) 25 Mg Cap, 1 CAP PO QPM, #30 CAP 1 Refill 05/04/23 Mode of Arrival: Ambulatory Past Medical History PAST MEDICAL HISTORY: AFIB, Asthma, Cancer, ESRD, GERD, HTN, Seizures, Thyroid, TIA Surgical History: Appendectomy, Hysterectomy, Tubal Ligation TOMATO GRADER History: No Pertinent TOMATO GRADER History Family History Family History: Reviewed,noncontributory to illness, Unknown Social History Smoker: Non-Smoker Alcohol: Denies ETOH Use Drugs: Denies Drug Use Lives In: Home All Other Systems: Reviewed and Negative (SEE HPI) Physical Exam General Appearance: No Apparent Distress, Normal HEENT: Normal ENT Inspection, Pharynx Normal, TMs Normal Neck: Full Range of Motion, Non-Tender Respiratory: Lungs Clear, No Respiratory Distress, Normal Breath Sounds Cardiovascular: No Edema, No JVD, No Murmur, No Gallop, Normal Peripheral Pulses, Regular Rate/Rhythm Breast Exam: Deferred Gastrointestinal: No Organomegaly, Non Tender, No Pulsatile Mass, Normal Bowel Sounds, Soft Genitalia: Deferred Pelvic: Deferred Rectal: Deferred Extremities: Normal capillary refill, Normal range of motion, No pedal edema Musculoskeletal : Apperance: Normal Neurologic: Alert, No Motor Deficits, Normal Affect, Normal Mood, No Sensory Deficits Cerebellar Function: Normal Reflexes: NOT DONE Skin: Dry, Normal Color, Warm Lymphatic: No Adenopathy Was a procedure done? Was a procedure done?: No CP Differential Dx Differential Diagnosis: Angina, Anxiety / Panic Attack, PAC's, PVC's Differential Diagnosis: HTN Essential, HTN Accelerated X-Ray, Labs, Meds, VS Vital Signs Date Time Temp Pulse Resp B/P (MAP) Pulse Ox O2 Delivery O2 Flow Rate FiO2 09/05/25 19:05 150/97 09/05/25 19:03 98.6 83 16 150/97 (114) 99 98.6 09/05/25 18:27 165/114 09/05/25 18:14 90 17 100 Room Air 09/05/25 18:14 98.6 90 17 165/114 (131) 100 98.6 09/05/25 17:28 97.9 97 18 162/95 99 97.9 Current Medications Medications (Trade) Dose Ordered Sig/Ana Route Start Time Stop Time Status Last Admin Clonidine HCl (Catapres Tablet) 0.1 mg ONCE ONCE PO 09/05/25 18:30 09/05/25 18:31 DC 09/05/25 18:27 Dexamethasone Sodium Phosphate (Decadron Injection) 10 mg ONCE ONCE IM 09/05/25 18:30 09/05/25 18:31 DC 09/05/25 18:36 Ondansetron HCl (Zofran Po) 4 mg ONCE ONCE PO 09/05/25 18:45 09/05/25 18:46 DC 09/05/25 18:38 X-Ray, Labs, Meds, VS Comment PT REPORTS MODERATE IMPROVEMENT IN MIGRAINE. BP STABILIZED W/CLONIDINE, PT REQUESTING REFILL Time of 1ST Reevaluation: 18:06 Reevaluation 1ST: Unchanged Time of 2ND Reevaluation: 19:04 Reevaluation 2ND: Improved Patient Education/Counseling: Diagnosis, Treatment, Need For Follow Up Family Education/Counseling: No Family Present SEPSIS Sepsis Screen Date sepsis recognized/suspect: Sep 05, 2025 Time Sepsis recognized/suspect: 1728 Recent Procedure: No On Antibiotic Therapy: No Respiratory Rate >20: No Heart Rate >90: No Temp<36 C (96.8 F) or >38.3 C: No SBP <90 or MAP <65 mmHG: No New Acute Mental Status Change: No Is the patient on CPAP, BIPAP,: No Vital Signs Date Time Temp Pulse Resp B/P (MAP) Pulse Ox O2 Delivery O2 Flow Rate FiO2 09/05/25 19:05 150/97 09/05/25 19:03 98.6 83 16 150/97 (114) 99 98.6 09/05/25 18:27 165/114 09/05/25 18:14 90 17 100 Room Air 09/05/25 18:14 98.6 90 17 165/114 (131) 100 98.6 11/21/25 17:28 97.9 97 18 162/95 99 97.9 Medications Medications Dose Ordered Sig/Ana Route Start Time Stop Time Status Last Admin Dose Admin Clonidine HCl 0.1 mg ONCE ONCE PO 09/05/25 18:30 09/05/25 18:31 DC 09/05/25 18:27 Dexamethasone Sodium Phosphate 10 mg ONCE ONCE IM 09/05/25 18:30 09/05/25 18:31 DC 09/05/25 18:36 Ondansetron HCl 4 mg ONCE ONCE PO 09/05/25 18:45 09/05/25 18:46 DC 09/05/25 18:38 Departure 1 Departure Time of Disposition: 19:04 Impression: Primary Impression: Migraine Qualified Codes: G43.909 - Migraine, unspecified, not intractable, without status migrainosus Additional Impressions: Encounter for medication refill Hypertension Qualified Codes: I10 - Essential (primary) hypertension Disposition: HOME / SELF CARE / HOMELESS Condition: Stable e-Prescriptions Clonidine Hydrochloride (Clonidine Hcl) 0.1 Mg Tab 0.1 MG PO BID PRN for 15 Days, #30 TAB Prov: RAFA PAZ 09/05/25 Discharged With: Self Critical Care Note Critical Care Time?: No Stability Stability form required: No Heart Score Heart Score: Heart Score Response (Comments) Value History N/A 0 EKG N/A 0 Age 45-64 1 Risk Factors 1 or 2 risk factors 1 Troponin N/A 0 Total 2 RAFA PAZ Sep 05, 2025 18:22
[2025-09-05] MEDS ORDERED: ONDANSETRON ODT 4 MG TAB ONE (18:38)
[2025-09-05] MEDS: ONDANSETRON ODT 4 MG TAB PO ONE (18:38)
[2025-09-05 19:03] VITALS: BP 150/97; PULSE 83; RESP 16; TEMP 98.6; O2SAT 99
[2025-09-05] MEDS ORDERED: CLON0.1T PO (19:05)
== END 2025-09-05 19:10 | disposition home or self-care (01) ==
LOC: ER 17:27
DX: G43.909 Migraine, unspecified, not intractable, without status migrainosus (principal); I12.0 Hypertensive chronic kidney disease with stage 5 chronic kidney disease or end stage renal disease; N18.6 End stage renal disease; J45.909 Unspecified asthma, uncomplicated; I48.91 Unspecified atrial fibrillation; K21.9 Gastro-esophageal reflux disease without esophagitis; Z79.899 Other long term (current) drug therapy; Z90.710 Acquired absence of both cervix and uterus; Z88.6 Allergy status to analgesic agent; Z88.1 Allergy status to other antibiotic agents; Z90.49 Acquired absence of other specified parts of digestive tract; Z88.5 Allergy status to narcotic agent; Z86.73 Personal history of transient ischemic attack (TIA), and cerebral infarction without residual deficits; Z88.8 Allergy status to other drugs, medicaments and biological substances; Z88.0 Allergy status to penicillin; Z79.52 Long term (current) use of systemic steroids; Z79.01 Long term (current) use of anticoagulants; Z76.0 Encounter for issue of repeat prescription
CPT/HCPCS: 96372; 99283; J1100; Q0162

== ENCOUNTER 2025-10-11 21:43 | Inpatient (IN) | payer MEDICAID ==
[~2025-10-11] VITALS: Ht 175.3 cm; Wt 136.3 kg
[~2025-10-11 21:43] MED LIST changes: +AZEL0.1S EACHNOSTRI; +BUDE1AER15 IN; +CETI10TA2 PO; +CHLO50TA PO; +CLON0.1T PO; +CLOP75TA28 PO; +ESTR0.056 TD; +FLUT50SP31; +HYDR-3682 PO; +MONT-8 PO; +PANT40TA2 PO; +TIZA2CAP13 PO
--- NOTE | 2025-10-11 23:04 | DVH ---
INDICATION: CHEST PAIN/SOB TECHNIQUE: Frontal view of the chest. COMPARISON: XY CHEST TWO VIEWS ROUTINE on DOS: 04/22/25, XY CHEST PORTABLE on DOS: 01/12/25, XY CHEST PORTABLE on DOS: 10/08/24, XY CHEST PORTABLE on DOS: 09/26/24, XY CHEST PORTABLE on DOS: 03/19/24 FINDINGS/IMPRESSION: Mild prominence of the interstitial markings. The cardiomediastinal silhouette is unchanged. No pleural effusion or pneumothorax. No acute osseous abnormality.
[2025-10-11 23:06] LABS: Hematocrit 41.7 % (36.0-46.0); Hemoglobin 14.1 g/dL (12.2-16.2); Mean Corpuscular Hemoglobin 30.6 pg (28.0-32.0); Mean Corpuscular Volume 90.4 fL (80.0-100.0); Nucleated Red Blood Cells % 0.1 %
[2025-10-11 23:23] LABS: Alanine Aminotransferase 24 U/L (7-40); Albumin 4.4 g/dL (3.2-4.8); Alkaline Phosphatase 89 U/L (46-116); Anion Gap 7 (5-15); BUN/Creatinine Ratio 8.0 (10.0-20.0); Bilirubin, Total 0.8 mg/dL (0.2-1.0); Calcium 9.5 mg/dL (8.7-10.4); Carbon Dioxide 27 mmol/L (20-31); Chloride 105 mmol/L (98-107); Glucose 85 mg/dL (74-106); Potassium 3.6 mmol/L (3.5-5.1); Sodium 139 mmol/L (136-145); Total Protein 7.7 g/dL (5.7-8.2)
[2025-10-11 23:24] LABS: Blood Urea Nitrogen 8 mg/dL (9-23)
[2025-10-11] MEDS: ALBUTEROL SULF 2.5 MG/0.5ML(0.5%) NEB SOLN NEB ONE (23:32)
[2025-10-11] MEDS: IPRATROPIUM BROM 0.5 MG/2.5ML INH SOL NEB ONE (23:32)
[2025-10-11] MEDS: FUROSEMIDE 20 MG/2 ML VIAL IV ONE (23:45)
--- NOTE | 2025-10-11 23:45 | ED.PDOC ---
SOB-HPI HPI Comments 45-year-old female who came to ER for shortness of breath. Patient does have history of hypertension, AFib and asthma. Was watching her son's basketball game earlier when he started having shortness of breath and chest tightness, which progressively worsened so she decided to go to the emergency room. Upon arrival blood pressure was 207/116 mm Hg Chief Complaint: Shortness of Breath Time Seen by MD: 23:45 Primary Care Provider: TICO INIGUEZ Reviewed notes: Nurses Notes Information Source: Patient Mode of Arrival: Ambulatory Past Medical History PAST MEDICAL HISTORY: AFIB, Asthma, Cancer, GERD, HTN, Seizures, Thyroid, TIA Surgical History: Appendectomy, Hysterectomy, Tubal Ligation [employer] History: No Pertinent [employer] History Family History Family History: Reviewed,noncontributory to illness, Unknown Social History Smoker: Non-Smoker Alcohol: Denies ETOH Use Drugs: Denies Drug Use Lives In: Home Constitutional: denies: chills, diaphoresis, fatigue, fever, malaise, sweats, weakness, others EENTM: denies: blurred vision, double vision, ear bleeding, ear discharge, ear drainage, ear pain, ear ringing, eye pain, eye redness, hearing loss, mouth pain, mouth swelling, nasal discharge, nose bleeding, nose congestion, nose pain, photophobia, tearing, throat pain, throat swelling, voice changes, others Respiratory: reports: SOB at rest, shortness of breath; denies: cough, hemoptysis, orthopnea, SOB with excertion, stridor, wheezing, others Cardiovascular: reports: chest pain; denies: dizzy spells, diaphoresis, Dyspnea on exertion, edema, irregular heart beat, left arm pain, lightheadedness, palpitations, PND, syncope, others Gastrointestinal: denies: abdomen distended, abdominal pain, blood streaked bowels, constipated, diarrhea, dysphagia, difficulty swallowing, hematemesis, melena, nausea, poor appetite, poor fluid intake, rectal bleeding, rectal pain, vomiting, others Genitourinary: denies: abnormal vagina bleeding, burning, dyspareunia, dysuria, flank pain, frequency, hematuria, incontinence, pain, , vagina discharge, urgency, others Neurological: denies: dizziness, fainting, headache, left sided numbness, left sided weakness, numbness, paresthesia, pre-existing deficit, right sided numbness, right sided weakness, seizure, speech problems, tingling, tremors, weakness, others Musculoskeletal: denies: back pain, gout, joint pain, joint swelling, muscle pain, muscle stiffness, neck pain, others Integumetry: denies: bruises, change in color, change in hair/nails, dryness, laceration, lesions, lumps, rash, wounds, others Allergic/Immunocompromised: denies: Difficulty Healing, Frequent Infections, Hives, Itching, others Hematologic/Lymphatic: denies: anemia, blood clots, easy bleeding, easy bruising, swollen glands, others Endocrine: denies: excessive hunger, excessive sweating, excessive thirst, excessive urination, flushing, intolerance to cold, intolerance to heat, unexplained weight gain, unexplained weight loss, others Psychiatric: denies: anxiety, bipolar disorder, depression, hopeless, panic disorder, schizophrenia, sleepless, suicidal, others Physical Exam General Appearance: No Apparent Distress, Normal HEENT: Normal ENT Inspection, Pharynx Normal, TMs Normal Neck: Full Range of Motion, Non-Tender, Normal, Normal Inspection Respiratory: Chest Non-Tender, Lungs Clear, No Accessory Muscle Use, No Respiratory Distress, Normal Breath Sounds Cardiovascular: No Edema, No JVD, No Murmur, No Gallop, Normal Peripheral Pulses, Regular Rate/Rhythm Breast Exam: Deferred Gastrointestinal: No Organomegaly, Non Tender, No Pulsatile Mass, Normal Bowel Sounds, Soft Genitalia: Deferred Pelvic: Deferred Rectal: Deferred Extremities: No calf tenderness, Normal capillary refill, Normal inspection, Normal range of motion, Non-tender, No pedal edema Musculoskeletal : Apperance: Normal Neurologic: Alert, director water and waste services II-XII nml as Tested, No Motor Deficits, Normal Affect, Normal Mood, No Sensory Deficits Cerebellar Function: Normal Reflexes: Normal Skin: Dry, Normal Color, Warm Lymphatic: No Adenopathy EKG EKG : Pulse Rate (adult): 64 Cardiac Rhythm: NSR Was a procedure done? Was a procedure done?: No Differential Dx Differential Diagnosis: Anxiety, Asthma, Bronchitis, Respiratory Distress X-Ray, Labs, Meds, VS Vital Signs Date Time Temp Pulse Resp B/P (MAP) Pulse Ox O2 Delivery O2 Flow Rate FiO2 10/11/25 23:45 64 10/11/25 23:32 20 97 Room Air* 0 21 10/11/25 21:54 64 10/11/25 21:44 98.1 71 24 207/116 100 98.1 Lab Test 10/11/25 23:54 10/11/25 22:53 Range/Units Troponin I High Sensitivity < 3 L < 3 L </=34 ng/L White Blood Count 6.9 4.4-10.8 10^3/uL Red Blood Count 4.61 4.0-5.20 10^6/uL Hemoglobin 14.1 12.2-16.2 g/dL Hematocrit 41.7 36.0-46.0 % Mean Corpuscular Volume 90.4 80.0-100.0 fL Mean Corpuscular Hemoglobin 30.6 28.0-32.0 pg Mean Corpuscular Hemoglobin Concent 33.8 32.0-36.0 g/dL Red Cell Distribution Width 13.4 11.8-14.3 % Platelet Count 257 140-450 10^3/uL Mean Platelet Volume 7.8 6.9-10.8 fL Neutrophils (%) (Auto) 68.3 37.0-80.0 % Lymphocytes (%) (Auto) 24.4 10.0-50.0 % Monocytes (%) (Auto) 5.3 0.0-12.0 % Eosinophils (%) (Auto) 1.3 0.0-7.0 % Basophils (%) (Auto) 0.7 0.0-2.0 % Neutrophils # (Auto) 4.7 1.6-8.6 10 ^3/uL Lymphocytes # (Auto) 1.7 0.4-5.4 10 ^3/uL Monocytes # (Auto) 0.4 0-1.3 10 ^3/uL Eosinophils # (Auto) 0.1 0-0.8 10 ^3/uL Basophils # (Auto) 0 0-0.2 10 ^3/uL Nucleated Red Blood Cells 0.1 % Sodium Level 139 136-145 mmol/L Potassium Level 3.6 3.5-5.1 mmol/L Chloride Level 105 98-107 mmol/L Carbon Dioxide Level 27 20-31 mmol/L Anion Gap 7 5-15 Blood Urea Nitrogen 8 L 9-23 mg/dL Creatinine 1.00 0.550-1.02 mg/dL Glomerular Filtration Rate Calc 70 >90 mL/min BUN/Creatinine Ratio 8.0 L 10.0-20.0 Serum Glucose 85 74-106 mg/dL Calcium Level 9.5 8.7-10.4 mg/dL Total Bilirubin 0.8 0.2-1.0 mg/dL Aspartate Amino Transferase (AST) 31 13-40 U/L Alanine Aminotransferase (ALT) 24 7-40 U/L Alkaline Phosphatase 89 46-116 U/L B-Type Natriuretic Peptide 21.71 0-100 pg/mL Total Protein 7.7 5.7-8.2 g/dL Albumin 4.4 3.2-4.8 g/dL Current Medications Medications (Trade) Dose Ordered Sig/Ana Route Start Time Stop Time Status Last Admin Albuterol (Ventolin Medneb) 5 mg ONCE ONCE NEB 10/11/25 23:15 10/11/25 23:16 DC 10/11/25 23:32 Ipratropium [place] (Atrovent Medneb) 0.5 mg ONCE ONCE NEB 10/11/25 23:15 10/11/25 23:16 DC 10/11/25 23:32 Time of 1ST Reevaluation: 23:43 Reevaluation 1ST: Unchanged Patient Education/Counseling: Diagnosis, Treatment Family Education/Counseling: No Family Present SEPSIS Sepsis Screen Date sepsis recognized/suspect: Oct 11, 2025 Time Sepsis recognized/suspect: 2146 Recent Procedure: No On Antibiotic Therapy: No Respiratory Rate >20: Yes Heart Rate >90: No Temp<36 C (96.8 F) or >38.3 C: No SBP <90 or MAP <65 mmHG: No New Acute Mental Status Change: No Is the patient on CPAP, BIPAP,: No Physician Orders Chest Portable (10/11/25 21:53) Urinalysis (10/11/25 21:53) Troponin-I Hs (10/12/25 00:53) Electrocardigram (10/11/25 21:53) Electrocardigram (10/11/25 22:53) Electrocardigram (10/12/25 00:53) Vital Signs Date Time Temp Pulse Resp B/P (MAP) Pulse Ox O2 Delivery O2 Flow Rate FiO2 10/11/25 23:45 64 10/11/25 23:32 20 97 Room Air* 0 21 10/11/25 21:54 64 10/11/25 21:44 98.1 71 24 207/116 100 98.1 Laboratory Tests Test 10/11/25 22:53 White Blood Count 6.9 10^3/uL (4.4-10.8) Medications Medications Dose Ordered Sig/Ana Route Start Time Stop Time Status Last Admin Dose Admin Albuterol 5 mg ONCE ONCE NEB 10/11/25 23:15 10/11/25 23:16 DC 10/11/25 23:32 Ipratropium [place] 0.5 mg ONCE ONCE NEB 10/11/25 23:15 10/11/25 23:16 DC 10/11/25 23:32 Departure 1 Departure Time of Disposition: 00:35 Impression: Primary Impression: Respiratory failure with hypoxia Additional Impressions: Asthma exacerbation Paroxysmal atrial fibrillation Accelerated hypertension Diastolic heart failure Disposition: ADMITTED INPATIENT Admit to: Tele Condition: Guarded Comments 45-year-old female with a history of hypertension and atrial fibrillation and asthma now with shortness of breath and hypertension. Patient was given breathing treatment and Lasix and aspirin. She had some increased prominence of the pulmonary vessels on chest x-ray. I suspect some of pulmonary hypertension. I suspect diastolic congestive heart failure. Patient will need to be admitted for supportive care and further workup. Critical Care Note Critical Care Time?: Yes (35 min-critical care time only) Critical care comment: Total critical care time: Approximately 36 minutes Due to a high probability of clinically significant, life threatening deterioration, the patient required my highest level of preparedness to intervene emergently and I personally spent this critical care time directly and personally managing the patient. This critical care time included obtaining a history; examining the patient; pulse oximetry; ordering and review of studies; arranging urgent treatment with development of a management plan; evaluation of patient's response to treatment; frequent reassessment; and, discussions with other providers. This critical care time was performed to assess and manage the high probability of imminent, life-threatening deterioration that could result in multi-organ failure. It was exclusive of separately billable procedures and treating other patients. Stability Stability form required: No Heart Score Heart Score: Heart Score Response (Comments) Value History Moderate Suspicious 1 EKG Repolarization Disturb 1 Age 45-64 1 Risk Factors >3 or Hx ASHD 2 Troponin Normal limit 0 Total 5 I personally scribed for ANU FELDMAN MD [email or web address] on 10/11/25 at 23:45. Electronically submitted by Jozef Morales ([email or web address]). ANU FELDMAN MD Oct 11, 2025 23:45
[2025-10-12] MEDS: predniSONE 20 MG TAB PO ONE ×2 (01:00→01:05)
[2025-10-12 01:36] LABS: Urine Protein, UAD Negative (Negative)
[2025-10-12] MEDS ORDERED: NITROGLYCERIN 0.4 MG SL TAB SL PRN (05:30)
[2025-10-12] MEDS ORDERED: ONDANSETRON HCL 4 MG/2 ML VIAL IV PRN (05:30)
[2025-10-12] MEDS ORDERED: DOCUSATE SOD 100 MG CAP PO PRN (05:30)
[2025-10-12] MEDS ORDERED: IBUPROFEN 600 MG TAB PO PRN (05:30)
--- NOTE | 2025-10-12 05:31 | DVHHP2 ---
History of Present Illness Reason for Visit: Respiratory failure with hypoxia History of Present Illness The patient is a 45-year-old female with multiple past medical history including AFib, asthma, cancer, seizures, and hypertension who presented to [facility] ED with complaint of shortness of breaths. Patient reports that she was washing her son's basketball game when she started experiencing shortness of breaths associated with chest tightness, getting worse that prompted this visit. Patient was seen and evaluated in the ED, laboratory data shows WBC 6.9, platele ts 257, sodium 139, potassium 3.6, BUN 8, creatinine 1.00, GFR 70, glucose 85, calcium 9.5, troponin 3, blood pressure 207/116 trending down to 157/105, heart rate 72, temperature 98.2 F, O2 saturation 98% on room air. Please see medication orders section in the computer. On my assessment, patient denied chest pain, no headache, dizziness, diaphoresis, currently on oxygen, no nausea, vomiting, fever, no chills. Patient was admitted for further evaluation and medical management. Past Medical History AFIB, Asthma, Cancer, GERD, HTN, Seizures, Thyroid, TIA Past Surgical History Appendectomy, Hysterectomy, Tubal Ligation Family History Reviewed, noncontributory to the management of this case. Past Social History The patient lives at home, denies smoking, alcohol or illicit drugs abuse. Review of Systems Constitutional: Yes: Weakness; No: Fever, Chills, Sweats, Malaise, Other Eyes: No: Pain, Vision change, Conjunctivae inflammation, Eyelid inflammation, Other, Redness ENT: No: Ear pain, Ear discharge, Nose pain, Nose discharge, Nose congestion, Mouth pain, Mouth swelling, Throat pain, Throat swelling, Other Respiratory: Shortness of breath, SOB with excertion, Other (SOB at rest); No: Cough, Dry, Wheezing, Hemoptysis, Pleuritic Pain, Sputum, Wheezing Cardiovascular: No: Chest Pain, Palpitations, Orthopnea, Paroxysmal Noc. Dyspnea, Edema, Lt Headedness, Other Gastrointestinal: No: Nausea, Vomiting, Abdominal Pain, Diarrhea, Constipation, Melena, Hematochezia, Other Genitourinary: No Dysuria, No Frequency, No Incontinence, No Hematuria, No Retention, No Other Musculoskeletal: No: other, neck pain, shoulder pain, arm pain, back pain, hand pain, leg pain, foot pain Skin: No: Rash, Lesions, Jaundice, Bruising, Other Neurological: No: Weakness, Numbness, Incoordination, Change in speech, Confusion, Seizures, Other Allergies: Coded Allergies: Acetaminophen (Verified Allergy, Unknown, 09/06/15) Aspirin (Verified Allergy, Unknown, 11/21/19) Codeine (Verified Allergy, Unknown, 11/21/19) Hydrocodone (Verified Allergy, Unknown, 09/06/15) Hydromorphone (Verified Allergy, Unknown, 11/21/19) Levothyroxine (Verified Allergy, Unknown, 09/06/15) Lisinopril (Verified Allergy, Unknown, 11/21/19) Methadone (Verified Allergy, Unknown, 11/21/19) Morphine (Verified Allergy, Unknown, 09/06/15) Mupirocin (Verified Allergy, Unknown, 11/21/19) Nitrofurantoin (Verified Allergy, Unknown, 09/06/15) Nitroglycerin (Verified Allergy, Unknown, 11/21/19) Penicillins (Verified Allergy, Unknown, 11/21/19) Tramadol (Verified Allergy, Unknown, 11/21/19) Exam Vital Signs Vital Signs Date Time Temp Pulse Resp B/P (MAP) Pulse Ox O2 Delivery O2 Flow Rate FiO2 10/12/25 04:30 98.2 71 20 159/105 (123) 98 98.2 10/12/25 01:09 Room Air 10/11/25 23:32 0 21 General Appearance: Alert, Oriented X3, Cooperative, No acute distress HEENT: Atraumatic, PERRLA, EOMI, Mucous membr. moist/pink Respiratory: Normal air movement, Other (Shortness of breaths) Cardiovascular: Regular rate, Normal S1, Normal S2, No murmurs Abdominal: Normal bowel sounds, Soft, No tenderness, No hepatospenomegaly, No masses Extremities: No clubbing, No cyanosis, No edema, Normal pulses, No tenderness/swelling Skin: No rashes, No significant lesion Neuro: Normal speech, Normal tone, Sensation intact, Cranial nerves 3-12 NL, Reflexes 2+, Other (Generalized weakness) Psych/Mental Status: Mental status NL, Mood NL Labs/Xrays Labs Test 10/11/25 23:54 10/11/25 22:53 10/11/25 22:00 Range/Units Troponin I High Sensitivity < 3 L </=34 ng/L White Blood Count 6.9 4.4-10.8 10^3/uL Red Blood Count 4.61 4.0-5.20 10^6/uL Hemoglobin 14.1 12.2-16.2 g/dL Hematocrit 41.7 36.0-46.0 % Mean Corpuscular Volume 90.4 80.0-100.0 fL Mean Corpuscular Hemoglobin 30.6 28.0-32.0 pg Mean Corpuscular Hemoglobin Concent 33.8 32.0-36.0 g/dL Red Cell Distribution Width 13.4 11.8-14.3 % Platelet Count 257 140-450 10^3/uL Mean Platelet Volume 7.8 6.9-10.8 fL Neutrophils (%) (Auto) 68.3 37.0-80.0 % Lymphocytes (%) (Auto) 24.4 10.0-50.0 % Monocytes (%) (Auto) 5.3 0.0-12.0 % Eosinophils (%) (Auto) 1.3 0.0-7.0 % Basophils (%) (Auto) 0.7 0.0-2.0 % Neutrophils # (Auto) 4.7 1.6-8.6 10 ^3/uL Lymphocytes # (Auto) 1.7 0.4-5.4 10 ^3/uL Monocytes # (Auto) 0.4 0-1.3 10 ^3/uL Eosinophils # (Auto) 0.1 0-0.8 10 ^3/uL Basophils # (Auto) 0 0-0.2 10 ^3/uL Nucleated Red Blood Cells 0.1 % Sodium Level 139 136-145 mmol/L Potassium Level 3.6 3.5-5.1 mmol/L Chloride Level 105 98-107 mmol/L Carbon Dioxide Level 27 20-31 mmol/L Anion Gap 7 5-15 Blood Urea Nitrogen 8 L 9-23 mg/dL Creatinine 1.00 0.550-1.02 mg/dL Glomerular Filtration Rate Calc 70 >90 mL/min BUN/Creatinine Ratio 8.0 L 10.0-20.0 Serum Glucose 85 74-106 mg/dL Calcium Level 9.5 8.7-10.4 mg/dL Total Bilirubin 0.8 0.2-1.0 mg/dL Aspartate Amino Transferase (AST) 31 13-40 U/L Alanine Aminotransferase (ALT) 24 7-40 U/L Alkaline Phosphatase 89 46-116 U/L B-Type Natriuretic Peptide 21.71 0-100 pg/mL Total Protein 7.7 5.7-8.2 g/dL Albumin 4.4 3.2-4.8 g/dL Urine Color Colorless Yellow Urine Clarity Clear Clear Urine pH 7.5 5.0-9.0 Urine Specific [place] 1.011 1.001-1.035 Urine Protein Negative Negative Urine Ketones Negative Negative Urine Blood Negative Negative /uL Urine Nitrite Negative Negative Urine Bilirubin Negative Negative Urine Urobilinogen Normal Negative mg/dL Urine Leukocyte Esterase Negative Negative /uL Urine RBC None seen 0 - 4 /hpf Urine Microscopic WBC < 1 0-5 /HPF Urine Squamous Epithelial Cells Few <5 /hpf Urine Bacteria None seen None Seen /hpf Urine Glucose Normal Normal mg/dL PATIENT: CIARA ESQUEDA LYNNACCT: [id number] UNIT: [id number] : 1980 LOC: ER ROOM / BED: / AGE / SEX: 45 / F ADM STATUS: REG ER SERVICE 52 ORDERING PHYSICIAN: ANU FELDMAN MD PROCEDURE(s): CXRP - CHEST PORTABLE REASON: CHEST PAIN/SOB ORDER NUMBER(s): [id number], ACCESSION NUMBER(s): [id number] INDICATION: CHEST PAIN/SOB TECHNIQUE: Frontal view of the chest. COMPARISON: XY CHEST TWO VIEWS ROUTINE on DOS: 04/22/25, XY CHEST PORTABLE on DOS: 01/12/25, XY CHEST PORTABLE on DOS: 10/08/24, XY CHEST PORTABLE on DOS: 09/26/24, XY CHEST PORTABLE on DOS: 03/19/24 FINDINGS/IMPRESSION: Mild prominence of the interstitial markings. The cardiomediastinal silhouette is unchanged. No pleural effusion or pneumothorax. No acute osseous abnormality. SEPSIS Sepsis Screen Date sepsis recognized/suspect: Oct 12, 2025 Time Sepsis recognized/suspect: 043 Recent Procedure: No On Antibiotic Therapy: No Respiratory Rate >20: No Heart Rate >90: No Temp<36 C (96.8 F) or >38.3 C: No SBP <90 or MAP <65 mmHG: No New Acute Mental Status Change: No Is the patient on CPAP, BIPAP,: No Physician Orders Chest Portable (10/11/25 21:53) Electrocardigram (10/11/25 21:53) Electrocardigram (10/11/25 22:53) Electrocardigram (10/12/25 00:53) Complete Blood Count (10/12/25 05:21) Comprehensive Metabolic Panel (10/12/25 05:21) Amlodipine Tablet (Norvasc Tablet) (10/12/25 05:30) Amlodipine Tablet (Norvasc Tablet) (10/12/25 10:00) Metoprolol Tartrate Tablet (Lopressor Ta (10/12/25 10:00) Losartan Tablet (Cozaar Tablet) (10/12/25 10:00) Famotidine Injection (Pepcid Injection) (10/12/25 10:00) Methylprednisolone Sod Succ (Solu Medrol (10/12/25 10:00) Ibuprofen Tablet (Motrin Tablet) (10/12/25 05:30) Apixaban (Eliquis) (10/12/25 10:00) Admit (10/12/25 05:21) Allergies (10/12/25 05:21) Code Status (10/12/25 05:21) 0.9% Ns 1000 Ml (10/12/25 05:30) Oxygen Per Hour (10/12/25 05:21) Ondansetron Hcl (Zofran) (10/12/25 05:30) Docusate Sodium Capsule (Colace Capsule) (10/12/25 05:30) Fall Risk Precautions In Place QSHIFT (10/12/25 05:21) Complete Blood Count (10/13/25 04:00) Comprehensive Metabolic Panel (10/13/25 04:00) Cardiac Diet-2gna,Lofat,Lochol (10/12/25 Breakfast) Condition: Serious (10/12/25 05:21) Maintain Bed Rest (10/12/25 05:21) Sequential Compression Device (10/12/25 ) Nitroglycerin Sublingual (Ntrostat Subli (10/12/25 05:30) Stat Ekg For Chest Pain (10/12/25 05:21) Notify Md Of Changes From Base (10/12/25 05:21) Extractions Technician For 24 Hours (10/12/25 05:21) Emergency Dysrhythmia Protocol (10/12/25 05:21) Rhythm Strips Once Every Shift (10/12/25 05:21) Oxygen By Nasal Cannula (10/12/25 05:21) Vital Signs Date Time Temp Pulse Resp B/P (MAP) Pulse Ox O2 Delivery O2 Flow Rate FiO2 10/12/25 04:30 98.2 71 20 159/105 (123) 98 98.2 10/12/25 01:09 72 16 100 Room Air 10/12/25 00:56 98.0 72 16 172/98 (122) 100 98.0 10/12/25 00:56 72 10/11/25 23:45 64 10/11/25 23:32 20 97 Room Air* 0 21 10/11/25 21:54 64 10/11/25 21:44 98.1 71 24 207/116 100 98.1 Laboratory Tests Test 10/11/25 22:53 White Blood Count 6.9 10^3/uL (4.4-10.8) Medications Medications Dose Ordered Sig/Ana Route Start Time Stop Time Status Last Admin Dose Admin Albuterol 5 mg ONCE ONCE NEB 10/11/25 23:15 10/11/25 23:16 DC 10/11/25 23:32 5 MG Ipratropium [place] 0.5 mg ONCE ONCE NEB 10/11/25 23:15 10/11/25 23:16 DC 10/11/25 23:32 0.5 MG Prednisone 40 mg ONCE ONCE PO 10/11/25 23:15 10/11/25 23:16 DC 10/12/25 01:05 40 MG Assessment/Plan Assessment/Plan Respiratory failure with hypoxia Hypertensive urgency Asthma with acute exacerbation Paroxysmal atrial fibrillation Generalized weakness Plan 1. Admit to telemetry unit 2. Breathing treatment 3. Pain control management 4. Management of fluids and electrolytes 5. Consultation for hospitalist 6. Diagnostic tests chest x-ray 7. DVT prophylaxis -on Eliquis 8. Repeat labs CBC, CMP in a.m. 9. Continue with current medical management 10. Treatment plan discussed with patient and RN. Patient verbalized understanding. Plan discussed with: Patient, Other (RN) My Orders Orders - CHRISTOPHER ELLIOTT DNP Procedure Category Date Status Time Complete Blood Count LAB 10/12/25 Verified 05:21 Comprehensive LAB 10/12/25 Verified Metabolic Panel 05:21 Amlodipine Tablet [facility] 10/12/25 Verified (Norvasc Tablet) 05:30 Amlodipine Tablet [facility] 10/12/25 Verified (Norvasc Tablet) 10:00 Metoprolol Tartrate [facility] 10/12/25 Verified Tablet (Lopressor Ta 10:00 Losartan Tablet [facility] 10/12/25 Verified (Cozaar Tablet) 10:00 Famotidine Injection [facility] 10/12/25 Verified (Pepcid Injection) 10:00 Methylprednisolone [facility] 10/12/25 Verified Sod Succ (Solu Medrol 10:00 Ibuprofen Tablet [facility] 10/12/25 Verified (Motrin Tablet) 05:30 Apixaban (Eliquis) [facility] 10/12/25 Verified 10:00 Admit ADMIT 10/12/25 Verified 05:21 Allergies [facility] 10/12/25 Verified 05:21 Code Status CODE 10/12/25 Verified 05:21 0.9% Ns 1000 Ml [facility] 10/12/25 Verified 05:30 Oxygen Per Hour RT 10/12/25 Verified 05:21 Ondansetron Hcl [facility] 10/12/25 Verified (Zofran) 05:30 Docusate Sodium [facility] 10/12/25 Verified Capsule (Colace 05:30 Fall Risk Precautions [facility] 10/12/[address] 05:21 Complete Blood Count LAB 10/13/25 Verified 04:00 Comprehensive LAB 10/13/25 Verified Metabolic Panel 04:00 Cardiac DIET 10/12/25 Verified Diet-2gna,Lofat,Lochol Breakfast Condition: Serious [facility] 10/12/25 Verified 05:21 Maintain Bed Rest [facility] 10/12/25 Verified 05:21 Sequential [facility] 10/12/25 Verified Compression Device Nitroglycerin [facility] 10/12/25 Verified Sublingual (Ntrostat 05:30 Stat Ekg For Chest [facility] 10/12/25 Verified Pain 05:21 Notify Md Of Changes [facility] 10/12/25 Verified From Base 05:21 Extractions Technician For [facility] 10/12/25 Verified 24 Hours 05:21 Emergency Dysrhythmia [facility] 10/12/25 Verified Protocol 05:21 Rhythm Strips Once [facility] 10/12/25 Verified Every Shift 05:21 Oxygen By Nasal RT 10/12/25 Verified Cannula 05:21 Problem List: (1) Respiratory failure with hypoxia (2) Hypertensive urgency (3) Asthma with acute exacerbation (4) Paroxysmal atrial fibrillation (5) Generalized weakness Date of Service: Oct 12, 2025 Billing Provider: CHRISTOPHER ELLIOTT DNP Common Visit Codes: [id number] INP/OBS CARE (HIGH) CHRISTOPHER ELLIOTT DNP Oct 12, 2025 05:31
[2025-10-12 06:11] LABS: Hematocrit 40.0 % (36.0-46.0); Hemoglobin 13.8 g/dL (12.2-16.2); Mean Corpuscular Hemoglobin 31.1 pg (28.0-32.0); Mean Corpuscular Volume 90.1 fL (80.0-100.0); Nucleated Red Blood Cells % 0.0 %
[2025-10-12 06:22] LABS: Alanine Aminotransferase 23 U/L (7-40); Albumin 4.4 g/dL (3.2-4.8); Alkaline Phosphatase 92 U/L (46-116); Anion Gap 9 (5-15); BUN/Creatinine Ratio 7.3 (10.0-20.0); Calcium 9.4 mg/dL (8.7-10.4); Carbon Dioxide 24 mmol/L (20-31); Chloride 106 mmol/L (98-107); Potassium 3.6 mmol/L (3.5-5.1); Sodium 139 mmol/L (136-145); Total Protein 7.5 g/dL (5.7-8.2)
[2025-10-12 06:23] LABS: Bilirubin, Total 0.6 mg/dL (0.2-1.0); Blood Urea Nitrogen 8 mg/dL (9-23); Glucose 125 mg/dL (74-106)
[2025-10-12 07:26] VITALS: BP 159/105; PULSE 71; RESP 20; O2SAT 98
[2025-10-12] MEDS: SODIUM CHLORIDE 0.9% 1,000 ML IV SCH ×2 (07:58→18:38)
[2025-10-12] MEDS: ALBUTEROL SULF 2.5 MG/0.5ML(0.5%) NEB SOLN NEB PRN (10:50)
[2025-10-12] MEDS: IPRATROPIUM BROM 0.5 MG/2.5ML INH SOL NEB PRN (10:50)
[2025-10-12] MEDS: methylPREDNISolone SOD SUCC 40 MG/ML VL IV SCH (11:05)
[2025-10-12] MEDS: APIXABAN 5 MG TAB PO SCH (11:06)
[2025-10-12] MEDS: METOPROLOL TARTRATE 25 MG TAB PO SCH (11:06)
[2025-10-12] MEDS: FAMOTIDINE (10MG/ML) 2ML VL IV SCH (11:07)
[2025-10-12] MEDS: LOSARTAN POTASSIUM 50 MG TAB PO SCH (11:07)
[2025-10-12 13:47] VITALS: BP 157/96; PULSE 72; RESP 20; TEMP 98.3; O2SAT 96
[2025-10-12 17:00] VITALS: BP 144/104; PULSE 73; RESP 20; TEMP 98.5; O2SAT 96
[2025-10-12] MEDS ORDERED: CLOT1CRE51 TOP (17:36)
[2025-10-12] MEDS ORDERED: FLUT0.05 NAS (17:36)
[2025-10-12] MEDS ORDERED: LOSA-535 PO (17:36)
[2025-10-12] MEDS ORDERED: RIZA10TA22 OR (17:42)
[2025-10-12] MEDS ORDERED: LIDO1.8P EX (17:42)
[2025-10-12] MEDS ORDERED: TIOT17SP IN (17:42)
[2025-10-12] MEDS ORDERED: CHOL20007 PO (17:42)
[2025-10-12] MEDS ORDERED: IPRAAER6 IN (17:42)
[2025-10-12] MEDS ORDERED: METO100C PO (17:42)
--- NOTE | 2025-10-12 18:14 | DVHPN2 ---
Subjective Patient complains of right-sided pleuritic discomfort radiation to the right shoulder. Oxygenating normally on room air. Denies any other complaints. Changes from previous H/P or p: No Changes Eyes: No Pain, No Vision change, No Conjunctivae inflammation, No Eyelid inflammation, No Other, No Redness ENT: No Ear pain, No Ear discharge, No Nose pain, No Nose discharge, No Nose congestion, No Mouth pain, No Mouth swelling, No Throat pain, No Throat swelling, No Other Cardiovascular: No Chest Pain, No Palpitations, No Orthopnea, No Paroxysmal Noc. Dyspnea, No Edema, No Lt Headedness, No Other Respiratory: No Cough, No Dry; Shortness of breath, SOB with excertion; No Wheezing, No Hemoptysis, No Pleuritic Pain, No Sputum; Other (SOB at rest) Gastrointestinal: No Nausea, No Vomiting, No Abdominal Pain, No Diarrhea, No Constipation, No Melena, No Hematochezia, No Other Genitourinary: No Dysuria, No Frequency, No Incontinence, No Hematuria, No Retention, No Other Musculoskeletal: No other, No neck pain, No shoulder pain, No arm pain, No back pain, No hand pain, No leg pain, No foot pain Skin: No Rash, No Lesions, No Jaundice, No Bruising, No Other Objective Vitals Vital Signs Date Time Temp Pulse Resp B/P (MAP) Pulse Ox O2 Delivery O2 Flow Rate FiO2 10/12/25 13:47 98.3 72 20 157/96 (116) 96 98.3 10/12/25 10:50 Room Air* 0 21 Exam Alert awake oriented x3. Obese female in bed without distress. HEENT neck supple no JVD. Heart regular rate and rhythm S1-S2. Lungs fair air movement without rales or wheezing. Abdomen obese soft positive bowel sounds. Extremities no edema positive pulses. Medications Current Medications Medications Dose Ordered Sig/Ana Route Start Time Stop Time Status Last Admin Dose Admin Amlodipine Besylate 5 mg DAILY PO 10/12/25 10:00 10/12/25 11:06 5 MG Metoprolol Tartrate 25 mg BID PO 10/12/25 10:00 10/12/25 11:06 25 MG Losartan Potassium 50 mg DAILY PO 10/12/25 10:00 10/12/25 11:07 50 MG Famotidine 20 mg Q12HR IV 10/12/25 10:00 10/12/25 11:07 20 MG Methylprednisolone Sodium Succinate 40 mg BID IV 10/12/25 10:00 10/12/25 11:05 40 MG Ibuprofen 600 mg Q6HP PRN PO 10/12/25 05:30 Apixaban 5 mg BID PO 10/12/25 10:00 10/12/25 11:06 5 MG Sodium Chloride 1,000 ml @ 60 mls/hr [id number] IV 10/12/25 05:30 10/12/25 07:58 60 MLS/HR Ondansetron HCl 4 mg Q4HP PRN IV 10/12/25 05:30 Docusate Sodium 100 mg BIDPRN PRN PO 10/12/25 05:30 Nitroglycerin 0.4 mg Q5MINP PRN SL 10/12/25 05:30 Albuterol 2.5 mg Q4HPRN PRN NEB 10/12/25 05:30 10/12/25 10:50 2.5 MG Ipratropium [place] 0.5 mg Q4HPRN PRN NEB 10/12/25 05:30 10/12/25 10:50 0.5 MG Atorvastatin Calcium 40 mg HS PO 10/12/25 22:00 Laboratory Results Laboratory Tests 10/12/25 05:56 Chemistry Test 10/11/25 22:53 10/12/25 05:56 Albumin 4.4 g/dL (3.2-4.8) 4.4 g/dL (3.2-4.8) Calcium Level 9.5 mg/dL (8.7-10.4) 9.4 mg/dL (8.7-10.4) Total Protein 7.7 g/dL (5.7-8.2) 7.5 g/dL (5.7-8.2) Cardiac Markers Test 10/11/25 22:53 B-Type Natriuretic Peptide 21.71 pg/mL (0-100) LFT Test 10/11/25 22:53 10/12/25 05:56 Alanine Aminotransferase (ALT) 24 U/L (7-40) 23 U/L (7-40) Alkaline Phosphatase 89 U/L (46-116) 92 U/L (46-116) Aspartate Amino Transferase (AST) 31 U/L (13-40) 27 U/L (13-40) Total Bilirubin 0.8 mg/dL (0.2-1.0) 0.6 mg/dL (0.2-1.0) Urinalysis Test 10/11/25 22:00 Urine Color Colorless (Yellow) Urine Clarity Clear (Clear) Urine pH 7.5 (5.0-9.0) Urine Specific [place] 1.011 (1.001-1.035) Urine Protein Negative (Negative) Urine Ketones Negative (Negative) Urine Blood Negative /uL (Negative) Urine Nitrite Negative (Negative) Urine Bilirubin Negative (Negative) Urine Urobilinogen Normal mg/dL (Negative) Urine Leukocyte Esterase Negative /uL (Negative) Urine RBC None seen /hpf (0 - 4) Urine Microscopic WBC < 1 /HPF (0-5) Urine Squamous Epithelial Cells Few /hpf (<5) Urine Bacteria None seen /hpf (None Seen) Urine Glucose Normal mg/dL (Normal) Labs and/or images reviewed: Labs reviewed by me Assessment/Plan Assessment/Plan Given the her pleuritic compliant with a obesity risk factors I will order a CT angiogram of the chest to rule out PE. Discussed contrast induced nephropathy in the benefits. Patient verbalized understanding of this and agreed to proceed with a CT angiogram of the chest today. Meantime we will continue the Eliquis she is on. Continue rest of supportive care and treatment. Follow clinical management per clinical course. Discussed with the patient's/nurse regarding care plan at bedside. Plan discussed with: Patient, Other Problem List: (1) Acute chest pain (2) Hypertension (3) Paroxysmal atrial fibrillation (4) Asthma exacerbation (5) Generalized weakness Date of Service: Oct 12, 2025 Billing Provider: MELANIA NGUYỄN MD Common Visit Codes: [id number] INP/OBS CARE(HIGH) MELANIA NGUYỄN MD Oct 12, 2025 18:14
[2025-10-12 20:00] VITALS: PULSE 85; RESP 14; O2SAT 95
[2025-10-12 21:00] VITALS: BP 125/75; PULSE 87; RESP 14; TEMP 98.5; O2SAT 95
[2025-10-12] MEDS: METOPROLOL TARTRATE 25 MG TAB ONE (21:26)
[2025-10-12] MEDS: methylPREDNISolone SOD SUCC 40 MG/ML VL ONE (21:26)
[2025-10-12] MEDS: ATORVASTATIN 20 MG TAB ONE (21:26)
[2025-10-12] MEDS: APIXABAN 5 MG TAB ONE (21:26)
[2025-10-12] MEDS: FAMOTIDINE (10MG/ML) 2ML VL IV ONE (21:28)
[2025-10-12] MEDS: ATORVASTATIN 20 MG TAB PO SCH (21:32)
[2025-10-13] VITALS (13 sets, daily range): BP systolic 134–151; BP diastolic 66–93; PULSE 71–87; RESP 16–20; TEMP 97.8–98.4; O2SAT 95–100
[2025-10-13] MEDS: IOHEXOL 350 MG/ML 100ML IJ ONE (04:46)
[2025-10-13 05:41] LABS: Hematocrit 39.6 % (36.0-46.0); Hemoglobin 13.3 g/dL (12.2-16.2); Mean Corpuscular Hemoglobin 30.5 pg (28.0-32.0); Mean Corpuscular Volume 91.0 fL (80.0-100.0); Nucleated Red Blood Cells % 0.0 %
[2025-10-13 06:01] LABS: Alanine Aminotransferase 18 U/L (7-40); Albumin 3.9 g/dL (3.2-4.8); Alkaline Phosphatase 79 U/L (46-116); Anion Gap 9 (5-15); Calcium 9.3 mg/dL (8.7-10.4); Carbon Dioxide 22 mmol/L (20-31); Potassium 4.0 mmol/L (3.5-5.1); Sodium 140 mmol/L (136-145); Total Protein 6.8 g/dL (5.7-8.2)
[2025-10-13 06:02] LABS: BUN/Creatinine Ratio 7.7 (10.0-20.0); Bilirubin, Total 0.6 mg/dL (0.2-1.0); Chloride 109 mmol/L (98-107); Glucose 144 mg/dL (74-106)
[2025-10-13 06:04] LABS: Blood Urea Nitrogen 8 mg/dL (9-23)
--- NOTE | 2025-10-13 10:10 | ECG ---
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
[2025-10-13 12:34] LABS: Triglycerides 52 mg/dL (< 150)
[2025-10-13 12:36] LABS: Cholesterol 155 mg/dL (< 200); HDL Cholesterol 52 mg/dL (40-59)
[2025-10-13 13:16] LABS: Beta HCG, Quantitative < 0.0 mIU/mL (1.5-4.2)
[2025-10-13 13:18] LABS: Thyroid Stimulating Hormone 0.32 uIU/mL (0.55-4.78)
[2025-10-13] MEDS ORDERED: FAMOTIDINE (10MG/ML) 2ML VL IV ONE (14:30)
[2025-10-13] MEDS ORDERED: diphenhydrAMINE HCL 50 MG/1 ML VL IV ONE (14:30)
[2025-10-13] MEDS ORDERED: methylPREDNISolone SOD SUCC 125 MG/2 ML VL IV ONE (14:30)
[2025-10-13 14:32] LABS: COVID19 ANTIGEN SOFIA FIA NEGATIVE (NEGATIVE)
[2025-10-13 14:47] LABS: Amphetamine Screen, Urine Neg (NEGATIVE)
[2025-10-13 14:48] LABS: Barbiturate Scree,Urine Neg (NEGATIVE); Benzodiazephine Screen, Urine Neg (NEGATIVE); Cannabinoid Screen, Urine Neg (NEGATIVE); Cocaine Screen, Urine Neg (NEGATIVE); Opiate Scree,Urine Neg (NEGATIVE); Phencyclidine Screen, Urine Neg (NEGATIVE)
--- NOTE | 2025-10-13 16:21 | DVHPN2 ---
Subjective Patient's initially presented to the hospital with the increasing shortness of breaths. CT angio was ordered but patient's D-dimer is negative. Patient is currently on room air. Changes from previous H/P or p: No Changes Eyes: No Pain, No Vision change, No Conjunctivae inflammation, No Eyelid inflammation, No Other, No Redness ENT: No Ear pain, No Ear discharge, No Nose pain, No Nose discharge, No Nose congestion, No Mouth pain, No Mouth swelling, No Throat pain, No Throat swelling, No Other Cardiovascular: No Chest Pain, No Palpitations, No Orthopnea, No Paroxysmal Noc. Dyspnea, No Edema, No Lt Headedness, No Other Respiratory: No Cough, No Dry; Shortness of breath, SOB with excertion; No Wheezing, No Hemoptysis, No Pleuritic Pain, No Sputum; Other (SOB at rest) Gastrointestinal: No Nausea, No Vomiting, No Abdominal Pain, No Diarrhea, No Constipation, No Melena, No Hematochezia, No Other Genitourinary: No Dysuria, No Frequency, No Incontinence, No Hematuria, No Retention, No Other Musculoskeletal: No other, No neck pain, No shoulder pain, No arm pain, No back pain, No hand pain, No leg pain, No foot pain Skin: No Rash, No Lesions, No Jaundice, No Bruising, No Other Objective Vitals Vital Signs Date Time Temp Pulse Resp B/P (MAP) Pulse Ox O2 Delivery O2 Flow Rate FiO2 10/13/25 13:34 80 138/56 10/13/25 12:29 98.4 20 98 98.4 10/13/25 10:00 Room Air* 0 21 Intake/Output Intake and Output 10/13/25 07:00 Intake Total 1000 ml Balance 1000 ml Intake Oral 1000 ml # Voids 2 # Bowel Movements 1 Exam HEENT pupils are reactive Neck is supple CV is S1-S2 regular rate and rhythm Respiratory bilateral minimal expiratory wheeze GI positive bowel sound Extremity no edema 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 Medications Current Medications Medications Dose Ordered Sig/Ana Route Start Time Stop Time Status Last Admin Dose Admin Amlodipine Besylate 5 mg DAILY PO 10/12/25 10:00 10/13/25 12:34 5 MG Metoprolol Tartrate 25 mg BID PO 10/12/25 10:00 10/13/25 12:34 25 MG Losartan Potassium 50 mg DAILY PO 10/12/25 10:00 10/13/25 12:33 50 MG Famotidine 20 mg Q12HR IV 10/12/25 10:00 10/13/25 12:33 20 MG Methylprednisolone Sodium Succinate 40 mg BID IV 10/12/25 10:00 10/13/25 12:33 40 MG Ibuprofen 600 mg Q6HP PRN PO 10/12/25 05:30 Apixaban 5 mg BID PO 10/12/25 10:00 10/13/25 12:33 5 MG Ondansetron HCl 4 mg Q4HP PRN IV 10/12/25 05:30 Docusate Sodium 100 mg BIDPRN PRN PO 10/12/25 05:30 Nitroglycerin 0.4 mg Q5MINP PRN SL 10/12/25 05:30 Albuterol 2.5 mg Q4HPRN PRN NEB 10/12/25 05:30 10/12/25 10:50 2.5 MG Ipratropium [place] 0.5 mg Q4HPRN PRN NEB 10/12/25 05:30 10/12/25 10:50 0.5 MG Atorvastatin Calcium 40 mg HS PO 10/12/25 22:00 10/12/25 21:32 40 MG Sodium Chloride 1,000 ml @ 100 mls/hr Q10H IV 10/12/25 18:15 10/13/25 15:13 100 MLS/HR Doxycycline Hyclate 100 ml @ 50 mls/hr Q12H IV 10/13/25 14:45 Laboratory Results Laboratory Tests 10/13/25 04:15 Chemistry Test 10/13/25 04:15 Albumin 3.9 g/dL (3.2-4.8) Calcium Level 9.3 mg/dL (8.7-10.4) Total Protein 6.8 g/dL (5.7-8.2) Coagulation Test 10/13/25 14:43 D-Dimer, Quantitative 0.33 mg/L FEU (0.0-0.49) Lipid panel Test 10/13/25 04:15 Cholesterol Level 155 mg/dL (< 200) HDL Cholesterol 52 mg/dL (40-59) Triglycerides Level 52 mg/dL (< 150) Cardiac Markers Test 10/13/25 04:15 B-Type Natriuretic Peptide 24.58 pg/mL (0-100) LFT Test 10/13/25 04:15 Alanine Aminotransferase (ALT) 18 U/L (7-40) Alkaline Phosphatase 79 U/L (46-116) Aspartate Amino Transferase (AST) 17 U/L (13-40) Total Bilirubin 0.6 mg/dL (0.2-1.0) HgA1c, TSH Test 10/13/25 04:15 Thyroid Stimulating Hormone (TSH) 0.32 uIU/mL (0.55-4.78) L Urinalysis Test 10/11/25 22:00 Urine Color Colorless (Yellow) Urine Clarity Clear (Clear) Urine pH 7.5 (5.0-9.0) Urine Specific [place] 1.011 (1.001-1.035) Urine Protein Negative (Negative) Urine Ketones Negative (Negative) Urine Blood Negative /uL (Negative) Urine Nitrite Negative (Negative) Urine Bilirubin Negative (Negative) Urine Urobilinogen Normal mg/dL (Negative) Urine Leukocyte Esterase Negative /uL (Negative) Urine RBC None seen /hpf (0 - 4) Urine Microscopic WBC < 1 /HPF (0-5) Urine Squamous Epithelial Cells Few /hpf (<5) Urine Bacteria None seen /hpf (None Seen) Urine Glucose Normal mg/dL (Normal) Assessment/Plan Assessment/Plan 45-year-old female with a known history of paroxysmal AFib, chronic asthma, hypertension presented to the hospital with the increasing shortness a breath found to have 1. Acute asthma exacerbation 2. Paroxysmal AFib 3. Hypertension 4. Morbid obesity classII -continue Solu-Medrol, 2D echo cardiology consultation, discharge plan. Plan discussed with: Patient Problem List: (1) Paroxysmal atrial fibrillation (2) Accelerated hypertension Date of Service: Oct 13, 2025 Billing Provider: ALIS LIPSCOMB MD Common Visit Codes: [id number] INP/OBS CARE(HIGH) ALIS LIPSCOMB MD Oct 13, 2025 16:21
[2025-10-13] MEDS: DOXYCYCLINE 100MG/100ML 100 ML IV SCH (18:12)
--- NOTE | 2025-10-13 18:32 | DVHINCON2 ---
Date Seen: Oct 13, 2025 Referring Physician MD [place] Reason for Consultation History of A-fib History of Present Illness This is a pleasant 45-year-old female who presented to emergency room with a chief complaint of chest pain since yesterday. Describes her chest pain as substernal, radiating to the right back area, non provoked, tightness like, and worse with deep inspiration and cough. The patient underwent multiple 12 lead electrocardiogram x2 revealing a sinus rhythm with nonspecific ST segment changes to inferolateral leads. Serial troponin levels are negative. Follows up in the outpatient setting with the primary psychology clinician at [facility] given history of atrial fibrillation undergoing two cardiac ablations in April and September 2023, left atrial appendage closure (Watchman device) in 12/2023, and a cardiac catheterization without catheter based intervention given normal coronaries in 12/2023. Eliquis therapy was discontinued approximately six months ago and she is currently on Plavix and metoprolol XL. Reports last atrial fibrillation event occurred six months ago. Other significant medical history includes BLE DVT/PE with warfarin therapy x6 months in 2003, hypertension, dyslipidemia, asthma, GERD, history of thyroid disease, history of colon cancer with resection, history of small-bowel obstruction, sleep apnea, morbid obesity. Past Medical History Past medical history reviewed. No other significant than mentioned above. Past Surgical History Left atrial appendage closure (Watchman device), 2023 Cardiac ablations x2, 2022 Colon cancer resection x3 Appendectomy Hysterectomy Family History: Arthritis G8 MOTHER Diabetes mellitus G8 FATHER FH: CHF (congestive heart failure) G8 MOTHER FH: kidney failure G8 FATHER Hypertension G8 FATHER Family History Family history reviewed. Social History Denies the use of illicit drugs, alcohol, or tobacco use. Allergies: Coded Allergies: Acetaminophen (Verified Allergy, Unknown, 09/06/15) Aspirin (Verified Allergy, Unknown, 11/21/19) Codeine (Verified Allergy, Unknown, 11/21/19) Hydrocodone (Verified Allergy, Unknown, 09/06/15) Hydromorphone (Verified Allergy, Unknown, 11/21/19) Levothyroxine (Verified Allergy, Unknown, 09/06/15) Lisinopril (Verified Allergy, Unknown, 11/21/19) Methadone (Verified Allergy, Unknown, 11/21/19) Morphine (Verified Allergy, Unknown, 09/06/15) Mupirocin (Verified Allergy, Unknown, 11/21/19) Nitrofurantoin (Verified Allergy, Unknown, 09/06/15) Nitroglycerin (Verified Allergy, Unknown, 11/21/19) Penicillins (Verified Allergy, Unknown, 11/21/19) Tramadol (Verified Allergy, Unknown, 11/21/19) Home Meds Reported Medications Estradiol (Estradiol) 0.05 Mg/24 Hr Dis, 1 PATCH TD QWEEKLY for 84 Days, #12 10/13/25 Hydroxyzine Hcl (Hydroxyzine Hcl) 25 Mg Tab, 1 TAB PO QPM for 30 Days, #30 10/13/25 Tizanidine HCl (Tizanidine Hydrochloride) 2 Mg Cap, 2 CAP PO QPM for 45 Days, #90 10/13/25 Clonidine Hydrochloride (Clonidine Hcl) 0.1 Mg Tab, 1 TAB PO BID PRN for 15 Days, #30 10/13/25 Azelastine Hcl (Azelastine Hcl) 0.1 % Spr, 2 SPRAYS EACHNOSTRI BID for 25 Days, #30 10/13/25 Fluticasone Propionate (Nasal) (Fluticasone Propionate Na) 50 Mcg/Act Spr, 1 SPRAY NA BID for 84 Days, #48 10/13/25 Lidocaine (Ztlido) 1.8 % Pad, 1.8 % EX [id number], PAD 10/12/25 Cholecalciferol (VITAMIN D3) 2,000 Unit Tab, 1 TAB PO DAILY, #30 TAB 5 Refills 10/12/25 Tiotropium [place] Monohydrate (Spiriva Respimat) 2.5 Mcg/Act Spr, 2.5 MCG IN DAILY, SPRAY 10/12/25 Ipratropium-Albuterol (COMBIVENT RESPIMAT) Respimat Aer, 1 IN, AER 10/12/25 Metoprolol Succinate (Kapspargo Sprinkle) 100 Mg Cap, 100 MG PO DAILY, CAP 10/12/25 Rizatriptan Benzoate (RIZATRIPTAN BENZOATE) 10 Mg Tab, 10 MG OR Q2HPRN, TAB 10/12/25 Clopidogrel Bisulfate (Plavix) 75 Mg Tab, 1 TAB PO DAILY for 90 Days, #90 10/12/25 Atorvastatin Calcium (ATORVASTATIN CALCIUM) 40 Mg Tab, 1 TAB PO DAILY for 90 Days, #90 5 Refills 10/12/25 Montelukast Sodium (MONTELUKAST SODIUM) 10 Mg Tab, 1 TAB PO HS for 90 Days, #90 10/12/25 Pantoprazole Sodium Sesquihydr (Protonix) 40 Mg Tab, 1 TAB PO BID for 90 Days, #180 BEFORE MEALS. 10/12/25 Budesonide-Formoterol Fumarate (Breyna 80-4.5 Mcg/Act) 1 Aer Aer, 2 PUFF IN BID for 25 Days, #10.2 10/12/25 Cetirizine Hcl (Kls Aller-Jennifer) 10 Mg Tab, 1 TAB PO DAILY for 90 Days, #90 10/12/25 Clotrimazole (Clotrimazole) 1 % Cre, 1 APPLIC TOP Q12HR for 30 Days, APPLIC 10/12/25 Nifedipine (Nifedipine Er) 60 Mg Tab, 1 TAB PO DAILY for 90 Days, #90 10/12/25 Losartan Potassium (Losartan Potassium) 100 Mg Tab, 100 MG PO HS for 30 Days, MG 10/12/25 Chlorthalidone (Chlorthalidone) 50 Mg Tab, 1 TAB PO DAILY for 60 Days, #60 10/12/25 Discontinued Reported Medications Fluticasone Propionate (Fluticasone Propionate) 0.05 % Cre, 50 MCG ZULEYMA BID for 30 Days, MCG 10/12/25 Chlorthalidone (Chlorthalidone) 25 Mg Tab, 1 TAB PO DAILY 05/04/23 Home Meds Home medications reviewed. Current Medications Current Medications Medications (Trade) Dose Ordered Sig/Ana Route PRN Reason Start Time Stop Time Status Last Admin Atorvastatin Calcium (Lipitor) 40 mg HS PO 10/12/25 22:00 10/12/25 21:32 Doxycycline Hyclate 100 ml @ 50 mls/hr Q12H IV 10/13/25 14:45 Review of Systems Constitutional: No symptom reported Ears, Nose, & Throat: No symptom reported Eyes: No symptom reported Neurological: No symptoms reported Pulmonary/Respiratory: No symptom reported Cardiovascular: Pleuritic chest pain Gastrointestinal: No symptom reported Genitourinary: No symptom reported Musculoskeletal: No symptom reported Skin: No symptom reported Psychiatric: No symptom reported Endocrine: No symptom reported Hemotologic/Lymphatic: No symptom reported Vital Signs Vital Signs Date Time Temp Pulse Resp B/P (MAP) Pulse Ox O2 Delivery O2 Flow Rate FiO2 10/13/25 17:41 98.0 84 18 151/90 (110) 97 98.0 10/13/25 10:00 Room Air* 0 21 Physical Exam General Appearance: Cooperative. Well developed. Morbidly obese. In no acute distress Head Exam: Normal inspection Neck Exam: Normal inspection. Non-tender. Normal alignment Pulmonary/Respiratory: Chest non-tender. Clear bilateral breath sounds Cardiovascular/Chest: Regular rate and rhythm. S1, S2. NSR. No murmurs. No JVD. Peripheral Pulses: 2+ Radial (R). 2+ Radial (L). 2+ Pedal (R). 2+ Pedal (L) Abdominal Exam: Normal bowel sounds. Soft. Nontender. No hepatospenomegaly. No masses Ankle Exam: Negative ankle edema Lower extremities: Negative lower extremity edema Neuro/Mental Status: A&O x4. Coherent Thoughts/Psych: Normal thought pattern. Appropriate mood and affect. Good judgement and insight Appearance: In no acute distress Skin Exam: Normal inspection. Normal color. Warm. Dry Labs/Diagnostic Data Labs Test 10/13/25 14:43 10/13/25 14:16 10/13/25 12:45 10/13/25 04:15 Range/Units D-Dimer, Quantitative 0.33 0.0-0.49 mg/L FEU Urine Opiates Screen Neg NEGATIVE Urine Fentanyl Screen Neg NEGATIVE Urine Barbiturates Screen Neg NEGATIVE Urine Phencyclidine Screen Neg NEGATIVE Urine Amphetamines Screen Neg NEGATIVE Urine Benzodiazepines Screen Neg NEGATIVE Urine Cocaine Screen Neg NEGATIVE Urine Cannabinoids Screen Neg NEGATIVE Influenza Type A Antigen Negative Negative Influenza Type B Antigen Negative Negative SARS-CoV-2 Antigen (Rapid) Negative NEGATIVE White Blood Count 11.7 #H 4.4-10.8 10^3/uL Red Blood Count 4.35 4.0-5.20 10^6/uL Hemoglobin 13.3 12.2-16.2 g/dL Hematocrit 39.6 36.0-46.0 % Mean Corpuscular Volume 91.0 80.0-100.0 fL Mean Corpuscular Hemoglobin 30.5 28.0-32.0 pg Mean Corpuscular Hemoglobin Concent 33.6 32.0-36.0 g/dL Red Cell Distribution Width 14.2 11.8-14.3 % Platelet Count 259 140-450 10^3/uL Mean Platelet Volume 8.1 6.9-10.8 fL Neutrophils (%) (Auto) 92.3 H 37.0-80.0 % Lymphocytes (%) (Auto) 6.1 L 10.0-50.0 % Monocytes (%) (Auto) 1.5 0.0-12.0 % Eosinophils (%) (Auto) 0.0 0.0-7.0 % Basophils (%) (Auto) 0.1 0.0-2.0 % Neutrophils # (Auto) 10.8 H 1.6-8.6 10 ^3/uL Lymphocytes # (Auto) 0.7 0.4-5.4 10 ^3/uL Monocytes # (Auto) 0.2 0-1.3 10 ^3/uL Eosinophils # (Auto) 0 0-0.8 10 ^3/uL Basophils # (Auto) 0 0-0.2 10 ^3/uL Nucleated Red Blood Cells 0.0 % Sodium Level 140 136-145 mmol/L Potassium Level 4.0 3.5-5.1 mmol/L Chloride Level 109 H 98-107 mmol/L Carbon Dioxide Level 22 20-31 mmol/L Anion Gap 9 5-15 Blood Urea Nitrogen 8 L 9-23 mg/dL Creatinine 1.04 H 0.550-1.02 mg/dL Glomerular Filtration Rate Calc 67 >90 mL/min BUN/Creatinine Ratio 7.7 L 10.0-20.0 Serum Glucose 144 H 74-106 mg/dL Calcium Level 9.3 8.7-10.4 mg/dL Total Bilirubin 0.6 0.2-1.0 mg/dL Aspartate Amino Transferase (AST) 17 13-40 U/L Alanine Aminotransferase (ALT) 18 7-40 U/L Alkaline Phosphatase 79 46-116 U/L B-Type Natriuretic Peptide 24.58 0-100 pg/mL Total Protein 6.8 5.7-8.2 g/dL Albumin 3.9 3.2-4.8 g/dL Triglycerides Level 52 < 150 mg/dL Cholesterol Level 155 < 200 mg/dL LDL Cholesterol 91 < 100 mg/dL HDL Cholesterol 52 40-59 mg/dL Thyroid Stimulating Hormone (TSH) 0.32 L 0.55-4.78 uIU/mL Beta HCG, Quantitative < 0.0 L 1.5-4.2 mIU/mL Test 12/27/25 23:54 10/11/25 22:00 Range/Units Troponin I High Sensitivity < 3 L </=34 ng/L Urine Color Colorless Yellow Urine Clarity Clear Clear Urine pH 7.5 5.0-9.0 Urine Specific [place] 1.011 1.001-1.035 Urine Protein Negative Negative Urine Ketones Negative Negative Urine Blood Negative Negative /uL Urine Nitrite Negative Negative Urine Bilirubin Negative Negative Urine Urobilinogen Normal Negative mg/dL Urine Leukocyte Esterase Negative Negative /uL Urine RBC None seen 0 - 4 /hpf Urine Microscopic WBC < 1 0-5 /HPF Urine Squamous Epithelial Cells Few <5 /hpf Urine Bacteria None seen None Seen /hpf Urine Glucose Normal Normal mg/dL Assessment Noncardiac chest pain, pleuritic in nature Rule out structural heart disease HX of paroxysmal AFib status post cardiac ablations x2 (2022) Status post left atrial appendage closure (Watchman device (2023) (on plavix and metoprolol XL) Remote Hx of DVT/PE (2003) Distention Dyslipidemia Morbid obesity Plan/Recommendation (Dr. Stock) The patient presents with noncardiac chest pain which is pleuritic in nature. She underwent a cardiac catheterization without catheter based intervention given normal coronaries in 2023. In the setting of an unremarkable echocardiogram, there is no further cardiac workup indicated at this time. Continue Plavix therapy and metoprolol XL as advised by primary psychology clinician at [facility]. She has a follow up appointment with Cardiology on November 05, 2025. There is no further cardiac workup indicated at this time. Kindly call with any questions or concerns. Thank you for allowing us to participate in this patient's care. This medical document was created using an electronic medical record system with voice recognition software and computerized dictation system. Although this document has been carefully reviewed, there might still be some phonetic and typographical errors. Occasional wrong-word or ``sound-alike substitutions may have occurred due to the inherent limitations of voice recognition software. These areas are purely typographical due to imperfections of the software programs and do not reflect any compromise in the patient's medical care. Ple ase read the chart carefully and recognize, using context, where these substitutions have occurred. Plan discussed with: Patient, Other NYHA Physical activity limitations: NA Date of Service: Oct 13, 2025 Billing Provider: EMILY ALSTON Cardiology Common Codes: [id number] INP/OBS CARE (High) EMILY ALSTON [employer] Oct 13, 2025 18:32
--- NOTE | 2025-10-13 20:21 | DVHSR ---
APPROVED REPORT EXAM: Two-dimensional and M-mode echocardiogram with Doppler and color Doppler. Blood Pressure: 138/72 mmHg INDICATION R/O structural heart disease Surgery/Intervention Watchman device RISK FACTORS Obesity: Height: 5'6", Weight: 268 DIMENSIONS LVDd 4.4 (3.8-5.7cm) LA (2D) 3.7 (1.9-4.0cm) Aortic Root 3.2 (2.0-3.7cm) LVDs 2.6 (2.5-4.0cm) LA (MM) (1.9-4.0cm) Aortic Cusp Exc 1.9 (1.5-2.0cm) EF (%) 60.0 (55-70%) Rt. Atrium 3.9 (1.9-4.0cm) Asc. Aorta cm IVSd 1.4 (0.7-1.1cm) RV (D) (1.8-2.4cm) PWd 1.3 (0.7-1.1cm) Mitral Valve Mitral Mitral Stenosis E wave 0.84m/s MV Mean GR. mmHg A wave 0.48m/s MV Peak GR. mmHg E/A ratio 1.8 2D MVA cm2 DECEL Time 210ms PRESS 1/2 Time ms Aortic Valve Aortic Valve Aortic Stenosis V1 1.16m/s AO Mean GR. 6mmHg V2 1.64m/s AO Peak GR. 11mmHg LVOT Diameter 2.1 (1.8-2.4cm) Doppler EB 2.45cm2 Pulmonic Valve V2 1.08m/s Other Information Technically limited study due to body habitus. Conclusion LV EF IS 65% AND IS NORMAL NORMAL VALVES NORMAL RV FUNCTION NO EFFUSION
--- NOTE | 2025-10-13 20:45 | DVHINCON2 ---
Date Seen: Oct 13, 2025 Referring Physician MD Mari[place] Reason for Consultation History of A-fib History of Present Illness This is a pleasant 45-year-old female with a PMH of BLE DVT/PE with warfarin therapy x6 months in 2003, hypertension, dyslipidemia, asthma, GERD, history of thyroid disease, history of colon cancer with resection, history of small-bowel obstruction, sleep apnea, morbid obesity who presented to emergency room with a chief complaint of chest pain since yesterday. Describes her chest pain as substernal, radiating to the right back area, non provoked, tightness like, and worse with deep inspiration and cough. The patient underwent multiple 12 lead electrocardiogram x2 revealing a sinus rhythm with nonspecific ST segment changes to inferolateral leads. Serial troponin levels are negative. Follows up in the outpatient setting with the primary asset availability leader at [facility] given history of atrial fibrillation undergoing two cardiac ablations in April and September 2023, left atrial appendage closure (Watchman device) in 12/2023, and a cardiac catheterization without catheter based intervention given normal coronaries in 12/2023.Eliquis therapy was discontinued approximately six months ago and she is currently on Plavix and metoprolol XL. Reports last atrial fibrillation event occurred six months ago. Past Medical History Past medical history reviewed. No other significant than mentioned above. Past Surgical History Left atrial appendage closure (Watchman device), 2023 Cardiac ablations x2, 2022 Colon cancer resection x3 Appendectomy Hysterectomy Family History: Arthritis G8 MOTHER Diabetes mellitus G8 FATHER FH: CHF (congestive heart failure) G8 MOTHER FH: kidney failure G8 FATHER Hypertension G8 FATHER Allergies: Coded Allergies: Acetaminophen (Verified Allergy, Unknown, 09/06/15) Aspirin (Verified Allergy, Unknown, 11/21/19) Codeine (Verified Allergy, Unknown, 11/21/19) Hydrocodone (Verified Allergy, Unknown, 09/06/15) Hydromorphone (Verified Allergy, Unknown, 11/21/19) Levothyroxine (Verified Allergy, Unknown, 09/06/15) Lisinopril (Verified Allergy, Unknown, 11/21/19) Methadone (Verified Allergy, Unknown, 11/21/19) Morphine (Verified Allergy, Unknown, 09/06/15) Mupirocin (Verified Allergy, Unknown, 11/21/19) Nitrofurantoin (Verified Allergy, Unknown, 09/06/15) Nitroglycerin (Verified Allergy, Unknown, 11/21/19) Penicillins (Verified Allergy, Unknown, 11/21/19) Tramadol (Verified Allergy, Unknown, 11/21/19) Home Meds Reported Medications Estradiol (Estradiol) 0.05 Mg/24 Hr Dis, 1 PATCH TD QWEEKLY for 84 Days, #12 10/13/25 Hydroxyzine Hcl (Hydroxyzine Hcl) 25 Mg Tab, 1 TAB PO QPM for 30 Days, #30 10/13/25 Tizanidine HCl (Tizanidine Hydrochloride) 2 Mg Cap, 2 CAP PO QPM for 45 Days, #90 10/13/25 Clonidine Hydrochloride (Clonidine Hcl) 0.1 Mg Tab, 1 TAB PO BID PRN for 15 Days, #30 10/13/25 Azelastine Hcl (Azelastine Hcl) 0.1 % Spr, 2 SPRAYS EACHNOSTRI BID for 25 Days, #30 10/13/25 Fluticasone Propionate (Nasal) (Fluticasone Propionate Na) 50 Mcg/Act Spr, 1 SPRAY NA BID for 84 Days, #48 10/13/25 Lidocaine (Ztlido) 1.8 % Pad, 1.8 % EX [id number], PAD 10/12/25 Cholecalciferol (VITAMIN D3) 2,000 Unit Tab, 1 TAB PO DAILY, #30 TAB 5 Refills 10/12/25 Tiotropium [place] Monohydrate (Spiriva Respimat) 2.5 Mcg/Act Spr, 2.5 MCG IN DAILY, SPRAY 10/12/25 Ipratropium-Albuterol (COMBIVENT RESPIMAT) Respimat Aer, 1 IN, AER 10/12/25 Metoprolol Succinate (Kapspargo Sprinkle) 100 Mg Cap, 100 MG PO DAILY, CAP 10/12/25 Rizatriptan Benzoate (RIZATRIPTAN BENZOATE) 10 Mg Tab, 10 MG OR Q2HPRN, TAB 10/12/25 Clopidogrel Bisulfate (Plavix) 75 Mg Tab, 1 TAB PO DAILY for 90 Days, #90 10/12/25 Atorvastatin Calcium (ATORVASTATIN CALCIUM) 40 Mg Tab, 1 TAB PO DAILY for 90 Days, #90 5 Refills 10/12/25 Montelukast Sodium (MONTELUKAST SODIUM) 10 Mg Tab, 1 TAB PO HS for 90 Days, #90 10/12/25 Pantoprazole Sodium Sesquihydr (Protonix) 40 Mg Tab, 1 TAB PO BID for 90 Days, #180 BEFORE MEALS. 10/12/25 Budesonide-Formoterol Fumarate (Breyna 80-4.5 Mcg/Act) 1 Aer Aer, 2 PUFF IN BID for 25 Days, #10.2 10/12/25 Cetirizine Hcl (Kls Aller-Jennifer) 10 Mg Tab, 1 TAB PO DAILY for 90 Days, #90 10/12/25 Clotrimazole (Clotrimazole) 1 % Cre, 1 APPLIC TOP Q12HR for 30 Days, APPLIC 10/12/25 Nifedipine (Nifedipine Er) 60 Mg Tab, 1 TAB PO DAILY for 90 Days, #90 10/12/25 Losartan Potassium (Losartan Potassium) 100 Mg Tab, 100 MG PO HS for 30 Days, MG 10/12/25 Chlorthalidone (Chlorthalidone) 50 Mg Tab, 1 TAB PO DAILY for 60 Days, #60 10/12/25 Discontinued Reported Medications Fluticasone Propionate (Fluticasone Propionate) 0.05 % Cre, 50 MCG ZULEYMA BID for 30 Days, MCG 10/12/25 Chlorthalidone (Chlorthalidone) 25 Mg Tab, 1 TAB PO DAILY 05/04/23 Current Medications Current Medications Medications (Trade) Dose Ordered Sig/Ana Route PRN Reason Start Time Stop Time Status Last Admin Atorvastatin Calcium (Lipitor) 40 mg HS PO 10/12/25 22:00 10/12/25 21:32 Doxycycline Hyclate 100 ml @ 50 mls/hr Q12H IV 10/13/25 14:45 10/13/25 18:12 Review of Systems Constitutional: No symptom reported Ears, Nose, & Throat: No symptom reported Eyes: No symptom reported Neurological: No symptoms reported Pulmonary/Respiratory: No symptom reported Cardiovascular: Pleuritic chest pain Gastrointestinal: No symptom reported Genitourinary: No symptom reported Musculoskeletal: No symptom reported Skin: No symptom reported Psychiatric: No symptom reported Endocrine: No symptom reported Hemotologic/Lymphatic: No symptom reported Vital Signs Vital Signs Date Time Temp Pulse Resp B/P (MAP) Pulse Ox O2 Delivery O2 Flow Rate FiO2 10/13/25 18:40 100 Room Air 0.0 10/13/25 18:40 21 10/13/25 17:41 98.0 84 18 151/90 (110) 98.0 Physical Exam GENERAL: Alert and oriented x 3. No acute distress. Morbidly obese. EYES: PERRL, EOMI. Anicteric. HENT: Moist mucous membranes. LUNGS: Clear to auscultation bilaterally. CARDIOVASCULAR: Regular rate and rhythm. ABDOMEN: Soft, non-tender and non-distended. EXTREMITIES: No edema. NEUROLOGIC: No focal neurological deficits. SKIN: Warm, dry. Labs/Diagnostic Data Labs Test 10/13/25 14:43 10/13/25 14:16 10/13/25 12:45 10/13/25 04:15 Range/Units D-Dimer, Quantitative 0.33 0.0-0.49 mg/L FEU Urine Opiates Screen Neg NEGATIVE Urine Fentanyl Screen Neg NEGATIVE Urine Barbiturates Screen Neg NEGATIVE Urine Phencyclidine Screen Neg NEGATIVE Urine Amphetamines Screen Neg NEGATIVE Urine Benzodiazepines Screen Neg NEGATIVE Urine Cocaine Screen Neg NEGATIVE Urine Cannabinoids Screen Neg NEGATIVE Influenza Type A Antigen Negative Negative Influenza Type B Antigen Negative Negative SARS-CoV-2 Antigen (Rapid) Negative NEGATIVE White Blood Count 11.7 #H 4.4-10.8 10^3/uL Red Blood Count 4.35 4.0-5.20 10^6/uL Hemoglobin 13.3 12.2-16.2 g/dL Hematocrit 39.6 36.0-46.0 % Mean Corpuscular Volume 91.0 80.0-100.0 fL Mean Corpuscular Hemoglobin 30.5 28.0-32.0 pg Mean Corpuscular Hemoglobin Concent 33.6 32.0-36.0 g/dL Red Cell Distribution Width 14.2 11.8-14.3 % Platelet Count 259 140-450 10^3/uL Mean Platelet Volume 8.1 6.9-10.8 fL Neutrophils (%) (Auto) 92.3 H 37.0-80.0 % Lymphocytes (%) (Auto) 6.1 L 10.0-50.0 % Monocytes (%) (Auto) 1.5 0.0-12.0 % Eosinophils (%) (Auto) 0.0 0.0-7.0 % Basophils (%) (Auto) 0.1 0.0-2.0 % Neutrophils # (Auto) 10.8 H 1.6-8.6 10 ^3/uL Lymphocytes # (Auto) 0.7 0.4-5.4 10 ^3/uL Monocytes # (Auto) 0.2 0-1.3 10 ^3/uL Eosinophils # (Auto) 0 0-0.8 10 ^3/uL Basophils # (Auto) 0 0-0.2 10 ^3/uL Nucleated Red Blood Cells 0.0 % Sodium Level 140 136-145 mmol/L Potassium Level 4.0 3.5-5.1 mmol/L Chloride Level 109 H 98-107 mmol/L Carbon Dioxide Level 22 20-31 mmol/L Anion Gap 9 5-15 Blood Urea Nitrogen 8 L 9-23 mg/dL Creatinine 1.04 H 0.550-1.02 mg/dL Glomerular Filtration Rate Calc 67 >90 mL/min BUN/Creatinine Ratio 7.7 L 10.0-20.0 Serum Glucose 144 H 74-106 mg/dL Calcium Level 9.3 8.7-10.4 mg/dL Total Bilirubin 0.6 0.2-1.0 mg/dL Aspartate Amino Transferase (AST) 17 13-40 U/L Alanine Aminotransferase (ALT) 18 7-40 U/L Alkaline Phosphatase 79 46-116 U/L B-Type Natriuretic Peptide 24.58 0-100 pg/mL Total Protein 6.8 5.7-8.2 g/dL Albumin 3.9 3.2-4.8 g/dL Triglycerides Level 52 < 150 mg/dL Cholesterol Level 155 < 200 mg/dL LDL Cholesterol 91 < 100 mg/dL HDL Cholesterol 52 40-59 mg/dL Thyroid Stimulating Hormone (TSH) 0.32 L 0.55-4.78 uIU/mL Beta HCG, Quantitative < 0.0 L 1.5-4.2 mIU/mL Test 10/11/25 23:54 10/11/25 22:00 Range/Units Troponin I High Sensitivity < 3 L </=34 ng/L Urine Color Colorless Yellow Urine Clarity Clear Clear Urine pH 7.5 5.0-9.0 Urine Specific [place] 1.011 1.001-1.035 Urine Protein Negative Negative Urine Ketones Negative Negative Urine Blood Negative Negative /uL Urine Nitrite Negative Negative Urine Bilirubin Negative Negative Urine Urobilinogen Normal Negative mg/dL Urine Leukocyte Esterase Negative Negative /uL Urine RBC None seen 0 - 4 /hpf Urine Microscopic WBC < 1 0-5 /HPF Urine Squamous Epithelial Cells Few <5 /hpf Urine Bacteria None seen None Seen /hpf Urine Glucose Normal Normal mg/dL Assessment Noncardiac chest pain, pleuritic in nature. Rule out structural heart disease. HX of paroxysmal AFib status post cardiac ablations x2 (2022). Status post left atrial appendage closure (Watchman device (2023) (on plavix and metoprolol XL). Remote Hx of DVT/PE (2003). Distention. Dyslipidemia. Morbid obesity. Plan/Recommendation I agree with your ongoing assessment and care of plan. Patient has been seen by Traci Froman NP on my behalf. We have discussed the plan with the patient. The patient presents with noncardiac chest pain which is pleuritic in nature. She underwent a cardiac catheterization without catheter based intervention given normal coronaries in 2023. In the setting of an unremarkable echocardiogram, there is no further cardiac workup indicated at this time. Continue Plavix therapy and metoprolol XL as advised by primary asset availability leader at [facility]. She has a follow up appointment with Cardiology on November 05, 2025. Additional plan as per the hospital course. Plan discussed with: Patient NYHA Physical activity limitations: NA Date of Service: Oct 13, 2025 Billing Provider: CORAL HURT MD Cardiology Common Codes: 40217-MIOIERT INP/OBS CARE (High) Cardiology Consultation Codes: 17679-[id number] CONSULT <45MIN CORAL HURT MD Oct 13, 2025 20:45
[2025-10-13] MEDS: MELATONIN 5 MG TAB PO ONE (22:13)
[2025-10-14] VITALS (11 sets, daily range): BP systolic 146–165; BP diastolic 89–103; PULSE 60–83; RESP 16–20; TEMP 36.7; O2SAT 95–99
[2025-10-14] MEDS: hydrALAZINE HCL 20 MG/ML VL IV ONE (01:14)
[2025-10-14 06:35] LABS: Hematocrit 38.0 % (36.0-46.0); Hemoglobin 12.9 g/dL (12.2-16.2); Mean Corpuscular Hemoglobin 30.8 pg (28.0-32.0); Mean Corpuscular Volume 90.4 fL (80.0-100.0); Nucleated Red Blood Cells % 0.0 %
[2025-10-14 06:54] LABS: Alanine Aminotransferase 16 U/L (7-40); Albumin 3.8 g/dL (3.2-4.8); Alkaline Phosphatase 84 U/L (46-116); Anion Gap 9 (5-15); BUN/Creatinine Ratio 8.5 (10.0-20.0); Calcium 8.9 mg/dL (8.7-10.4); Carbon Dioxide 24 mmol/L (20-31); Potassium 4.1 mmol/L (3.5-5.1); Sodium 141 mmol/L (136-145); Total Protein 6.6 g/dL (5.7-8.2)
[2025-10-14 06:55] LABS: Bilirubin, Total 0.5 mg/dL (0.2-1.0); Blood Urea Nitrogen 9 mg/dL (9-23); Chloride 108 mmol/L (98-107); Glucose 131 mg/dL (74-106)
[2025-10-14] MEDS: FLUCONAZOLE 100 MG TAB PO ONE (14:45)
--- NOTE | 2025-10-14 18:02 | DVHDS2 ---
Discharge Summary Date of Admission Oct 12, 2025 at 05:21 Date of Discharge: Oct 14, 2025 Labs/Diagnostic Data: Laboratory Results Test 10/14/25 06:04 10/13/25 14:43 10/13/25 14:16 10/13/25 12:45 White Blood Count 10.5 10^3/uL (4.4-10.8) Red Blood Count 4.20 10^6/uL (4.0-5.20) Hemoglobin 12.9 g/dL (12.2-16.2) Hematocrit 38.0 % (36.0-46.0) Mean Corpuscular Volume 90.4 fL (80.0-100.0) Mean Corpuscular Hemoglobin 30.8 pg (28.0-32.0) Mean Corpuscular Hemoglobin Concent 34.1 g/dL (32.0-36.0) Red Cell Distribution Width 14.0 % (11.8-14.3) Platelet Count 264 10^3/uL (140-450) Mean Platelet Volume 8.1 fL (6.9-10.8) Neutrophils (%) (Auto) 87.9 % (37.0-80.0) Lymphocytes (%) (Auto) 9.0 % (10.0-50.0) Monocytes (%) (Auto) 3.1 % (0.0-12.0) Eosinophils (%) (Auto) 0.0 % (0.0-7.0) Basophils (%) (Auto) 0.0 % (0.0-2.0) Neutrophils # (Auto) 9.2 10 ^3/uL (1.6-8.6) Lymphocytes # (Auto) 0.9 10 ^3/uL (0.4-5.4) Monocytes # (Auto) 0.3 10 ^3/uL (0-1.3) Eosinophils # (Auto) 0 10 ^3/uL (0-0.8) Basophils # (Auto) 0 10 ^3/uL (0-0.2) Nucleated Red Blood Cells 0.0 % Sodium Level 141 mmol/L (136-145) Potassium Level 4.1 mmol/L (3.5-5.1) Chloride Level 108 mmol/L (98-107) Carbon Dioxide Level 24 mmol/L (20-31) Anion Gap 9 (5-15) Blood Urea Nitrogen 9 mg/dL (9-23) Creatinine 1.06 mg/dL (0.550-1.02) Glomerular Filtration Rate Calc 65 mL/min (>90) BUN/Creatinine Ratio 8.5 (10.0-20.0) Serum Glucose 131 mg/dL (74-106) Calcium Level 8.9 mg/dL (8.7-10.4) Total Bilirubin 0.5 mg/dL (0.2-1.0) Aspartate Amino Transferase (AST) 17 U/L (13-40) Alanine Aminotransferase (ALT) 16 U/L (7-40) Alkaline Phosphatase 84 U/L (46-116) Total Protein 6.6 g/dL (5.7-8.2) Albumin 3.8 g/dL (3.2-4.8) D-Dimer, Quantitative 0.33 mg/L FEU (0.0-0.49) Urine Opiates Screen Neg (NEGATIVE) Urine Fentanyl Screen Neg (NEGATIVE) Urine Barbiturates Screen Neg (NEGATIVE) Urine Phencyclidine Screen Neg (NEGATIVE) Urine Amphetamines Screen Neg (NEGATIVE) Urine Benzodiazepines Screen Neg (NEGATIVE) Urine Cocaine Screen Neg (NEGATIVE) Urine Cannabinoids Screen Neg (NEGATIVE) Influenza Type A Antigen Negative (Negative) Influenza Type B Antigen Negative (Negative) SARS-CoV-2 Antigen (Rapid) Negative (NEGATIVE) Test 10/13/25 04:15 10/11/25 23:54 10/11/25 22:00 B-Type Natriuretic Peptide 24.58 pg/mL (0-100) Triglycerides Level 52 mg/dL (< 150) Cholesterol Level 155 mg/dL (< 200) LDL Cholesterol 91 mg/dL (< 100) HDL Cholesterol 52 mg/dL (40-59) Thyroid Stimulating Hormone (TSH) 0.32 uIU/mL (0.55-4.78) Beta HCG, Quantitative < 0.0 mIU/mL (1.5-4.2) Troponin I High Sensitivity < 3 ng/L (</=34) Urine Color Colorless (Yellow) Urine Clarity Clear (Clear) Urine pH 7.5 (5.0-9.0) Urine Specific [place] 1.011 (1.001-1.035) Urine Protein Negative (Negative) Urine Ketones Negative (Negative) Urine Blood Negative /uL (Negative) Urine Nitrite Negative (Negative) Urine Bilirubin Negative (Negative) Urine Urobilinogen Normal mg/dL (Negative) Urine Leukocyte Esterase Negative /uL (Negative) Urine RBC None seen /hpf (0 - 4) Urine Microscopic WBC < 1 /HPF (0-5) Urine Squamous Epithelial Cells Few /hpf (<5) Urine Bacteria None seen /hpf (None Seen) Urine Glucose Normal mg/dL (Normal) Other Laboratory Tests 10/14/25 06:04 Brief Hx & Hospital Course: 45-year-old female with a known history of paroxysmal AFib, chronic asthma, hypertension presented to the hospital with the increasing shortness a breath found to have suspected acute asthma exacerbation. Patient also has a paroxysmal AFib. Patient was seen by Cardiology does not recommend any Eliquis please continue metoprolol and Plavix. Patient is being discharged under stable condition. Diet weight reduction and exercise counseling. Condition at Discharge: Stable Final Diagnosis/Problems List 45-year-old female with a known history of paroxysmal AFib, chronic asthma, hypertension presented to the hospital with the increasing shortness a breath found to have 1. Acute asthma exacerbation, currently compensated 2. Paroxysmal AFib status post cardiac ablation in the past 3. Hypertension 4. Morbid obesity classII Discharge Disposition: Home SNF Discharge Will this Physician continue t: No Discharge Instruct/Medications Diet: Cardiac 2g Na,low cholest Activity: No Restrictions, As Tolerated Follow Up/Referral: Please follow up with the PCP in 1-2 weeks Follow up with the train station server as scheduled in [facility] on November 05 Medications: Resume home medication including beta balbir as well as Plavix. Continued Medications: Atorvastatin Calcium (Atorvastatin Calcium) 40 Mg Tab 1 TAB PO DAILY for 90 Days, #90 5 Refills Azelastine Hcl (Azelastine Hcl) 0.1 % Spr 2 SPRAYS EACHNOSTRI BID for 25 Days, #30 Budesonide-Formoterol Fumarate (Breyna 80-4.5 Mcg/Act) 1 Aer Aer 2 PUFF IN BID for 25 Days, #10.2 Cetirizine Hcl (Kls Aller-Jennifer) 10 Mg Tab 1 TAB PO DAILY for 90 Days, #90 Chlorthalidone (Chlorthalidone) 50 Mg Tab 1 TAB PO DAILY for 60 Days, #60 Cholecalciferol (Vitamin D3) 2,000 Unit Tab 1 TAB PO DAILY, #30 TAB 5 Refills Clonidine Hydrochloride (Clonidine Hcl) 0.1 Mg Tab 1 TAB PO BID PRN for 15 Days, #30 Clopidogrel Bisulfate (Plavix) 75 Mg Tab 1 TAB PO DAILY for 90 Days, #90 Clotrimazole (Clotrimazole) 1 % Cre 1 APPLIC TOP Q12HR for 30 Days, APPLIC Estradiol (Estradiol) 0.05 Mg/24 Hr Dis 1 PATCH TD QWEEKLY for 84 Days, #12 Fluticasone Propionate (Nasal) (Fluticasone Propionate Na) 50 Mcg/Act Spr 1 SPRAY NA BID for 84 Days, #48 Hydroxyzine Hcl (Hydroxyzine Hcl) 25 Mg Tab 1 TAB PO QPM for 30 Days, #30 Ipratropium-Albuterol (Combivent Respimat) Respimat Aer 1 IN, AER Lidocaine (Ztlido) 1.8 % Pad 1.8 % EX [id number], PAD Losartan Potassium (Losartan Potassium) 100 Mg Tab 100 MG PO HS for 30 Days, MG Metoprolol Succinate (Kapspargo Sprinkle) 100 Mg Cap 100 MG PO DAILY, CAP Montelukast Sodium (Montelukast Sodium) 10 Mg Tab 1 TAB PO HS for 90 Days, #90 Nifedipine (Nifedipine Er) 60 Mg Tab 1 TAB PO DAILY for 90 Days, #90 Pantoprazole Sodium Sesquihydr (Protonix) 40 Mg Tab 1 TAB PO BID for 90 Days, #180 BEFORE MEALS. Rizatriptan Benzoate (Rizatriptan Benzoate) 10 Mg Tab 10 MG OR Q2HPRN, TAB Tiotropium [place] Monohydrate (Spiriva Respimat) 2.5 Mcg/Act Spr 2.5 MCG IN DAILY, SPRAY Tizanidine HCl (Tizanidine Hydrochloride) 2 Mg Cap 2 CAP PO QPM for 45 Days, #90 Scheduled Atorvastatin Calcium (Atorvastatin Calcium), 1 TAB PO DAILY, (Reported) Azelastine Hcl (Azelastine Hcl), 2 SPRAYS EACHNOSTRI BID, (Reported) Budesonide-Formoterol Fumarate (Breyna 80-4.5 Mcg/Act), 2 PUFF IN BID, (Reported) Cetirizine Hcl (Kls Aller-Jennifer), 1 TAB PO DAILY, (Reported) Chlorthalidone (Chlorthalidone), 1 TAB PO DAILY, (Reported) Cholecalciferol (Vitamin D3), 1 TAB PO DAILY, (Reported) Clonidine Hydrochloride (Clonidine Hcl), 1 TAB PO BID PRN, (Reported) Clopidogrel Bisulfate (Plavix), 1 TAB PO DAILY, (Reported) Clotrimazole (Clotrimazole), 1 APPLIC TOP Q12HR, (Reported) Estradiol (Estradiol), 1 PATCH TD QWEEKLY, (Reported) Fluticasone Propionate (Nasal) (Fluticasone Propionate Na), 1 SPRAY NA BID, (Reported) Hydroxyzine Hcl (Hydroxyzine Hcl), 1 TAB PO QPM, (Reported) Lidocaine (Ztlido), 1.8 % EX [id number], (Reported) Losartan Potassium (Losartan Potassium), 100 MG PO HS, (Reported) Metoprolol Succinate (Kapspargo Sprinkle), 100 MG PO DAILY, (Reported) Montelukast Sodium (Montelukast Sodium), 1 TAB PO HS, (Reported) Nifedipine (Nifedipine Er), 1 TAB PO DAILY, (Reported) Pantoprazole Sodium Sesquihydr (Protonix), 1 TAB PO BID, (Reported) Rizatriptan Benzoate (Rizatriptan Benzoate), 10 MG OR Q2HPRN, (Reported) Tiotropium [place] Monohydrate (Spiriva Respimat), 2.5 MCG IN DAILY, (Reported) Tizanidine HCl (Tizanidine Hydrochloride), 2 CAP PO QPM, (Reported) Miscellaneous Medications Ipratropium-Albuterol (Combivent Respimat), 1 IN, (Reported) Discontinued Medications Chlorthalidone (Chlorthalidone), 1 TAB PO DAILY, (Reported) Fluticasone Propionate (Fluticasone Propionate), 50 MCG ZULEYMA BID, (Reported) Discontinued Reason: Prescription changed Discharge Statement: "Patient was advised to return to the ER or call 911 if any headaches, dizziness, shortness of breath, chest pain, abdominal pain, bleeding, fevers, or worsening of medical condition. Patient was counseled about treatment plan, medications, possible side effects, patientverbalized understanding. All questions were answered to the best of my ability. This discharge took greater then 30 minutes in planning, reviewing documentation, counseling the patient, and discussing with other team members." ASSESSMENT ASSESSMENT Assessment 45-year-old female with a known history of paroxysmal AFib, chronic asthma, hypertension presented to the hospital with the increasing shortness a breath found to have 1. Acute asthma exacerbation, currently compensated 2. Paroxysmal AFib status post cardiac ablation in the past 3. Hypertension 4. Morbid obesity classII Date of Service: Oct 14, 2025 Billing Provider: ALIS LIPSCOMB MD Common Visit Codes: 89340-RBI/OBS DISCH DAY >30min ALIS LIPSCOMB MD Oct 14, 2025 18:02
--- NOTE | 2025-10-15 00:08 | DVHPN2 ---
Progress Note - Dictate Date Seen: Oct 14, 2025 Medical Necessity Reason Pt with a Central, PICC or Fol: No Subjective Patient was seen and evaluated in follow-up. Patient has no new complaints at this time. Echocardiogram showed LV EF of 65%. Patient is cardiac stable for discharge. Telemetry reviewed. vital signs Vital Sign Date Time Temp Pulse Resp B/P (MAP) Pulse Ox O2 Delivery O2 Flow Rate FiO2 10/14/25 19:09 99 Room Air 0.0 10/14/25 19:09 21 10/14/25 17:10 36.7 63 16 10/14/25 17:09 158/95 (116) objective GENERAL: Alert and oriented x 3. No acute distress. Morbidly obese. EYES: PERRL, EOMI. Anicteric. HENT: Moist mucous membranes. LUNGS: Clear to auscultation bilaterally. CARDIOVASCULAR: Regular rate and rhythm. ABDOMEN: Soft, non-tender and non-distended. EXTREMITIES: No edema. NEUROLOGIC: No focal neurological deficits. SKIN: Warm, dry. laboratory and microbiology Laboratory Tests 10/14/25 06:04 Test 10/14/25 06:04 Range/Units Serum Glucose 131 H 74-106 mg/dL Problem List Noncardiac chest pain, pleuritic in nature. Rule out structural heart disease. HX of paroxysmal AFib status post cardiac ablations x2 (2022). Status post left atrial appendage closure (Watchman device (2023) (on plavix and metoprolol XL). Remote Hx of DVT/PE (2003). Distention. Dyslipidemia. Morbid obesity. Assessment/Plan Continued all current supportive medical care. Eliquis. Lipitor. Losartan, Amlodipine. IV antibiotics as ordered. IV Hydralazine for SBP > 160. Additional plan as per the hospital course. Plan discussed with: Patient CORAL HURT MD Oct 14, 2025 21:48
--- NOTE | 2025-10-15 09:53 | ECG ---
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
== END 2025-10-14 19:50 | disposition home or self-care (01) | DRG 199 ==
LOC: ER 21:43 → OVERFLOW 10-12 05:21 → TELE-CENTR 10-13 23:00
PROVIDERS: ADMIT Internal Medicine Geriatric Medicine; ATTEND Internal Medicine Geriatric Medicine
DX: I16.0 Hypertensive urgency (principal); J45.901 Unspecified asthma with (acute) exacerbation; I50.32 Chronic diastolic (congestive) heart failure; Z79.02 Long term (current) use of antithrombotics/antiplatelets; I11.0 Hypertensive heart disease with heart failure; E66.01 Morbid (severe) obesity due to excess calories; Z20.822 Contact with and (suspected) exposure to COVID-19; I48.0 Paroxysmal atrial fibrillation; E78.5 Hyperlipidemia, unspecified; K21.9 Gastro-esophageal reflux disease without esophagitis; Z86.73 Personal history of transient ischemic attack (TIA), and cerebral infarction without residual deficits; Z90.710 Acquired absence of both cervix and uterus; Z88.6 Allergy status to analgesic agent; Z88.5 Allergy status to narcotic agent; Z88.0 Allergy status to penicillin; Z88.8 Allergy status to other drugs, medicaments and biological substances; Z98.51 Tubal ligation status; Z85.038 Personal history of other malignant neoplasm of large intestine; Z83.3 Family history of diabetes mellitus; Z82.49 Family history of ischemic heart disease and other diseases of the circulatory system; Z82.61 Family history of arthritis; Z86.711 Personal history of pulmonary embolism; Z86.718 Personal history of other venous thrombosis and embolism; Z68.41 Body mass index [BMI] 40.0-44.9, adult
CPT/HCPCS: 36415; 71045; 80053; 80061; 80307; 81001; 83880; 84443; 84484; 84702; 85025; 85379; 87426; 87804; 93005; 93306; 94640; 99291; G0378; J3490